=== PATIENT | female | born 1935 | race Caucasian/White ===

== ENCOUNTER 2021-05-28 12:30 | Outpatient (RCR) | payer MEDICARE, BC, SELFPAY ==
--- NOTE | 2021-05-10 11:53 | HP.PTEVAL ---
Patient's Visit Information DELORES MONTOYA is a 86 year old F referred to Physical Therapy by Dr. Alexys Bond MD with a diagnosis of Recurrent falls. Date of Evaluation: 05/10/21 Physical Therapist: Mino Das DPT, OCS, CSCS - Visit Plan Frequency: 2x /Week Duration: 2-4 Weeks Plan: Pt adamant for minimal visits, agreeable to 2x/week for 2 weeks to learn HEP for LE strength and core strength and balance and transfer off floor that she can do at home with pics. pLease give her these as soon as safety allows. HS stretch given today. EG to f/u one month later. - Subjective Dtr in law present and patient not happy about being here. She fell and cannot get up. Fell last week and has done it a couple times. Tripped on sidewalk one time and tripped on lip the other day. No injuries. Hard to get up. Needed UE assist on stand and support. Lives alone and drives adn wants I. Basic ADLs are getting done, scott helps her clean. Dresses herself. Does own grocery shopping. No stairs at home... one up to porch and three to house with bars to hold on to, they are no problem. Sleeps well most of time. No pain, no dizzyness, no neuropathy. Not employed. Hobbies include crossword puzzles and reading and gameshows. No regular exercises. - Objective Walks I but slow and short steps, hesitant at times, no LOB today. Trasnfers with UE I, steps with two rails I, obviously weak in LE and pulls slightly with UE. Bed and chair trasnfers I. Romberg eo and ec I for 30 seconds, recovering from BW perturbations harder than FW. heel and toe raises I. LE AROM WFL and without obvious asymmetries, HS mod tight at -30 90/90 test. reflexes 2/3 patella and achilles. Sensation LE WNL to gross light touch. Coordination to reciprocal tapping at slight deficit B. UE AROM WFL - Balance/Special Test Scores Functional Gait Assessment Score: 22 % Disability: 26.6700 Lower Extremity Functional Score: 43 - Goals Goal 1:: I approp HEP for HS stretch, balance and core./LE strength via HEP Goal Time Frame: 2-4 Weeks Goal 2:: FGA to diminish fall risk Goal Time Frame: 2-4 Weeks Goal 3:: Pt feel 50% safer with mobility Goal Time Frame: 2-4 Weeks - Rehabilitation Potential Physical Therapy Diagnosis: weakness and balance deficits from sedentarism effecting mobility/safety Rehabilitation Potential: Fair - Anticipated Interventions Patient/Client Instruction: Educate patient on: Condition, Plan of Care For the Purpose of:: To increase tolerance to activity/condition/position, To improve ability of physical actions for home/community/work/leisure, To improve gait and locomotor functions Therapeutic Exercise to Include: Balance training, Gait and locomotor training For the Purpose of:: To increase tolerance to activity/condition/position, To improve ability of physical actions for home/community/work/leisure, To improve gait and locomotor functions Thank you for the opportunity to evaluate your patient. For Medicare and Medicare HMO plans, please review the plan of care and approve it. It will need to be FAXED BACK to us at [phone] for Medicare purposes. For Medicare only, by signing this I certify the plan of care. Please let me know if there are questions or concerns regarding this plan of care. Physician Signature: Date:
--- NOTE | 2021-05-28 13:09 | HP.PTDCSUM ---
It has been my pleasure to treat DELORES MONTOYA referred by Dr. Alexys Bond MD, with the diagnosis of Recurrent falls for a total of 4 visit(s). Discharge Date: 05/28/21 Please see the following information for a summary of their discharge status. Subjective: No pain , doing home exercises 3x/week and feeling like it is getting stronger. Doing exercises 3x/week at home and feels better after she does them, doing them in the morning. Feeling stronger overall. No falls since starting PT. No AD used and climbing into truck easier. % Improvement: 25 Objective/Function: +2 on FGA, improving sit to stand and TUG. Wide AURELIA on gait but safe and I today. transfers I without UE. Goal 1:: I approp HEP for HS stretch, balance and core./LE strength via HEP Goal Progress: Goal Met Goal 2:: FGA to diminish fall risk Goal Progress: Goal Met Goal 3:: Pt feel 50% safer with mobility Goal Progress: Progressing Plan: d/c to HEP Discharge Comments: Pt can do exercises at home daily 5-6x/week and does not wish to continue PT any further If there are questions or concerns regarding this patient's physical therapy, please feel free to call me at [phone]. Thank you for the referral of this patient. Sincerely, Mino Das, DPT, OCS, CSCS Balance/Gait/Functional tests - Balance/Special Test Scores Functional Gait Assessment Score: 24 % Disability: 20.0000 Lower Extremity Functional Score: 51 TUG Test Time Seconds: 15 30 Second Chair Rise Test Seconds: 12
== END 2021-05-28 19:00 | disposition home or self-care (01) ==
LOC: PT 12:30
PROVIDERS: PCP Family Medicine; Referring Provider Family Medicine; Visit Provider Family Medicine
DX: R26.89 Other abnormalities of gait and mobility (principal); R29.6 Repeated falls
CPT/HCPCS: 97110; 97162; 97164

== ENCOUNTER 2021-10-29 13:12 | Inpatient (IN) | payer MEDICARE, BC, SELFPAY ==
[2021-10-29] VITALS (16 sets, daily range): BP systolic 103–125; BP diastolic 59–76; PULSE 75–115; RESP 18–26; TEMP 36.5–37.1; O2SAT 88–97; BMI 25.7; BMI 28.1
--- NOTE | 2021-10-29 13:28 | EKG12_ITS ---
Test Reason : Blood Pressure : / mmHG Vent. Rate : 098 BPM Atrial Rate : 468 BPM P-R Int : 000 ms QRS Dur : 156 ms QT Int : 406 ms P-R-T Axes : 000 018 165 degrees QTc Int : 518 ms Atrial fibrillation with premature ventricular or aberrantly conducted complexes Left bundle branch block Abnormal ECG Confirmed by JONNIE LARSEN, JINA ([id number]), research editor DAMARIS RAINES ([id number]) on 10/31/2021 8:15:48 AM Referred By: Confirmed By:JINA CRISTINA MD
--- NOTE | 2021-10-29 13:29 | EDS_ITS ---
HPI History of Present Illness Chief Complaint: General Illness Informant: patient and family Narrative Narrative: 86-year-old female presenting with a several day history of cough runny nose. Brought her to emergency. No reported fevers. She did have 1 emesis yesterday. No diarrhea. He states that they went to urgent care yesterday had a negative COVID and influenza test. Today the patient seemed to have labored breathing and some confusion. She denies sore throat or fever. Cough is nonproductive. Nursing notes pulse ox of 88% with good waveform. [facility] Medical History (Updated 10/29/21 @ 15:[address] Connor Crawford DO) Fracture, humerus closed, shaft Humerus fracture Hyperlipidemia Hypertension Hypokalemia ITP Home Medications cholecalciferol (vitamin D3) 25 mcg (1,000 unit) tablet 1,000 unit PO DAILY 06/22/14 [History Last Taken 03/06/17 22:00] docusate sodium 100 mg capsule 100 mg PO DAILY PRN PRN Constipation 06/22/14 [History Last Taken 03/06/17 22:00] quinapril 40 mg tablet 40 mg PO DAILY BP 06/22/14 [History Last Taken 03/07/17 10:00] amlodipine 5 mg tablet 10 mg PO DAILY BP 07/21/17 [History Last Taken Unknown] hydrochlorothiazide 12.5 mg capsule 12.5 mg PO QODAY 10/29/21 [History Last Taken Unknown] Allergy/AdvReac Type Severity Reaction Status Date / Time Tetanus Vaccines and Toxoid Allergy Low Verified 10/29/21 13:15 [Tetanus Vaccines & Toxoid] platelets Surgical History H/O eye surgery H/O splenectomy H/O: hysterectomy History of laparoscopic cholecystectomy Social History Smoking Status: Former smoker alcohol intake: never ROS ROS ED Constitutional Constitutional ED: Denies chills or weight loss Eyes Eyes: Denies change in vision or diplopia ENT ENT ED: Reports rhinorrhea; Denies ear pain or sore throat Cardiovascular Cardiovascular: Denies chest pain, orthopnea, palpitations or racing heartbeat Respiratory/Chest Respiratory/Chest: Reports cough, dyspnea and dyspnea on exertion; Denies orthopnea Gastrointestinal Gastrointestinal: Reports abdominal pain, nausea and vomiting; Denies diarrhea Genitourinary Genitourinary ED: Denies dysuria, hematuria or urinary frequency Musculoskeletal Musculoskeletal: Denies arthralgias or myalgias Integumentary Denies abscess or rash Neurologic Neurologic: Reports paresthesias and other; Denies headache(s) or weakness Psychiatric Psychiatric: Denies anxiety, depression, suicidal ideation or suicidal thoughts Endocrine Endocrinology: Denies polydipsia, polyphagia or polyuria Allergic/Immunologic Allergic/Immunologic ED: Denies mouth swelling, tongue swelling or urticaria EXAM Physical Exam Const Vital Signs: 10/29/21 13:13 10/29/21 13:37 10/29/21 13:12 Temperature 97.7 F L Temperature Source Temporal Pulse Rate 104 H Respiratory Rate 20 H Respiratory Effort Respiratory Pattern Blood Pressure 108/76 Blood Pressure Mean 86 Pulse Ox 94 94 88 Oxygen Delivery Method Room Air Nasal Cannula Room Air Oxygen Flow Rate (L/min) 2 10/29/21 13:14 10/29/21 13:41 10/29/21 13:50 Temperature 97.7 F L Temperature Source Temporal Pulse Rate 104 H 93 Respiratory Rate 20 H 26 H Respiratory Effort Short of Breath Labored Respiratory Pattern Tachypnea Tachypnea Blood Pressure 108/76 Blood Pressure Mean Pulse Ox 94 Oxygen Delivery Method Nasal Cannula Oxygen Flow Rate (L/min) 2 10/29/21 14:12 10/29/21 14:14 10/29/21 14:17 Temperature 98.8 F Temperature Source Temporal Pulse Rate 103 H Respiratory Rate 22 H Respiratory Effort Respiratory Pattern Blood Pressure 116/59 L Blood Pressure Mean 78 Pulse Ox 93 Oxygen Delivery Method Nasal Cannula Nasal Cannula Nasal Cannula Oxygen Flow Rate (L/min) 2 10/29/21 15:00 10/29/21 15:25 10/29/21 15:34 Temperature 98.4 F Temperature Source Temporal Pulse Rate 103 H 110 H 109 H Respiratory Rate 22 H 20 H 25 H Respiratory Effort Respiratory Pattern Tachypnea Blood Pressure 115/59 L 119/74 Blood Pressure Mean 77 89 Pulse Ox 94 95 Oxygen Delivery Method Nasal Cannula Nasal Cannula Oxygen Flow Rate (L/min) 2 Positive well nourished and well developed General Appearance ED: well developed HEENT Reports normocephalic, head/scalp atraumatic and moist mucous membranes Eyes PERRL and EOMs intact bilaterally Neck no lymphadenopathy, supple and no JVD Resp clear to auscultation bilaterally Resp Narrative: Patient with conversational dyspnea increased respiratory rate in the Cardio regular rate, regular rhythm and no murmurs GI normal to inspection, nondistended, normoactive bowel sounds and non-tender Palpation: soft Back/Spine no CVA tenderness and normal ROM Extremity General Extremety ED: Yes edema General Extremity: edema bilateral Neuro oriented x3 and CN's II-XII intact bilaterally Sensorium / Orientation: alert Motor Exam: strength 5/5 throughout Psych mental status grossly normal Mood & Affect: Negative for depressed or tearful Skin no rashes or lesions noted and no wounds MDM MDM MDM Narrative Medical decision making narrative: My interpretation of the chest x-ray is bilateral pleural effusions and CHF. White count is elevated 12.6. Sodium 121 CO2 of 18 creatinine 1.38 with a BUN of 23. Troponin is at 15. BNP is elevated at 687. Lactic acid is elevated at 2.5 which I suspect is a reflection of her hypoxia rather than a shock state. C TA of the chest was obtained. This is also consistent with CHF with bilateral pleural effusions but no pulmonary embolisms were noted. Plan will be diuresis and admission to hospital. Lab Data Attestation: I reviewed the patient's lab results. Labs: Laboratory Results - last 24 hr 10/29/21 10/29/21 10/29/21 13:30 13:30 13:30 WBC 12.6 H RBC 4.15 L Hgb 12.3 Hct 35.3 L MCV 85.1 MCH 29.6 MCHC 34.8 RDW Std Deviation 39.7 RDW Coeff of Nma 12.8 Plt Count 287 MPV 10.0 Immature Gran % (Auto) 0.500 Neut % (Auto) 84.1 H Lymph % (Auto) 9.0 L Rock % (Auto) 6.2 Eos % (Auto) 0.0 Baso % (Auto) 0.2 Absolute Neuts (auto) 10.6 H Absolute Lymphs (auto) 1.13 Nucleated RBC % 0 PT 13.7 INR 1.1 APTT 26.9 Sodium 121 L Potassium 4.2 Chloride 88 L Carbon Dioxide 18.0 L Anion Gap 15 BUN 23 H Creatinine 1.38 H Estim Creat Clear Calc 25.27 Est GFR (MDRD) Af Amer 47 L Est GFR (MDRD) Non-Af 39 L BUN/Creatinine Ratio 16.7 Glucose 144 H Lactic Acid Calcium 9.0 Total Bilirubin 0.70 AST 42 H ALT 77 H Alkaline Phosphatase 64 Troponin I High Sens 15 B-Natriuretic Peptide Total Protein 6.4 Albumin 3.4 Globulin 3.0 Albumin/Globulin Ratio 1.1 Lipase 93 Urine Color Urine Clarity Urine pH Ur Specific [place] Urine Protein Urine Glucose (UA) Urine Ketones Urine Occult Blood Urine Nitrite Urine Bilirubin Urine Urobilinogen Ur Leukocyte Esterase Urine RBC Urine WBC Ur Squamous Epith Cells Urine Bacteria Urine Mucus 10/29/21 10/29/21 10/29/21 13:30 13:30 15:10 WBC RBC Hgb Hct MCV MCH MCHC RDW Std Deviation RDW Coeff of Nam Plt Count MPV Immature Gran % (Auto) Neut % (Auto) Lymph % (Auto) Rock % (Auto) Eos % (Auto) Baso % (Auto) Absolute Neuts (auto) Absolute Lymphs (auto) Nucleated RBC % PT INR APTT Sodium Potassium Chloride Carbon Dioxide Anion Gap BUN Creatinine Estim Creat Clear Calc Est GFR (MDRD) Af Amer Est GFR (MDRD) Non-Af BUN/Creatinine Ratio Glucose Lactic Acid 2.5 H* Calcium Total Bilirubin AST ALT Alkaline Phosphatase Troponin I High Sens B-Natriuretic Peptide 687.3 H Total Protein Albumin Globulin Albumin/Globulin Ratio Lipase Urine Color Yellow Urine Clarity Clear Urine pH 5.0 Ur Specific [place] 1.010 Urine Protein 30 H Urine Glucose (UA) 50 H Urine Ketones Negative Urine Occult Blood 10 H Urine Nitrite Negative Urine Bilirubin Negative Urine Urobilinogen Normal Ur Leukocyte Esterase 25 H Urine RBC 0 SEEN Urine WBC 0-5 SEEN Ur Squamous Epith Cells 0-5 SEEN Urine Bacteria RARE Urine Mucus 0 SEEN Radiography Diagnostic Testing: Clinical Impression(s) from Imaging Studies Chest X-Ray 10/29/21 14:04 IMPRESSION: Mild congestive heart failure with small bilateral pleural effusions. Electronically Signed: Steven Adrian MD at 14:42 EDT , Chest CTA 10/29/21 14:[address]: [address] evidence of pulmonary embolism. 2. Moderate bilateral pleural effusions with bibasilar atelectasis per Electronically Signed: Steven Adrian MD at 15:38 EDT , EKG Initial EKG: Attestation: I personally reviewed and interpreted this EKG as follows: Comments: Atrial fibrillation with PVCs ventricular rate of 98 bpm Discharge Plan Dx/Rx/DC Orders Clinical Impression: Acute hyponatremia, CHF (congestive heart failure), Acute hypoxemic respiratory failure, Altered mental status Disposition Disposition: Acute Care Hospital [facility]
[2021-10-29 13:42] LABS: Absolute Lymphocyte Count 1.13 X10^3/uL (0.83-4.51); Absolute Neutrophil Count 10.6 X10^3/uL (2.0-7.7); Basophil# 0.02 X10^3/uL; Basophil% 0.2 % (0-1); Hematocrit 35.3 % (37-47); Hemoglobin 12.3 g/dL (12.0-15.0); Lymphocyte # 1.13 X10^3/ul (0.83-4.51); Mean Corp Hgb Conc 34.8 g/dL (32-36); Mean Corpuscular Hgb 29.6 pg (27.0-32.0); Mean Corpuscular Volume 85.1 fL (81-99); Monocyte# 0.78 X10^3/uL; Monocyte% 6.2 % (0-10); NRBC Flagged by Analyzer 0 % (0-5); Neutrophil % 84.1 % (47-70); Platelet Count 287 K/mm3 (150-450); RBC Distribution Width CV 12.8 % (11.6-14.6); RBC Distribution Width SD 39.7 fl (35.1-43.9); Red Blood Count 4.15 M/mm3 (4.2-5.4); White Blood Count 12.6 K/mm3 (4.4-11.0)
[2021-10-29 13:49] LABS: International Normalized Ratio 1.1; Prothrombin Time (Protime)PT. 13.7 SECONDS (11.7-14.9)
[2021-10-29] MEDS: Ipratropium/Albuterol Sulfate 3 ML AMPUL.NEB INHALATION ×2 (13:49→15:25)
[2021-10-29 13:50] LABS: Partial Thromboplast Time 26.9 Seconds (24.1-36.2)
[2021-10-29 13:59] LABS: ALB/GLOB Ratio 1.1 RATIO (0.9-2.4); AST(SGOT) 42 U/L (15-37); Alanine Aminotransfer ALT/SGPT 77 U/L (13-56); Albumin, Serum 3.4 g/dL (3.2-5.0); Alkaline Phosphatase 64 U/L (45-117); Anion Gap 15 (5-15); BNP,B-Type NATRIURETIC PEPTIDE 687.3 pg/mL (0-100); BUN 23 mg/dL (7-18); BUN/Creat Ratio 16.7 RATIO (10-20); Chloride 88 mmol/L (98-107); Creatinine, Serum 1.38 mg/dL (0.55-1.02); EST Glomerular Filtration Rate 39 mL/min (>60); Est Glom Filt Rate - Afr Amer 47 mL/min (>60); Estimated Creatinine Clearance 25.27 ml/min; Glucose 144 mg/dL (74-106); Lipase 93 U/L (73-393); Potassium 4.2 mmol/L (3.5-5.1); Protein, Total 6.4 g/dL (6.4-8.2); Sodium Level 121 mmol/L (136-145); Troponin-I HS 15 pg/mL (3.0-54.0)
--- NOTE | 2021-10-29 14:04 | RAD_ITS ---
STUDY: X-RAY CHEST REASON FOR EXAM: Female, 86 years old. dyspnea TECHNIQUE: Single AP portable view of the chest. COMPARISON: 03/08/2017 FINDINGS: The lungs are clear and expanded. Small bilateral pleural effusions with bibasilar atelectasis. There is moderate cardiac enlargement. Normal mediastinum and gely. There is prominence of the pulmonary hilar arteries and peripheral pulmonary arteries, consistent with congestive heart failure (CHF). Normal visualized aortic arch and descending thoracic aorta. Normal visualized thoracic spine. Normal visualized ribs, clavicles, and shoulders. There is no demonstrated abnormality of the visualized soft tissue structures of the upper abdomen. RAD/Chest 1 View (Portable) IMPRESSION: Mild congestive heart failure with small bilateral pleural effusions. Electronically Signed: Steven Adrian MD at 14:42 EDT ,
[2021-10-29 14:06] LABS: Lactic Acid 2.5 mmol/L (0.4-1.9)
--- NOTE | 2021-10-29 14:12 | CT_ITS ---
STUDY: CTA CHEST REASON FOR EXAM: Female, 86 years old. pulmonary embolism RADIATION DOSAGE (If Supplied By Facility): CTDIvol = ( 10.91 ) mGy, DLP = ( 364.66 ) mGycm TECHNIQUE: The examination was performed with the intravenous administration of IV 100mL [id number]-370. Post-processing of the angiographic images was performed, with multiplanar reformation and 3D reconstruction. Individualized dose optimization techniques were used for this CT. COMPARISON: Chest x-ray earlier today FINDINGS: Normal enhancement of the main pulmonary artery and right and left pulmonary arteries. Normal enhancement of the bilateral peripheral pulmonary arteries. There is no demonstrated pulmonary embolism. Normal thoracic aorta and visualized great vessels. There is no demonstrated aortic dissection. There is cardiomegaly. Normal mediastinum. Normal hilar regions. Normal visualized trachea and bronchi. The lungs are well expanded. Normal pulmonary parenchyma. Moderate bilateral pleural effusions with bibasilar atelectasis. Normal chest wall structures. Normal osseous structures. Normal visualized upper abdomen. CT/CTA Chest W/WO Contrast IMPRESSION: 1. No CT evidence of pulmonary embolism. 2. Moderate bilateral pleural effusions with bibasilar atelectasis per Electronically Signed: Steven Adrian MD at 15:38 EDT ,
--- NOTE | 2021-10-29 15:27 | CPS ---
pt has audible wheeze that seems to be upper resp. No exp wheezing in the lungs.
[2021-10-29 15:28] LABS: Mucous, Urine 0 SEEN /hpf (<or=2+); Red Blood Cells-Urine 0 SEEN /hpf (0-5)
[2021-10-29 15:32] LABS: Color, Urine Yellow (Yellow); Glucose, Dipstick 50 mg/dl (Normal); Ketone-Dipstick Negative (Negative); Leukocyte Esterase-Dipstick 25 /ul (Negative); Nitrite-Dipstick Negative (Negative); Occult Blood-Urine 10 /ul (Negative); Protein-Dipstick 30 mg/dl (Negative); Urine Bilirubin Dipstick Negative (Negative); Urine Clarity Clear (Clear); Urine Urobilinogen Normal (Normal)
[2021-10-29] MEDS: Furosemide 100 MG/10 ML Vial 60 MG IV (15:37)
[2021-10-29 15:48] LABS: Bacteria RARE /hpf (None Seen); Squamous Epithelial Cells - UA 0-5 SEEN /hpf (5-10); White Blood Cells 0-5 SEEN /hpf (0-5)
--- NOTE | 2021-10-29 15:57 | NURSING ---
WENDY DELATORRE CHF, HYPOXIA
--- NOTE | 2021-10-29 16:19 | HP.PCM.HOS_ITS ---
[facility] - General General Date of Admission: 10/29/21 Date of Service: 10/29/21 Chief Complaint: Shortness of breath HPI Narrative DELORES MONTOYA, is a 86 F who presents with a several day history of shortness of breath and cough. Came to the emergency room and had an elevated BNP and a CTA of her chest that showed bilateral pleural effusions with pulmonary vascular congestion. Patient does complain of epigastric pain. Patient was also noted to be in atrial fibrillation with RVR with heart rate 1-teens. Patient has no prior history of cardiac disease that she is aware of. [facility] Medical History (Updated 10/29/21 @ 16:[address] Mino Saldana DO) Fracture, humerus closed, shaft Humerus fracture Hyperlipidemia Hypertension Hypokalemia ITP Home Medications cholecalciferol (vitamin D3) 25 mcg (1,000 unit) tablet 1,000 unit PO DAILY 06/22/14 [History Last Taken 03/06/17 22:00] docusate sodium 100 mg capsule 100 mg PO DAILY PRN PRN Constipation 06/22/14 [History Last Taken 03/06/17 22:00] quinapril 40 mg tablet 40 mg PO DAILY BP 06/22/14 [History Last Taken 03/07/17 10:00] amlodipine 5 mg tablet 10 mg PO DAILY BP 07/21/17 [History Last Taken Unknown] hydrochlorothiazide 12.5 mg capsule 12.5 mg PO QODAY 10/29/21 [History Last Taken Unknown] Allergy/AdvReac Type Severity Reaction Status Date / Time Tetanus Vaccines and Toxoid Allergy Low Verified 10/29/21 13:15 [Tetanus Vaccines & Toxoid] platelets Family History (Updated 10/29/21 @ 16:[address] Mino Saldana DO) Brother Heart disease Surgical History H/O eye surgery H/O splenectomy H/O: hysterectomy History of laparoscopic cholecystectomy Social History Smoking Status: Former smoker alcohol intake: never ROS ROS Narrative Unknown if she has any weight change. Lower extremity edema over the past couple days. Some nausea and vomiting today. All review of systems were negative except as mentioned above in the history of present illness and the other review of systems. Vital Signs Vital Signs Vital Signs: 10/29/21 13:13 10/29/21 13:37 10/29/21 13:12 Temperature 36.5 C L Temperature Source Temporal Pulse Rate 104 H Respiratory Rate 20 H Respiratory Effort Respiratory Pattern Blood Pressure 108/76 Blood Pressure Mean 86 Pulse Ox 94 94 88 Oxygen Delivery Method Room Air Nasal Cannula Room Air Oxygen Flow Rate (L/min) 2 10/29/21 13:14 10/29/21 13:41 10/29/21 13:50 Temperature 36.5 C L Temperature Source Temporal Pulse Rate 104 H 93 Respiratory Rate 20 H 26 H Respiratory Effort Short of Breath Labored Respiratory Pattern Tachypnea Tachypnea Blood Pressure 108/76 Blood Pressure Mean Pulse Ox 94 Oxygen Delivery Method Nasal Cannula Oxygen Flow Rate (L/min) 2 10/29/21 14:12 10/29/21 14:14 10/29/21 14:17 Temperature 37.1 C Temperature Source Temporal Pulse Rate 103 H Respiratory Rate 22 H Respiratory Effort Respiratory Pattern Blood Pressure 116/59 L Blood Pressure Mean 78 Pulse Ox 93 Oxygen Delivery Method Nasal Cannula Nasal Cannula Nasal Cannula Oxygen Flow Rate (L/min) 2 10/29/21 15:00 10/29/21 15:25 10/29/21 15:34 Temperature 36.9 C Temperature Source Temporal Pulse Rate 103 H 110 H 109 H Respiratory Rate 22 H 20 H 25 H Respiratory Effort Respiratory Pattern Tachypnea Blood Pressure 115/59 L 119/74 Blood Pressure Mean 77 89 Pulse Ox 94 95 Oxygen Delivery Method Nasal Cannula Nasal Cannula Oxygen Flow Rate (L/min) 2 10/29/21 15:58 Temperature 36.6 C Temperature Source Temporal Pulse Rate 114 H Respiratory Rate 20 H Respiratory Effort Respiratory Pattern Blood Pressure 125/75 H Blood Pressure Mean 91 Pulse Ox 93 Oxygen Delivery Method Nasal Cannula Oxygen Flow Rate (L/min) 2 Weight Weight: 68.039 kg Body Mass Index (BMI) 25.7 Physical Exam Const alert, no apparent distress and average body habitus HEENT normocephalic, head/scalp atraumatic, hearing grossly normal bilaterally and moist oral mucous membranes Resp normal respiratory effort and no retractions Resp Narrative: Bibasilar crackles. Cardio regular rate, regular rhythm, S1 normal heart sound and S2 normal heart sound GI normal to inspection, nondistended, normoactive bowel sounds GI Narrative: Slight epigastric tenderness with deep palpation. No rebound. Extremity Extremity Narrative: Bilateral lower extremity edema, nonpitting. Neuro oriented x3 Sensorium / Orientation: awake and alert Psych affect normal Results Lab / Micro Data Attestation: I reviewed the patient's lab results. Result Diagrams: 10/29/21 13:30 10/29/21 13:30 Labs: Laboratory Results - last 24 hr 10/29/21 13:30: WBC 12.6 H, RBC 4.15 L, Hgb 12.3, Hct 35.3 L, MCV 85.1, MCH 29.6, MCHC 34.8, RDW Std Deviation 39.7, RDW Coeff of Nam 12.8, Plt Count 287, MPV 10.0, Immature Gran % (Auto) 0.500, Neut % (Auto) 84.1 H, Lymph % (Auto) 9.0 L, [place] % (Auto) 6.2, Eos % (Auto) 0.0, Baso % (Auto) 0.2, Absolute Neuts (auto) 10.6 H, Absolute Lymphs (auto) 1.13, Nucleated RBC % 0 10/29/21 13:30: PT 13.7, INR 1.1, APTT 26.9 10/29/21 13:30: Sodium 121 L, Potassium 4.2, Chloride 88 L, Carbon Dioxide 18.0 L, Anion Gap 15, BUN 23 H, Creatinine 1.38 H, Estim Creat Clear Calc 25.27, Est GFR (MDRD) Af Amer 47 L, Est GFR (MDRD) Non-Af 39 L, BUN/Creatinine Ratio 16.7, Glucose 144 H, Calcium 9.0, Total Bilirubin 0.70, AST 42 H, ALT 77 H, Alkaline Phosphatase 64, Troponin I High Sens 15, Total Protein 6.4, Albumin 3.4, Globulin 3.0, Albumin/Globulin Ratio 1.1, Lipase 93 10/29/21 13:30: Lactic Acid 2.5 H* 10/29/21 13:30: B-Natriuretic Peptide 687.3 H 10/29/21 15:10: Urine Color Yellow, Urine Clarity Clear, Urine pH 5.0, Ur Specific [place] 1.010, Urine Protein 30 H, Urine Glucose (UA) 50 H, Urine Ketones Negative, Urine Occult Blood 10 H, Urine Nitrite Negative, Urine Bilirubin Negative, Urine Urobilinogen Normal, Ur Leukocyte Esterase 25 H, Urine RBC 0 SEEN, Urine WBC 0-5 SEEN, Ur Squamous Epith Cells 0-5 SEEN, Urine Bacteria RARE, Urine Mucus 0 SEEN Micro: Microbiology 10/29/21 13:45 Nasal Secretion SARS-CoV-2 & FLU Antigen (Rapid) - Final EKG Initial EKG: Attestation: I personally reviewed and interpreted this EKG as follows: Prior EKG tracings: available for review EKG Rhythm Intrepretation: Atrial Fibrillation (Left bundle branch block) Radiology Impression Chest X-Ray 10/29/21 14:04 IMPRESSION: Mild congestive heart failure with small bilateral pleural effusions. Electronically Signed: Steven Adrian MD at 14:42 EDT Reading Location ID and State: [employer] / [employer] Tel , Service support , Chest CTA 10/29/21 14:12 IMPRESSION: 1. No CT evidence of pulmonary embolism. 2. Moderate bilateral pleural effusions with bibasilar atelectasis per Electronically Signed: Steven Adrian MD at 15:38 EDT Reading Location ID and State: [employer] / [employer] Tel , Service support , Assessment & Plan Assessment/Plan (1) CHF (congestive heart failure): QUALIFIERS: Heart failure type: unspecified Heart failure chronicity: acute Qualified Code(s): I50.9 - Heart failure, unspecified (2) Acute hyponatremia: (3) Acute hypoxemic respiratory failure: (4) Pleural effusion: (5) Atrial fibrillation: QUALIFIERS: Atrial fibrillation type: unspecified Qualified Code(s): I48.91 - Unspecified atrial fibrillation PLAN: Plan 1. Acute CHF exacerbation Unclear type Plan: * IV furosemide * Check echocardiogram * May need cardiology consultation depending on patient's clinical course and echocardiogram results. Did discuss possibility of cardiac catheterization if it does come to that patient's course and additional findings. I discussed this with the patient and her son who is at bedside. 2. Atrial fibrillation Unclear type Unclear how long its been going on [id number] score of 5 Plan: * Metoprolol titrate * Anticoagulate with enoxaparin for now 3. Hyponatremia Suspect due to HCTZ Plan: DC HCTZ and monitor 4. Pleural effusions Secondary to CHF Treat as above Note plan for thoracentesis at this time 5. VTE prophylaxis: Not indicated as patient is anticoagulated 6. CODE STATUS: Addressed with patient. Patient was to be full code. Charges/Coding Visit Charges Inpatient E&M: 44863 Init Hosp L3
--- NOTE | 2021-10-29 16:48 | ECHOD_ITS ---
Reason For Study: CHF Procedure This was a 2D Doppler, Color Flow transthoracic echocardiogram. The study was technically difficult. Exam performed portable in patient room. Left Ventricle Mildly dilated left ventricle. Moderate global left ventricular systolic dysfunction. The estimated ejection fraction is 30 %. Unable to assess diastolic dysfunction. Right Ventricle Normal RV size. Normal systolic function. Atria The left atrium is moderately enlarged. The right atrium is moderately enlarged. No doppler evidence for ASD. Mitral Valve There is mild mitral annular calcification. Mild focal mitral valve calcification of the anterior leaflet. The mitral valve chordae are thickened and/or calcified. Moderate (2+) mitral valve insufficiency. 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 Moderate (2+) tricuspid valve insufficiency. Right ventricular systolic pressure estimated to be 41 mmHg. Aortic Valve The aortic valve is not well visualized. Mild focal aortic valve calcification. Pulmonic Valve The pulmonic valve is not well visualized. Great Vessels The aortic root is not well visualized. Pericardium/Pleural No pericardial effusion. Echolucency c/w a pleural effusion. MMode/2D Measurements & Calculations LVIDd: 5.3 cm IVSd: 1.2 cm LA dimension: 4.1 cm LVIDs: 4.7 cm LVPWd: 1.2 cm FS: 11.1 % LAV(MOD-bp): 74.5 ml LA A4 area: 26.3 cm2 RA A4 area: 25.4 cm2 LAV(MOD-bp) Indexed: 41.4 ml/m2 LAV(MOD-sp2): 53.4 ml LAV(MOD-sp4): 98.4 ml Doppler Measurements & Calculations MV E max [place]: 140.4 cm/sec Ao V2 max: 113.2 cm/sec AI max [place]: 351.6 cm/sec Ao max P.2 mmHg AI max P.5 mmHg AI dec slope: 257.1 cm/sec2 AI P1/2t: 400.6 msec LV V1 max: 85.5 cm/sec MR max [place]: 423.1 cm/sec PA V2 max: 73.8 cm/sec LV V1 max P.0 mmHg MR max P.6 mmHg MR mean [place]: 305.4 cm/sec MR mean P.5 mmHg MR VTI: 133.7 cm TR max [place]: 288.9 cm/sec TR max P.4 mmHg ECHO/Echo Complete Interpretation Summary The study was technically difficult. Mildly dilated left ventricle. Moderate global left ventricular systolic dysfunction. The estimated ejection fraction is 30 %. The left atrium is moderately enlarged. The right atrium is moderately enlarged. There is mild mitral annular calcification. Mild focal mitral valve calcification of the anterior leaflet. The mitral valve chordae are thickened and/or calcified. Moderate (2+) mitral valve insufficiency. Ebsteins anomaly of the tricuspid valve. Moderate (2+) tricuspid valve insufficiency. Mild focal aortic valve calcification. Echolucency c/w a pleural effusion. Right ventricular systolic pressure estimated to be 41 mmHg. Unable to assess diastolic dysfunction. Ordering Physician: Mino Saldana Referring Physician: MD Alexys Bond Performed By: Bret Douglass [facility]
[2021-10-29 17:36] LABS: Reflex Lactate? Y
[2021-10-29] MEDS: Furosemide 40 MG/4 ML Vial IV (18:16)
[2021-10-29] MEDS: 0.9% Saline Lock 10 ML Syringe IV (18:16)
[2021-10-29] MEDS: Enoxaparin 80 MG/0.8 ML Syringe 70 MG SC (18:17)
[2021-10-29] MEDS: Ondansetron 4 MG/2 ML Vial IV (18:21)
[2021-10-29 18:36] LABS: Lactic Acid 1.6 mmol/L (0.4-1.9)
[2021-10-30] VITALS (11 sets, daily range): BP systolic 105–128; BP diastolic 60–77; PULSE 88–114; RESP 18–19; TEMP 36.4–36.9; O2SAT 90–96
[2021-10-30 06:56] LABS: Anion Gap 12 (5-15); BUN 22 mg/dL (7-18); BUN/Creat Ratio 19.1 RATIO (10-20); Calcium,Total 8.7 mg/dL (8.5-10.1); Chloride 90 mmol/L (98-107); Creatinine, Serum 1.15 mg/dL (0.55-1.02); EST Glomerular Filtration Rate 48 mL/min (>60); Est Glom Filt Rate - Afr Amer 58 mL/min (>60); Estimated Creatinine Clearance 30.32 ml/min; Glucose 105 mg/dL (74-106); Potassium 3.4 mmol/L (3.5-5.1); Sodium Level 124 mmol/L (136-145); Thyroid Stim Hormone (TSH) 1.62 uIU/mL (0.358-3.74)
--- NOTE | 2021-10-30 08:02 | PCM.PN.HOSP ---
Subjective Subjective breathing better Objective Data Objective Data Vital Signs: Vital Signs Temp Pulse Resp BP Pulse Ox O2 Del Method O2 Flow Rate 36.8 C 88 18 115/77 94 Nasal Cannula 3 10/30/21 03:00 10/30/21 07:00 10/30/21 03:00 10/30/21 03:00 10/30/21 03:00 10/30/21 03:00 10/30/21 03:00 Oxygen Flow Rate (L/min) 3 Oxygen Delivery Method Nasal Cannula Weight: 72.9 kg Body Mass Index (BMI) 28.1 Intake & Output: Intake and Output for Last 24 Hours 10/28/21 10/29/21 10/30/21 23:59 23:59 23:59 Intake Total 120 / 120 Output Total 600 / 600 300 / 300 Balance -480 / -480 -300 / -300 Lab / Micro Data Result Diagrams: 10/29/21 13:30 10/30/21 05:50 Labs: Laboratory Results - last 24 hr 10/29/21 13:30: WBC 12.6 H, RBC 4.15 L, Hgb 12.3, Hct 35.3 L, MCV 85.1, MCH 29.6, MCHC 34.8, RDW Std Deviation 39.7, RDW Coeff of Nam 12.8, Plt Count 287, MPV 10.0, Immature Gran % (Auto) 0.500, Neut % (Auto) 84.1 H, Lymph % (Auto) 9.0 L, [place] % (Auto) 6.2, Eos % (Auto) 0.0, Baso % (Auto) 0.2, Absolute Neuts (auto) 10.6 H, Absolute Lymphs (auto) 1.13, Nucleated RBC % 0 10/29/21 13:30: PT 13.7, INR 1.1, APTT 26.9 10/29/21 13:30: Sodium 121 L, Potassium 4.2, Chloride 88 L, Carbon Dioxide 18.0 L, Anion Gap 15, BUN 23 H, Creatinine 1.38 H, Estim Creat Clear Calc 25.27, Est GFR (MDRD) Af Amer 47 L, Est GFR (MDRD) Non-Af 39 L, BUN/Creatinine Ratio 16.7, Glucose 144 H, Calcium 9.0, Total Bilirubin 0.70, AST 42 H, ALT 77 H, Alkaline Phosphatase 64, Troponin I High Sens 15, Total Protein 6.4, Albumin 3.4, Globulin 3.0, Albumin/Globulin Ratio 1.1, Lipase 93 10/29/21 13:30: Lactic Acid 2.5 H* 10/29/21 13:30: B-Natriuretic Peptide 687.3 H 10/29/21 15:10: Urine Color Yellow, Urine Clarity Clear, Urine pH 5.0, Ur Specific [place] 1.010, Urine Protein 30 H, Urine Glucose (UA) 50 H, Urine Ketones Negative, Urine Occult Blood 10 H, Urine Nitrite Negative, Urine Bilirubin Negative, Urine Urobilinogen Normal, Ur Leukocyte Esterase 25 H, Urine RBC 0 SEEN, Urine WBC 0-5 SEEN, Ur Squamous Epith Cells 0-5 SEEN, Urine Bacteria RARE, Urine Mucus 0 SEEN 10/29/21 17:53: Lactic Acid 1.6 10/30/21 05:50: Sodium 124 L, Potassium 3.4 L, Chloride 90 L, Carbon Dioxide 22.0, Anion Gap 12, BUN 22 H, Creatinine 1.15 H, Estim Creat Clear Calc 30.32, Est GFR (MDRD) Af Amer 58 L, Est GFR (MDRD) Non-Af 48 L, BUN/Creatinine Ratio 19.1, Glucose 105, Calcium 8.7, TSH 1.62 Micro: Microbiology 10/29/21 13:45 Nasal Secretion SARS-CoV-2 & FLU Antigen (Rapid) - Final Radiography Diagnostic Testing: Radiology Impression Chest X-Ray 10/29/21 14:04 IMPRESSION: Mild congestive heart failure with small bilateral pleural effusions. Electronically Signed: Steven Adrian MD at 14:42 EDT Reading Location ID and State: [facility] / [place] Tel , Service support , Chest CTA 10/29/21 14:12 IMPRESSION: 1. No CT evidence of pulmonary embolism. 2. Moderate bilateral pleural effusions with bibasilar atelectasis per Electronically Signed: Steven Adrian MD at 15:38 EDT Reading Location ID and State: [id number] / [employer] Tel , Service support , Physical Exam Const alert and no apparent distress HEENT head/scalp atraumatic Resp normal respiratory effort and no retractions Resp Narrative: Bibasilar crackles Cardio regular rate, regular rhythm, S1 normal heart sound and S2 normal heart sound GI normal to inspection, nondistended, normoactive bowel sounds, soft to palpation and non-tender Psych affect normal Assessment & Plan Assessment/Plan (1) CHF (congestive heart failure): QUALIFIERS: Heart failure chronicity: acute Heart failure type: unspecified Qualified Code(s): I50.9 - Heart failure, unspecified (2) Acute hyponatremia: (3) Acute hypoxemic respiratory failure: (4) Pleural effusion: (5) Atrial fibrillation: QUALIFIERS: Atrial fibrillation type: unspecified Qualified Code(s): I48.91 - Unspecified atrial fibrillation PLAN: Plan 1. Acute heart failure with reduced ejection fraction Unclear type Plan: IV furosemide 2D echo shows an EF of 30%. Left atrium is moderately enlarged. Right atrium moderately enlarged. Right ventricular systolic pressure 41 mmHg. Consult cardiology given the reduced ejection fraction. Did discuss possibility of cardiac catheterization if it does come to that patient's course and additional findings. I discussed this with the patient and her son who is at bedside. 2. Atrial fibrillation Unclear how long its been going on [id number] score of 5 Plan: Metoprolol tartrate Anticoagulate with enoxaparin for now. Continue for now but can likely change to apixaban. 3. Hyponatremia Improved. Suspect due to HCTZ Plan: Continue to hold HCTZ and monitor 4. Pleural effusions Secondary to CHF Treat as above No plan for thoracentesis at this time 5. VTE prophylaxis: Not indicated as patient is anticoagulated 6. CODE STATUS: Addressed with patient. Patient was to be full code. Charges/Coding Visit Charges Inpatient E&M: 54986 Subs Hosp L2
[2021-10-30] MEDS: Cholecalciferol (VIT D3) 25 MCG TABLET (1,000 UNITS) PO (10:05)
[2021-10-30] MEDS: Metoprolol Tartrate 50 MG Tablet PO (10:05)
[2021-10-30] MEDS: Enoxaparin 80 MG/0.8 ML Syringe 70 MG SC ×2 (10:05→21:32)
[2021-10-30] MEDS: Furosemide 40 MG/4 ML Vial IV ×2 (10:05→17:11)
[2021-10-30] MEDS: 0.9% Saline Lock 10 ML Syringe IV ×2 (10:08→23:01)
--- NOTE | 2021-10-30 13:20 | CASEMGMT ---
FLAKO ACEVEDO assessment: Face to Face with patient for initial transition planning/care coordination assessment. FLAKO ACEVEDO introduced self and role at [facility], pt voices understanding and consents to assessment. Pt is A/Ox4 and answers questions appropriately. Pt is sitting up in bed in no distress on 3L nc.? Care providers, pharmacy,?and demographics verified. ? Presentation: Pt c/o cough, abd pain, N/V, runny nose, dizziness x4 days Admitting dx: CHF, hypoxia PCP: Ronda Specialists: None [facility]erred [facility]acy[facility] Insurance: MCR A/B, [place] Prescription Benefit:? Yes Living Will/HPOA: Pt does not have LW/HPOA and declines AD info. LNOK: Cynthia Giron, [id number] Living Arrangements: Pt lives alone in mobile home with 1 step in and states no concerns at home. Pt is independent with ADL's. Transportation: Pt states drives self and states no transportation concerns. DME/HHC: Pt has a walk-in shower, cane, and walker. Pt declines need for any further DME. Pt states has had HHC in the past and has been to [facility] in past. Pt states no concerns with going home at time of discharge. Pt is retired. Pt states does not smoke cigarettes or drink ETOH. Pt voices no further concerns/needs. CM to follow for therapy notes, home oxygen testing, and any further discharge planning/needs. Advised pt to ask for CM if any further questions/concerns/needs arise, voices understanding. Pt Goal: Home Plan: Home [place] FLAKO ACEVEDO
[2021-10-30] MEDS: Potassium Chloride Oral Tablet 20 MEQ 40 MEQ PO (19:31)
--- NOTE | 2021-10-30 20:26 | CON.PCM.CA_ITS ---
Assessment & Plan Assessment/Plan (1) Atrial fibrillation: QUALIFIERS: Atrial fibrillation type: unspecified Qualified Code(s): I48.91 - Unspecified atrial fibrillation PLAN: The patient appears to have atrial fibrillation. The etiology may be mul tifactorial secondary to combination of her age, hypertension, and underlying cardiovascular/pulmonary disease. The duration of atrial fibrillation is unknown at this time. She we will continue to be monitored. She will continue rate control therapy as deemed appropriate. She will continue anticoagulant therapy as deemed appropriate. (2) CHF (congestive heart failure): QUALIFIERS: Heart failure type: unspecified Heart failure chronicity: acute Qualified Code(s): I50.9 - Heart failure, unspecified PLAN: The patient appears to have findings compatible with CHF. Based upon her objective studies this appears to be CHF with reduced ejection fraction. At the moment she is being monitored. She is continuing medical management which has included IV diuretics. Over time additional agents such as beta-blockers, afterload reducing agents, etc. can be adjusted. She is already undergone evaluation with a transthoracic echocardiogram. It would not be unreasonable based upon her cardiovascular risks and objective findings to evaluate her with a diagnostic cardiac catheterization as to whether or not she has any underlying CAD that would be contributing to her clinical course that would require additional evaluation and care. The procedure and r isk were discussed with her. She was agreeable to this approach. (3) Pleural effusion: PLAN: She does have pleural effusions which appear to be related to her CHF. She will continue medical management with diuresis. (4) Cardiomyopathy: PLAN: Again its unclear as to whether her cardiomyopathy is a non-CAD related cardiomyopathy and whether there is any relationship to her atrial fibrillation versus being related to CAD that is yet to be identified. At the moment she will continue medical management. Again it would be reasonable to evaluate her for the possibility of CAD with a diagnostic cardiac catheterization. (5) Acute hyponatremia: PLAN: She was noted to have hyponatremia. This may be secondary to her CHF. Her electrolytes will need to be followed while she undergoes evaluation and care. (6) Hyperlipidemia: PLAN: She has a reported history of hyperlipidemia. She will continue evaluation and care as deemed appropriate. (7) Hypertension: PLAN: She has a history of hypertension. She will need to continue medical management as deemed appropriate. Addt'l Comments The above was discussed and reviewed with the patient. This note was generated using a voice recognition system and there may be incorrect words, spelling or punctuation that were not noted when reviewing the office note prior to saving. HPI Consult Data Date of Consult: 10/30/21 HPI Narrative HPI Narrative: DELORES MONTOYA, is a 86 year old white female who presents for cardiovascular c onsultation for concerns of congestive heart failure with subsequent objective findings of atrial fibrillation and an abnormal transthoracic echocardiogram suggesting an underlying left ventricular systolic dysfunction with an LVEF of 30%. The patient states she was told by a friend that she did not look well last Friday. She states this past Friday she began to feel tired and fatigued. Over time she has noted that she has been somewhat more short of breath and audibly wheezing. She is also noted the development of lower extremity peripheral pitting edema. She does has not described any ongoing chest discomfort or acute orthopnea or PND. There has been no report of palpitations, near-syncope, or syncope. Based upon her concerns she presented to [facility] for further evaluation. She was noted to be hypoxic. She states the original concern was that she may have had the influenza virus or the COVID-19 virus. She was tested for both and was found negative for both. A chest x-ray suggested evidence of increased pulmonary vascularity and bilateral pleural effusions. A chest CTA was negative for great vessel disease/thromboembolic disease. Her cardiac rhythm on ECG appeared to suggest atrial fibrillation. She has subsequently undergone further evaluation with a transthoracic echocardiogram with the findings as noted below. She has now been referred for further evaluation with cardiovascular consultation. In the interim she has been treated medically. This is included IV diuretic therapy. [facility] Medical History (Updated 10/30/21 @ 20:[address] Issa Oglesby MD) Fracture, humerus closed, shaft Humerus fracture Hyperlipidemia Hypertension Hypokalemia ITP Home Medications cholecalciferol (vitamin D3) 25 mcg (1,000 unit) tablet 1,000 unit PO DAILY supplement 06/22/14 [History Last Taken 10/29/21] docusate sodium 100 mg capsule 100 mg PO DAILY PRN PRN Constipation 06/22/14 [History Last Taken 10/28/21] quinapril 40 mg tablet 40 mg PO DAILY BP 06/22/14 [History Last Taken 10/29/21] amlodipine 5 mg tablet 10 mg PO DAILY BP 07/21/17 [History Last Taken 10/28/21] acetaminophen 500 mg tablet (Acetaminophen Pain Relief) 1,000 mg PO Q6H PRN Pain (Scale Score 1-10) 10/29/21 [History Last Taken Unknown] hydrochlorothiazide 12.5 mg capsule 12.5 mg PO QODAY B/P 10/29/21 [History Last Taken 10/29/21] melatonin 5 mg tablet 5 mg PO QHS PRN Sleep 10/29/21 [History Last Taken 10/28/21] Allergy/AdvReac Type Severity Reaction Status Date / Time Tetanus Vaccines and Toxoid Allergy Low Verified 10/29/21 13:15 [Tetanus Vaccines & Toxoid] platelets Family History (Updated 10/29/21 @ 16:[address] Mino Saldana DO) Brother Heart disease Surgical History H/O eye surgery H/O splenectomy H/O: hysterectomy History of laparoscopic cholecystectomy Social History Smoking Status: Former smoker alcohol intake: never ROS Constitutional Constitutional: Reports as per HPI Eyes Eyes: Reports as per HPI ENT HEENT: Reports as per HPI Cardiovascular Cardiovascular: Reports dyspnea and edema Respiratory/Chest Respiratory/Chest: Reports dyspnea and wheezing Gastrointestinal Gastrointestinal: Reports as per HPI Genitourinary Genitourinary: Reports as per HPI Musculoskeletal Musculoskeletal: Reports as per HPI Integumentary Integumentary: Reports as per HPI Neurologic Neurologic: Reports as per HPI Psychiatric Psychiatric: Reports as per HPI Physical Exam Narrative This is an 86-year-old hard of hearing white female who appears to be resting reasonably comfortably at the moment and in no acute distress. Const alert, oriented x3 and no apparent distress Orientation / Consciousness: awake HEENT normocephalic and head/scalp atraumatic Eyes PERRL, EOMs intact bilaterally, conjunctivae normal and no scleral icterus Neck full ROM, supple and no JVD Resp Auscultation: wheezes scattered wheezes and diminished lung sounds bilateral lower Cardio Rhythm: abnormal rhythm irregularly irregular Heart Sounds: S1 normal and S2 normal GI normal to inspection, nondistended, normoactive bowel sounds Extremity General Extremity: edema bilateral lower extremity Details: mild Skin no rashes or lesions noted Psych mental status grossly normal Risk Stratification Risk Stratification Applicable: No Procedure Criteria Type of Procedure Procedure Type: Elective Elective Risks - COVID COVID Risk Discussion: The surgeon/proceduralist and patient have discussed in detail the risk of exposure to and/or potential harm posed by the COVID-19 virus with having a surgery/procedure at this time versus the risk of delaying the surgery/procedure. It is not possible to know either the risk of delaying the surgery or procedure or chance of getting an infection with perfect accuracy, but a joint decision was made between the patient and the surgeon/proceduralist to proceed at this time with the scheduled surgery/procedure as indicated on the consent form. Objective Data Vital Signs: Vital Signs Temp Pulse Resp BP Pulse Ox O2 Del Method O2 Flow Rate 98.4 F 114 H 18 128/68 H 96 Nasal Cannula 3 10/30/21 15:00 10/30/21 19:00 10/30/21 15:00 10/30/21 15:00 10/30/21 15:00 10/30/21 15:00 10/30/21 13:29 Oxygen Flow Rate (L/min) 3 Oxygen Delivery Method Nasal Cannula Weight: 160 lb 11.472 oz Body Mass Index (BMI) 28.1 Intake & Output: Intake and Output for Last 24 Hours 10/28/21 10/29/21 10/30/21 23:59 23:59 23:59 Intake Total 120 / 120 360 / 360 Output Total 600 / 600 700 / 700 Balance -480 / -480 -340 / -340 Lab / Micro Data Result Diagrams: 10/29/21 13:30 10/30/21 05:50 Labs: Laboratory Results - last 24 hr 10/30/21 05:50: Sodium 124 L, Potassium 3.4 L, Chloride 90 L, Carbon Dioxide 22.0, Anion Gap 12, BUN 22 H, Creatinine 1.15 H, Estim Creat Clear Calc 30.32, Est GFR (MDRD) Af Amer 58 L, Est GFR (MDRD) Non-Af 48 L, BUN/Creatinine Ratio 19.1, Glucose 105, Calcium 8.7, TSH 1.62 Cardiology Labs/Tests 10/30/21 05:50: Sodium 124 L, Potassium 3.4 L, Chloride 90 L, Carbon Dioxide 22.0, Anion Gap 12, BUN 22 H, Creatinine 1.15 H, Est GFR (MDRD) Af Amer 58 L, Est GFR (MDRD) Non-Af 48 L, BUN/Creatinine Ratio 19.1, Glucose 105, Calcium 8.7 Rhythm: Atrial fibrillation EKG: Atrial fibrillation; left bundle branch block pattern ECHO: As noted below Stress Test: DATE OF SERVICE:? 10/07/2016 An 81-year-old lady for preoperative cardiac evaluation. Resting EKG demonstrates normal sinus rhythm with a rate of 67 beats per minute.? Normal intervals are noted.? Left bundle-branch block is noted.? Resting blood pressure was 148/80. 0.4 mg of regadenoson was infused per usual protocol followed by rapid intravenous saline flush injection.? Continuous EKG monitoring was performed.? The patient maintained sinus rhythm with a left bundle-branch block throughout the recording.? The resting blood pressure was 148/80 with a peak blood pressure of 158/68.? No clinical angina was noted. MYOCARDIAL PERFUSION PROTOCOL: 11.2 mCi of sestamibi was injected at rest.? 0.4 mg of regadenoson was infused per usual protocol.? At peak infusion, 32.7 mCi of sestamibi was injected.? Stress images were obtained.? Stress and rest images were reconstructed and compared in the short axes, vertical long and horizontal long axes.? Gated images were also obtained. PERFUSION SPECT ANALYSIS: Review of the images demonstrated reduced perfusion noted in the mid anterior wall, apex and the inferoapical wall.? The mid septum also has reduced perfusion.? This appears to be present on the stress and rest images to a similar extent.? The above changes are likely secondary to left bundle-branch block pattern and/or a previous infarct.? , however, is unlikely. GATED SPECT ANALYSIS: The gated ejection fraction is noted to be 57% with septal hypokinesis present. CONCLUSION: 1.? Pharmacologic myocardial perfusion stress test with evidence of left bundle- branch block. 2.? Anteroseptal perfusion defect noted, likely secondary to a left bundle- branch block abnormality or previous infarct. 3.? No ischemia noted. Radiography Diagnostic Testing: Radiology Impression Echocardiogram 10/29/21 16:48 Interpretation Summary The study was technically difficult. Mildly dilated left ventricle. Moderate global left ventricular systolic dysfunction. The estimated ejection fraction is 30 %. The left atrium is moderately enlarged. The right atrium is moderately enlarged. There is mild mitral annular calcification. Mild focal mitral valve calcification of the anterior leaflet. The mitral valve chordae are thickened and/or calcified. Moderate (2+) mitral valve insufficiency. Ebsteins anomaly of the tricuspid valve. Moderate (2+) tricuspid valve insufficiency. Mild focal aortic valve calcification. Echolucency c/w a pleural effusion. Right ventricular systolic pressure estimated to be 41 mmHg. Unable to assess diastolic dysfunction. Ordering Physician: Mino Saldana Referring Physician: MD Ronda Alexys Performed By: Bret Douglass RCS
[2021-10-30] MEDS: Aspirin 81 MG TAB.CHEW PO (21:33)
[2021-10-31] VITALS (21 sets, daily range): BP systolic 105–134; BP diastolic 53–81; PULSE 70–112; RESP 16–19; TEMP 36.4–36.9; O2SAT 87–97
--- NOTE | 2021-10-31 03:11 | NURSING ---
SPO2 87% on 3L. Education on deep breathing provided. Oxygen increased to 4L and oxygen saturations maintained at 93%.
--- NOTE | 2021-10-31 05:00 | EKG12_ITS ---
Test Reason : AM EKG Blood Pressure : / mmHG Vent. Rate : 102 BPM Atrial Rate : 108 BPM P-R Int : 000 ms QRS Dur : 156 ms QT Int : 406 ms P-R-T Axes : 000 040 158 degrees QTc Int : 529 ms Atrial fibrillation Left bundle branch block Abnormal ECG Confirmed by JONNIE LARSEN, JINA ([id number]), slot editor DAMARIS RAINES ([id number]) on 11/01/2021 9:13:36 AM Referred By: Confirmed By:JINA CRISTINA MD
[2021-10-31 08:08] LABS: Anion Gap 10 (5-15); BUN 24 mg/dL (7-18); BUN/Creat Ratio 22.9 RATIO (10-20); Calcium,Total 8.4 mg/dL (8.5-10.1); Chloride 91 mmol/L (98-107); Cholesterol 149 mg/dL (200); Creatinine, Serum 1.05 mg/dL (0.55-1.02); EST Glomerular Filtration Rate 53 mL/min (>60); Est Glom Filt Rate - Afr Amer 64 mL/min (>60); Estimated Creatinine Clearance 33.21 ml/min; Glucose 102 mg/dL (74-106); High Density Lipoprotein 54 mg/dL; Magnesium 2.1 mg/dL (1.6-2.6); Potassium 3.9 mmol/L (3.5-5.1); Sodium Level 122 mmol/L (136-145); Triglycerides 97 mg/dL; Very Low Density Lipoprotein 19 mg/dL (5-40)
[2021-10-31] MEDS: Aspirin 81 MG TAB.CHEW PO (08:19)
[2021-10-31] MEDS: Metoprolol Tartrate 50 MG Tablet PO (08:19)
[2021-10-31] MEDS: Potassium Chloride Oral Tablet 20 MEQ 40 MEQ PO ×2 (08:19→17:13)
--- NOTE | 2021-10-31 08:34 | PN.CARD_ITS ---
Subjective Subjective The patient is awake and alert. She has been resting supine. She believes her shortness of breath and her wheezing are better. Objective Data Vital Signs: Vital Signs Temp Pulse Resp BP Pulse Ox O2 Del Method O2 Flow Rate 98.0 F 112 H 18 134/68 H 94 Nasal Cannula 4 10/31/21 08:15 10/31/21 08:19 10/31/21 08:15 10/31/21 08:19 10/31/21 08:15 10/31/21 08:15 10/31/21 08:15 Oxygen Flow Rate (L/min) 4 Oxygen Delivery Method Nasal Cannula Weight: 163 lb 9.6 oz Body Mass Index (BMI) 28.1 Intake & Output: Intake and Output for Last 24 Hours 10/29/21 10/30/21 10/31/21 23:59 23:59 23:59 Intake Total 120 / 120 360 / 360 400 / 400 Output Total 600 / 600 700 / 700 900 / 900 Balance -480 / -480 -340 / -340 -500 / -500 Lab / Micro Data Result Diagrams: 10/29/21 13:30 10/31/21 06:48 Labs: Laboratory Results - last 24 hr 10/31/21 06:48: Sodium 122 L, Potassium 3.9, Chloride 91 L, Carbon Dioxide 21.0, Anion Gap 10, BUN 24 H, Creatinine 1.05 H, Estim Creat Clear Calc 33.21, Est GFR (MDRD) Af Amer 64, Est GFR (MDRD) Non-Af 53 L, BUN/Creatinine Ratio 22.9 H, Glucose 102, Calcium 8.4 L, Magnesium 2.1, Triglycerides 97, Cholesterol 149, LDL Cholesterol 76, VLDL Cholesterol 19, HDL Cholesterol 54 Cardiology Labs/Tests 10/31/21 06:48: Sodium 122 L, Potassium 3.9, Chloride 91 L, Carbon Dioxide 21.0, Anion Gap 10, BUN 24 H, Creatinine 1.05 H, Est GFR (MDRD) Af Amer 64, Est GFR (MDRD) Non-Af 53 L, BUN/Creatinine Ratio 22.9 H, Glucose 102, Calcium 8.4 L, Magnesium 2.1, Triglycerides 97, Cholesterol 149, LDL Cholesterol 76, VLDL Cholesterol 19, HDL Cholesterol 54 Rhythm: Atrial fibrillation/flutter EKG: Atrial fibrillation/flutter; left bundle branch block Radiography Diagnostic Testing: Radiology Impression Echocardiogram 10/29/21 16:48 Interpretation Summary The study was technically difficult. Mildly dilated left ventricle. Moderate global left ventricular systolic dysfunction. The estimated ejection fraction is 30 %. The left atrium is moderately enlarged. The right atrium is moderately enlarged. There is mild mitral annular calcification. Mild focal mitral valve calcification of the anterior leaflet. The mitral valve chordae are thickened and/or calcified. Moderate (2+) mitral valve insufficiency. Ebsteins anomaly of the tricuspid valve. Moderate (2+) tricuspid valve insufficiency. Mild focal aortic valve calcification. Echolucency c/w a pleural effusion. Right ventricular systolic pressure estimated to be 41 mmHg. Unable to assess diastolic dysfunction. Ordering Physician: Mino Saldana Referring Physician: MD Ronda Alexys Performed By: Bret Douglass RCS Physical Exam Narrative This is an 86-year-old hard of hearing white female who appears to be resting reasonably comfortably at the moment and in no acute distress. Const alert, oriented x3 and no apparent distress Orientation / Consciousness: awake HEENT normocephalic and head/scalp atraumatic Eyes PERRL, EOMs intact bilaterally, conjunctivae normal and no scleral icterus Neck full ROM, supple and no JVD Resp Auscultation: wheezes scattered wheezes and diminished lung sounds bilateral lower Cardio Rhythm: abnormal rhythm irregularly irregular Heart Sounds: S1 normal and S2 normal GI normal to inspection, nondistended, normoactive bowel sounds Extremity General Extremity: edema bilateral lower extremity Details: mild Skin no rashes or lesions noted Psych mental status grossly normal Assessment & Plan Assessment/Plan (1) Atrial fibrillation: QUALIFIERS: Atrial fibrillation type: unspecified Qualified Code(s): I48.91 - Unspecified atrial fibrillation PLAN: The patient appears to have atrial fibrillation. The etiology may be multifactorial secondary to combination of her age, hypertension, and underlying cardiovascular/pulmonary disease. The duration of atrial fibrillation is unknown at this time. She we will continue to be monitored. She will continue rate control therapy as deemed appropriate. She will continue anticoagulant therapy as deemed appropriate. (2) CHF (congestive heart failure): QUALIFIERS: Heart failure type: unspecified Heart failure chronicity: acute Qualified Code(s): I50.9 - Heart failure, unspecified PLAN: The patient appears to have findings compatible with CHF. Based upon her objective studies this appears to be CHF with reduced ejection fraction. At the moment she is being monitored. She is continuing medical management which has included IV diuretics. Over time additional agents such as beta-blockers, afterload reducing agents, etc. can be adjusted. She is already undergone evaluation with a transthoracic echocardiogram. As previously noted a discussion was held with her with respect to further evaluation of her cardiovascular status with diagnostic cardiac catheterization to determine whether or not she has any CAD that would be contributing to her clinical course requiring additional evaluation and care. The procedure and risks had been discussed with her and she was agreeable to this approach. (3) Pleural effusion: PLAN: She does have pleural effusions which appear to be related to her CHF. She will continue medical management with diuresis. (4) Cardiomyopathy: PLAN: Again its unclear as to whether her cardiomyopathy is a non-CAD related cardiomyopathy and whether there is any relationship to her atrial fibrillation versus being related to CAD that is yet to be identified. At the moment she will continue medical management. Again it would be reasonable to evaluate her for the possibility of CAD with a diagnostic cardiac catheterization. (5) Acute hyponatremia: PLAN: She was noted to have hyponatremia. This may be secondary to her CHF. Her electrolytes will need to be followed while she undergoes evaluation and care. (6) Hyperlipidemia: PLAN: She has a reported history of hyperlipidemia. She will continue evaluation and care as deemed appropriate. (7) Hypertension: PLAN: She has a history of hypertension. She will need to continue medical management as deemed appropriate. Addt'l Comments Overall, the patient does appear to be somewhat improved from a respiratory standpoint this morning. She will continue medical therapy. Recommendation has been made for further evaluation with diagnostic cardiac catheterization. As noted above the procedure and risk were discussed with her and she was agreeable to this approach. The patient's case has also been discussed and reviewed with her son who is pr esent at this time. He states he has an understanding of this as he has undergone diagnostic cardiac catheterization, PCI, and CABG himself in the past. He agrees with proceeding with such evaluation for his mother at this time. This note was generated using a voice recognition system and there may be incorrect words, spelling or punctuation that were not noted when reviewing the office note prior to saving. Procedure Criteria Type of Procedure Procedure Type: Elective Elective Risks - COVID COVID Risk Discussion: The surgeon/proceduralist and patient have discussed in detail the risk of exposure to and/or potential harm posed by the COVID-19 virus with having a surgery/procedure at this time versus the risk of delaying the surgery/procedure. It is not possible to know either the risk of delaying the surgery or procedure or chance of getting an infection with perfect accuracy, but a joint decision was made between the patient and the surgeon/proceduralist to proceed at this time with the scheduled surgery/procedure as indicated on the consent form.
--- NOTE | 2021-10-31 08:41 | PN.HOSP_ITS ---
Subjective Subjective Feels okay. Still short of breath with exertion just feels weak overall. Objective Data Objective Data Vital Signs: Vital Signs Temp Pulse Resp BP Pulse Ox O2 Del Method O2 Flow Rate 36.7 C 112 H 18 134/68 H 94 Nasal Cannula 4 10/31/21 08:15 10/31/21 08:19 10/31/21 08:15 10/31/21 08:19 10/31/21 08:15 10/31/21 08:15 10/31/21 08:15 Oxygen Flow Rate (L/min) 4 Oxygen Delivery Method Nasal Cannula Weight: 74.208 kg Body Mass Index (BMI) 28.1 Intake & Output: Intake and Output for Last 24 Hours 10/29/21 10/30/21 10/31/21 23:59 23:59 23:59 Intake Total 120 / 120 360 / 360 400 / 400 Output Total 600 / 600 700 / 700 900 / 900 Balance -480 / -480 -340 / -340 -500 / -500 Lab / Micro Data Result Diagrams: 10/29/21 13:30 10/31/21 06:48 Labs: Laboratory Results - last 24 hr 10/31/21 06:48: Sodium 122 L, Potassium 3.9, Chloride 91 L, Carbon Dioxide 21.0, Anion Gap 10, BUN 24 H, Creatinine 1.05 H, Estim Creat Clear Calc 33.21, Est GFR (MDRD) Af Amer 64, Est GFR (MDRD) Non-Af 53 L, BUN/Creatinine Ratio 22.9 H, Glucose 102, Calcium 8.4 L, Magnesium 2.1, Triglycerides 97, Cholesterol 149, LDL Cholesterol 76, VLDL Cholesterol 19, HDL Cholesterol 54 Micro: Microbiology 10/29/21 13:45 Nasal Secretion SARS-CoV-2 & FLU Antigen (Rapid) - Final Radiography Diagnostic Testing: Radiology Impression Echocardiogram 10/29/21 16:48 Interpretation Summary The study was technically difficult. Mildly dilated left ventricle. Moderate global left ventricular systolic dysfunction. The estimated ejection fraction is 30 %. The left atrium is moderately enlarged. The right atrium is moderately enlarged. There is mild mitral annular calcification. Mild focal mitral valve calcification of the anterior leaflet. The mitral valve chordae are thickened and/or calcified. Moderate (2+) mitral valve insufficiency. Ebsteins anomaly of the tricuspid valve. Moderate (2+) tricuspid valve insufficiency. Mild focal aortic valve calcification. Echolucency c/w a pleural effusion. Right ventricular systolic pressure estimated to be 41 mmHg. Unable to assess diastolic dysfunction. Ordering Physician: Mino Saldana Referring Physician: MD Ronda Alexys Performed By: Bret Douglass RCS Physical Exam Const alert and no apparent distress Resp normal respiratory effort and no retractions Resp Narrative: Bibasilar crackles Cardio regular rate, regular rhythm, S1 normal heart sound and S2 normal heart sound GI normal to inspection, nondistended, normoactive bowel sounds, soft to palpation, non-tender and non-distended Extremity normal to inspection Psych affect normal Assessment & Plan Assessment/Plan (1) CHF (congestive heart failure): QUALIFIERS: Heart failure chronicity: acute Heart failure type: unspecified Qualified Code(s): I50.9 - Heart failure, unspecified (2) Acute hyponatremia: (3) Acute hypoxemic respiratory failure: (4) Pleural effusion: (5) Atrial fibrillation: QUALIFIERS: Atrial fibrillation type: unspecified Qualified Code(s): I48.91 - Unspecified atrial fibrillation PLAN: Plan 1. Acute heart failure with reduced ejection fraction Plan: * IV furosemide * 2D echo shows an EF of 30%. Left atrium is moderately enlarged. Right atrium moderately enlarged. Right ventricular systolic pressure 41 mmHg. * Cardiology input appreciated. * Left heart catheterization performed 10/31 and showed nonobstructive coronary disease * Started on carvedilol as well as sacubitril/valsartan 2. Atrial fibrillation Unclear how long its been going on [id number] score of 5 Plan: * Metoprolol tartrate * Changed to apixaban 3. Hyponatremia ongoing Suspect due to HCTZ and CHF, but cannot rule out SIADH Plan: * Continue to hold HCTZ and monitor * Check urine studies 4. Pleural effusions Secondary to CHF Treat as above No plan for thoracentesis at this time 5. VTE prophylaxis: Not indicated as patient is anticoagulated 6. CODE STATUS: Addressed with patient. Patient was to be full code. 7. Debility: PT OT evaluate and treat. Charges/Coding Visit Charges Inpatient E&M: 81958 Subs Hosp L2
[2021-10-31 10:25] LABS: Osmolality, Serum 257 mOsm/KG (280-301)
--- NOTE | 2021-10-31 10:56 | CL.D_ITS ---
Patient Name: DELORES MONTOYA Study Date: 10/31/2021 Performing: Issa Oglesby MD Ht: 64 inches 163 cm : 1935 Wt: 163.4 lbs 74 kg Age: 86 Gender: female BSA: 1.8 PROCEDURE(S) PERFORMED [id number])LHC/COR/LV CLINICAL PROFILE AND INDICATIONS Indications: LV Dysfunction, Cardiomyopathy Heart Failure: NYHA Class: 3, Newly Diagnosed: Yes, Heart Failure Type: Systolic Stress/Imaging Stress/Image Study Performed: No Angina Classification Anginal Classification w/in 2 Weeks: Anginal Equivalent Dyspnea CAD Presentations: Other: shortness of breath CONCLUSIONS Normal Left Ventricular End Diastolic Pressure Global LV systolic dysfunction- Moderate LVEF: by LV gram 30 % [place] Multivessel CAD (non obstructive) Comment: Fluoroscopic findings and angiographic findings compatible with atherosclerosis/calcificatio n of the thoracic aorta and calcification of the iliac/femoral arterial system bilaterally. RECOMMENDATIONS Risk factor modification Medical therapy Consider future PVS evaluation for concerns of PAD invloving the iliac/femoral arterial system DESCRIPTION OF PROCEDURE The patient arrived to the procedure lab. The risks and benefits of the procedure as well as a full d escription of our services here and current unavailability of surgical backup were fully explained to the patient and/or their significant other prior to the catheterization. The Timeout was completed, verifying the correct patient and procedure. The patient's procedural site was prepped and draped in the usual fashion. Local anesthetic was given subcutaneously to right groin region with Lidocaine 2%. Local anesthetic was given subcutaneously to right radial region with Lidocaine 2%. Using a modified Seldinger technique, arterial access was obtained via the right femoral artery, a 4Fr sheath was ins erted, arterial access was obtained via the right radial artery, a 6Fr sheath was inserted. Left Cor onary Artery selective angiography was performed in multiple views using a 5 Fr. 4.0 [place] catheter. Right Coronary Artery selective angiography was then performed in multiple views using a 5 Fr. 4.0 [place] catheter. Left Ventriculography was performed in MCALLISTER projection using a 5 Fr. Pigtail c atheter. LV to AO pullback pressures were then recorded.The arterial sheath was pulled and a TR Band was applied for hemostasis. 10cc air inserted. CORONARY ANGIOGRAPHY DOMINANCE: Left Dominant LEFT HEART ASSESSMENT Left Ventricular Ejection Fraction: by LV Gram 30 % Global Hypokinesis - Moderate Normal Left Ventricular End Diastolic Pressure LVEDP: 9 mmHg LEFT MAIN: Moderate calcification LEFT ANTERIOR DESCENDING ARTERY: PROX LAD: Moderate calcification, Mild luminal irregularities CIRCUMFLEX ARTERY: OSTIAL CIRC: 25 % Stenosis PROX CIRC: Mild luminal irregularities RAMUS: Mild luminal irregularities RIGHT CORONARY ARTERY: Angiographically normal AORTIC ROOT: Atherosclerotic Calcified COMPLICATIONS No Complications PROCEDURE MEDICATIONS Versed 0.5 mg IV Versed 0.5 mg IV Oxygen: 4 L/min via nasal cannula Heparin given IA 10/31/2021 10:11:59 Verapamil 2.5mg, Ntg 100mcgs, 3000 units of Heparin given IA 10/31/2021 10:11:59 SUMMARY OF HEMODYNAMIC DATA Time AIR REST ECG 08:36:29 AO 97/46 (68) SA 10:16:05 LV 101/0, 12 10:21:56 LV 99/0, 9 10:22:02 LV 85/2, 12 10:22:57 LV 87/-1, 8 10:23:03 LVp 84/-1, 13 10:23:08 AOp 96/37 (57) 10:23:13 Signed By Issa Oglesby MD On 10/31/2021 10:55:12 AM Issa Oglesby MD
[2021-10-31] MEDS: 0.9% Normal Saline 1,000 ML 50 ML IV (11:05)
[2021-10-31] MEDS: Carvedilol 6.25 MG Tablet PO ×2 (11:32→17:13)
[2021-10-31] MEDS: Furosemide 40 MG/4 ML Vial 80 MG IV ×2 (11:32→17:13)
[2021-10-31] MEDS: Cholecalciferol (VIT D3) 25 MCG TABLET (1,000 UNITS) PO (11:33)
[2021-10-31] MEDS: 0.9% Saline Lock 10 ML Syringe IV ×2 (11:38→17:20)
[2021-10-31 12:51] LABS: Urine Sodium 28 mmol/L (Not Establ.)
[2021-10-31 13:01] LABS: Osmolality, Urine 415 mOsm/KG
[2021-10-31] MEDS: Docusate Sodium 100 MG Capsule PO (13:27)
--- NOTE | 2021-10-31 13:58 | CHAPLAIN ---
Type of Pastoral Visit _x__ Initial Visit ___ Follow-up Visit ___ On-call Visit ___ General Patient Visit ___ Spiritual Assessment ___ Family Conference ___ Bereavement ___ Rapid Response ___ Code Blue ___ Other (describe below) Pastoral Care Referral From _x__ Patient ___ Family ___ Nurse ___ Physician ___ Electronic Device Repairer ___ Forensic Specialist ___ Other (describe below) Sacrament/Intervention _x__ Active listening ___ Anointing ___ Samaritan ___ Bereavement ___ Communion ___ Zoe exploration ___ ___ Life review ___ Prayer ___ Reconciliation ___ Sacrament of Sick _x__ Supportive presence ___ Wedding ___ Other (describe below) Pastoral Comments patient was sleeping but son was in the room and invited this cellophane worker to stay and talk; son explains situation and changes for pt that are hard for her to accept; pt wakes up and speaks briefly; pt states she doesn't need anything; offer of ongoing support made as desired;
[2021-10-31] MEDS: Atorvastatin Calcium 20 MG Tablet PO (22:41)
[2021-10-31] MEDS: APIXABAN 2.5 MG TABLET PO (22:41)
[2021-10-31] MEDS: SACUBITRIL/VALSARTAN 24/26 MG TABLET 1 EACH PO (22:47)
[2021-11-01] VITALS (11 sets, daily range): BP systolic 96–110; BP diastolic 41–64; PULSE 74–94; RESP 18; TEMP 36.5–36.9; O2SAT 95–98
[2021-11-01] MEDS: 0.9% Saline Lock 10 ML Syringe IV ×2 (06:24→08:35)
[2021-11-01] MEDS: Carvedilol 6.25 MG Tablet PO ×2 (06:24→16:31)
[2021-11-01 07:00] LABS: Absolute Lymphocyte Count 1.92 X10^3/uL (0.83-4.51); Absolute Neutrophil Count 9.5 X10^3/uL (2.0-7.7); Basophil# 0.05 X10^3/uL; Basophil% 0.4 % (0-1); Eosinophil# 0.08 X10^3/uL; Eosinophils% 0.6 % (0-5); Hematocrit 32.1 % (37-47); Hemoglobin 11.3 g/dL (12.0-15.0); Lymphocyte # 1.92 X10^3/ul (0.83-4.51); Lymphocyte % 14.8 % (19-41); Mean Corp Hgb Conc 35.2 g/dL (32-36); Mean Corpuscular Hgb 29.8 pg (27.0-32.0); Mean Corpuscular Volume 84.7 fL (81-99); Monocyte# 1.36 X10^3/uL; Monocyte% 10.5 % (0-10); NRBC Flagged by Analyzer 0 % (0-5); Neutrophil # 9.46 X10^3/uL (2.7-7.7); Neutrophil % 73.2 % (47-70); Platelet Count 287 K/mm3 (150-450); RBC Distribution Width CV 12.8 % (11.6-14.6); RBC Distribution Width SD 39.1 fl (35.1-43.9); Red Blood Count 3.79 M/mm3 (4.2-5.4); White Blood Count 12.9 K/mm3 (4.4-11.0)
[2021-11-01 07:34] LABS: Anion Gap 9 (5-15); BUN 23 mg/dL (7-18); Calcium,Total 8.2 mg/dL (8.5-10.1); Chloride 93 mmol/L (98-107); EST Glomerular Filtration Rate 56 mL/min (>60); Est Glom Filt Rate - Afr Amer 68 mL/min (>60); Estimated Creatinine Clearance 34.87 ml/min; Glucose 108 mg/dL (74-106); Sodium Level 127 mmol/L (136-145)
--- NOTE | 2021-11-01 08:25 | PN.HOSP_ITS ---
Subjective Subjective Breathing better. Decreased to 4l/m Objective Data Objective Data Vital Signs: Vital Signs Temp Pulse Resp BP Pulse Ox O2 Del Method O2 Flow Rate 36.6 C 74 18 106/48 L 98 Nasal Cannula 4 11/01/21 08:11 11/01/21 08:11 11/01/21 08:11 11/01/21 08:11 11/01/21 08:11 11/01/21 08:19 11/01/21 08:19 Oxygen Flow Rate (L/min) 4 Oxygen Delivery Method Nasal Cannula Weight: 73.1 kg Body Mass Index (BMI) 28.1 Intake & Output: Intake and Output for Last 24 Hours 10/30/21 10/31/21 11/01/21 23:59 23:59 23:59 Intake Total 360 / 360 1180.83 / 1180.83 Output Total 700 / 700 1825 / 1825 500 / 500 Balance -340 / -340 -644.17 / -644.17 -500 / -500 Lab / Micro Data Result Diagrams: 11/01/21 06:32 11/01/21 06:32 Labs: Laboratory Results - last 24 hr 10/31/21 06:48: Serum Osmolality 257 L 10/31/21 12:27: Ur Random Sodium 28 10/31/21 12:27: Urine Osmolality 415 11/01/21 06:32: Sodium 127 L, Potassium 4.0, Chloride 93 L, Carbon Dioxide 25.0, Anion Gap 9, BUN 23 H, Creatinine 1.00, Estim Creat Clear Calc 34.87, Est GFR (MDRD) Af Amer 68, Est GFR (MDRD) Non-Af 56 L, BUN/Creatinine Ratio 23.0 H, Glucose 108 H, Calcium 8.2 L 11/01/21 06:32: WBC 12.9 H, RBC 3.79 L, Hgb 11.3 L, Hct 32.1 L, MCV 84.7, MCH 29.8, MCHC 35.2, RDW Std Deviation 39.1, RDW Coeff of Nam 12.8, Plt Count 287, MPV 10.0, Immature Gran % (Auto) 0.500, Neut % (Auto) 73.2 H, Lymph % (Auto) 14.8 L, [place] % (Auto) 10.5 H, Eos % (Auto) 0.6, Baso % (Auto) 0.4, Absolute Neuts (auto) 9.5 H, Absolute Lymphs (auto) 1.92, Nucleated RBC % 0 Micro: Microbiology 10/29/21 13:43 Blood Culture (Wb) - Anticubital Right Blood Culture - Preliminary No growth in 48 hours. 10/29/21 13:30 Blood Culture (Wb) - Anticubital Left Blood Culture - Preliminary No growth in 48 hours. 10/29/21 13:45 Nasal Secretion SARS-CoV-2 & FLU Antigen (Rapid) - Final Physical Exam Const alert and no apparent distress Resp normal respiratory effort, no retractions, no use of accessory muscles and clear to auscultation bilaterally Cardio regular rate, regular rhythm, S1 normal heart sound and S2 normal heart sound GI normal to inspection, nondistended, normoactive bowel sounds and soft to palpation Psych affect normal Assessment & Plan Assessment/Plan (1) CHF (congestive heart failure): QUALIFIERS: Heart failure chronicity: acute Heart failure type: unspecified Qualified Code(s): I50.9 - Heart failure, unspecified (2) Acute hyponatremia: (3) Acute hypoxemic respiratory failure: (4) Pleural effusion: (5) Atrial fibrillation: QUALIFIERS: Atrial fibrillation type: unspecified Qualified Code(s): I48.91 - Unspecified atrial fibrillation PLAN: Plan 1. Acute heart failure with reduced ejection fraction Plan: * IV furosemide * 2D echo shows an EF of 30%. Left atrium is moderately enlarged. Right atrium moderately enlarged. Right ventricular systolic pressure 41 mmHg. * Cardiology input appreciated. * Left heart catheterization performed 10/31 and showed nonobstructive coronary disease * Started on carvedilol as well as sacubitril/valsartan 2. Atrial fibrillation Unclear how long its been going on [id number] score of 5 Plan: * Metoprolol tartrate * Changed to apixaban 3. Hyponatremia improved Suspect due to HCTZ and CHF, but cannot rule out SIADH Plan: * Continue to hold HCTZ and monitor * Serum osm 257, TSH WNL, Ur Osm 28 4. Pleural effusions Secondary to CHF Treat as above No plan for thoracentesis at this time 5. VTE prophylaxis: Not indicated as patient is anticoagulated 6. CODE STATUS: Addressed with patient. Patient was to be full code. 7. Debility: PT OT evaluate and treat. Charges/Coding Visit Charges Inpatient E&M: 57571 Subs Hosp L2
[2021-11-01] MEDS: Potassium Chloride Oral Tablet 20 MEQ 40 MEQ PO ×2 (08:26→16:32)
[2021-11-01] MEDS: Furosemide 40 MG/4 ML Vial 80 MG IV ×2 (08:26→16:32)
[2021-11-01] MEDS: Aspirin 81 MG TAB.CHEW PO (08:27)
[2021-11-01] MEDS: APIXABAN 2.5 MG TABLET PO ×2 (08:27→21:18)
[2021-11-01] MEDS: Cholecalciferol (VIT D3) 25 MCG TABLET (1,000 UNITS) PO (08:28)
[2021-11-01] MEDS: SACUBITRIL/VALSARTAN 24/26 MG TABLET 1 EACH PO ×2 (08:28→21:18)
--- NOTE | 2021-11-01 09:02 | PN.CARD_ITS ---
Subjective Subjective The patient appears to be resting reasonably comfortably in bed. She believes her breathing has improved overall. Objective Data Vital Signs: Vital Signs Temp Pulse Resp BP Pulse Ox O2 Del Method O2 Flow Rate 97.9 F 74 18 106/48 L 98 Nasal Cannula 4 11/01/21 08:11 11/01/21 08:11 11/01/21 08:11 11/01/21 08:11 11/01/21 08:11 11/01/21 08:19 11/01/21 08:19 Oxygen Flow Rate (L/min) 4 Oxygen Delivery Method Nasal Cannula Weight: 161 lb 2.526 oz Body Mass Index (BMI) 28.1 Intake & Output: Intake and Output for Last 24 Hours 10/30/21 10/31/21 11/01/21 23:59 23:59 23:59 Intake Total 360 / 360 1180.83 / 1180.83 Output Total 700 / 700 1825 / 1825 500 / 500 Balance -340 / -340 -644.17 / -644.17 -500 / -500 Lab / Micro Data Result Diagrams: 11/01/21 06:32 11/01/21 06:32 Labs: Laboratory Results - last 24 hr 10/31/21 06:48: Serum Osmolality 257 L 10/31/21 12:27: Ur Random Sodium 28 10/31/21 12:27: Urine Osmolality 415 11/01/21 06:32: Sodium 127 L, Potassium 4.0, Chloride 93 L, Carbon Dioxide 25.0, Anion Gap 9, BUN 23 H, Creatinine 1.00, Estim Creat Clear Calc 34.87, Est GFR (MDRD) Af Amer 68, Est GFR (MDRD) Non-Af 56 L, BUN/Creatinine Ratio 23.0 H, Glucose 108 H, Calcium 8.2 L 11/01/21 06:32: WBC 12.9 H, RBC 3.79 L, Hgb 11.3 L, Hct 32.1 L, MCV 84.7, MCH 29.8, MCHC 35.2, RDW Std Deviation 39.1, RDW Coeff of Nam 12.8, Plt Count 287, MPV 10.0, Immature Gran % (Auto) 0.500, Neut % (Auto) 73.2 H, Lymph % (Auto) 14.8 L, [place] % (Auto) 10.5 H, Eos % (Auto) 0.6, Baso % (Auto) 0.4, Absolute Neuts (auto) 9.5 H, Absolute Lymphs (auto) 1.92, Nucleated RBC % 0 Micro: Microbiology 10/29/21 13:43 Blood Culture (Wb) - Anticubital Right Blood Culture - Preliminary No growth in 48 hours. 10/29/21 13:30 Blood Culture (Wb) - Anticubital Left Blood Culture - Preliminary No growth in 48 hours. Cardiology Labs/Tests 10/31/21 06:48: Serum Osmolality 257 L 11/01/21 06:32: Sodium 127 L, Potassium 4.0, Chloride 93 L, Carbon Dioxide 25.0, Anion Gap 9, BUN 23 H, Creatinine 1.00, Est GFR (MDRD) Af Amer 68, Est GFR (MDRD) Non-Af 56 L, BUN/Creatinine Ratio 23.0 H, Glucose 108 H, Calcium 8.2 L 11/01/21 06:32: WBC 12.9 H, RBC 3.79 L, Hgb 11.3 L, Hct 32.1 L, MCV 84.7, MCH 29.8, MCHC 35.2, Plt Count 287, MPV 10.0, Immature Gran % (Auto) 0.500, Neut % (Auto) 73.2 H, Lymph % (Auto) 14.8 L, [place] % (Auto) 10.5 H, Eos % (Auto) 0.6, Baso % (Auto) 0.4, Absolute Neuts (auto) 9.5 H, Nucleated RBC % 0 Rhythm: Atrial fibrillation Physical Exam Narrative This is an 86-year-old hard of hearing white female who appears to be resting reasonably comfortably at the moment and in no acute distress. Const alert, oriented x3 and no apparent distress Orientation / Consciousness: awake HEENT normocephalic and head/scalp atraumatic Eyes PERRL, EOMs intact bilaterally, conjunctivae normal and no scleral icterus Neck full ROM, supple and no JVD Resp Auscultation: wheezes scattered wheezes and diminished lung sounds bilateral lower Cardio Rhythm: abnormal rhythm irregularly irregular Heart Sounds: S1 normal and S2 normal GI normal to inspection, nondistended, normoactive bowel sounds Extremity General Extremity: edema bilateral lower extremity Details: mild Skin no rashes or lesions noted Psych mental status grossly normal Assessment & Plan Assessment/Plan (1) Atrial fibrillation: QUALIFIERS: Atrial fibrillation type: unspecified Qualified Code(s): I48.91 - Unspecified atrial fibrillation PLAN: The patient appears to have atrial fibrillation. The etiology may be multifactorial secondary to combination of her age, hypertension, and underlying cardiovascular/pulmonary disease. The duration of atrial fibrillation is unknown at this time. She we will continue to be monitored. She will continue rate control therapy as deemed appropriate. She will continue anticoagulant therapy as deemed appropriate. (2) CHF (congestive heart failure): QUALIFIERS: Heart failure type: unspecified Heart failure chronicity: acute Qualified Code(s): I50.9 - Heart failure, unspecified PLAN: The patient appears to have findings compatible with CHF. Based upon her objective studies this appears to be CHF with reduced ejection fraction. At the moment she is being monitored. She is continuing medical management which has included IV diuretics. Over time additional agents such as beta-blockers, afterload reducing agents, etc. can be adjusted. She is already undergone evaluation with a transthoracic echocardiogram. She has undergone evaluation with a diagnostic cardiac catheterization. It did not appear she had angiographically significant CAD to explain her left ventricular systolic dysfunction. 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 She will need to continue medical management. (3) Pleural effusion: PLAN: She does have pleural effusions which appear to be related to her CHF. She will continue medical management with diuresis. (4) Cardiomyopathy: PLAN: Based upon her previous evaluation it appears that she has a non-CAD related cardiomyopathy. At the moment she will continue medical management. Her medications will be advanced as tolerated. (5) Acute hyponatremia: PLAN: She was noted to have hyponatremia. This may be secondary to her CHF. Her electrolytes will need to be followed while she undergoes evaluation and care. (6) Hyperlipidemia: PLAN: She has a reported history of hyperlipidemia. She will continue evaluation and care as deemed appropriate. (7) Hypertension: PLAN: She has a history of hypertension. She will need to continue medical management as deemed appropriate. (8) PAD (peripheral artery disease): PLAN: Of note, it appears based upon her evaluation in the cardiac catheterization laboratory that she has peripheral arterial disease involving her iliac/femoral artery system. This can be evaluated over time as she is treated for her underlying acute cardiovascular related issues in the interim. Addt'l Comments Overall, she will need to continue medical therapy. At the moment this includes adjustment of medicine such as beta-blockers, continuation of her IV diuretics to hopefully improve her volume status, adjustment of afterload reducing agents, and based upon her atrial dysrhythmia anticoagulant therapy. Hopefully in the future, when she is improved from her underlying CHF related event and she has been adequately anticoagulated for period of time she could be considered for an attempt at regaining sinus rhythm with synchronized biphasic DC cardioversion. Also, over time, if her underlying LV systolic function/EF does not improve she will need to be considered as to whether or not at her age she is a candidate for ICD therapy which based upon her left bundle branch block would include bive ntricular ICD/CLEAN UP PERSON therapy. The patient denies symptoms considered classic for angina pectoris, CHF / pulmonary edema (with respect to orthopnea / PND), ongoing palpitations, or near syncope / syncope. Procedure Criteria Type of Procedure Procedure Type: Elective Elective Risks - COVID COVID Risk Discussion: The surgeon/proceduralist and patient have discussed in detail the risk of exposure to and/or potential harm posed by the COVID-19 virus with having a s urgery/procedure at this time versus the risk of delaying the surgery/procedure. It is not possible to know either the risk of delaying the surgery or procedure or chance of getting an infection with perfect accuracy, but a joint decision was made between the patient and the surgeon/proceduralist to proceed at this time with the scheduled surgery/procedure as indicated on the consent form.
--- NOTE | 2021-11-01 14:24 | CASEMGMT ---
Social Work Consult: senior living placement Referral source: Physical Therapy. This social studies department chair met with patient in room. Introduced self and social studies department chair role. Patient agreeable to speak with this social studies department chair. This social studies department chair broached conversation of [facility]. Patient is unsure about [facility] placement and would like to speak with family. This social studies department chair provided patient with list of In-network nursing facilities that are local to patient geographical region. Patient to look over list and talk with family tonight. PLAN: SNF vs. Home. Will continue to follow. Aileen GARIBAY, AVANI
[2021-11-01] MEDS: Docusate Sodium 100 MG Capsule PO (14:33)
[2021-11-01] MEDS: Atorvastatin Calcium 20 MG Tablet PO (21:18)
[2021-11-02] VITALS (14 sets, daily range): BP systolic 91–127; BP diastolic 44–62; PULSE 66–100; RESP 16–18; TEMP 36.3–37; O2SAT 93–97
[2021-11-02] MEDS: Carvedilol 6.25 MG Tablet PO (06:43)
[2021-11-02 07:43] LABS: Anion Gap 6 (5-15); BUN 21 mg/dL (7-18); BUN/Creat Ratio 21.3 RATIO (10-20); Calcium,Total 8.6 mg/dL (8.5-10.1); Chloride 97 mmol/L (98-107); Creatinine, Serum 0.99 mg/dL (0.55-1.02); EST Glomerular Filtration Rate 57 mL/min (>60); Est Glom Filt Rate - Afr Amer 69 mL/min (>60); Estimated Creatinine Clearance 35.22 ml/min; Glucose 101 mg/dL (74-106); Potassium 4.3 mmol/L (3.5-5.1); Sodium Level 129 mmol/L (136-145)
[2021-11-02] MEDS: Aspirin 81 MG TAB.CHEW PO (08:01)
[2021-11-02] MEDS: Potassium Chloride Oral Tablet 20 MEQ 40 MEQ PO ×2 (08:01→16:47)
--- NOTE | 2021-11-02 08:13 | PN.HOSP_ITS ---
Subjective Subjective breathing well. Tolerating room air. Objective Data Objective Data Vital Signs: Vital Signs Temp Pulse Resp BP Pulse Ox O2 Del Method O2 Flow Rate 37.0 C 97 16 127/50 H 97 Nasal Cannula 3 11/02/21 06:40 11/02/21 07:41 11/02/21 06:40 11/02/21 06:40 11/02/21 07:22 11/02/21 07:22 11/02/21 07:22 Oxygen Flow Rate (L/min) 3 Oxygen Delivery Method Nasal Cannula Weight: 72.8 kg Body Mass Index (BMI) 28.1 Intake & Output: Intake and Output for Last 24 Hours 10/31/21 11/01/21 11/02/21 23:59 23:59 23:59 Intake Total 1180.83 / 1180.83 Output Total 1825 / 1825 1850 / 1850 550 / 550 Balance -644.17 / -644.17 -1850 / -1850 -550 / -550 Lab / Micro Data Result Diagrams: 11/01/21 06:32 11/02/21 06:30 Labs: Laboratory Results - last 24 hr 11/02/21 06:30: Sodium 129 L, Potassium 4.3, Chloride 97 L, Carbon Dioxide 26.0, Anion Gap 6, BUN 21 H, Creatinine 0.99, Estim Creat Clear Calc 35.22, Est GFR (MDRD) Af Amer 69, Est GFR (MDRD) Non-Af 57 L, BUN/Creatinine Ratio 21.3 H, Glucose 101, Calcium 8.6 Micro: Microbiology 10/29/21 13:43 Blood Culture (Wb) - Anticubital Right Blood Culture - Preliminary No growth in 48 hours. 10/29/21 13:30 Blood Culture (Wb) - Anticubital Left Blood Culture - Preliminary No growth in 48 hours. 10/29/21 13:45 Nasal Secretion SARS-CoV-2 & FLU Antigen (Rapid) - Final Physical Exam Const alert and no apparent distress Resp normal respiratory effort, no retractions and no use of accessory muscles Cardio regular rate, regular rhythm, S1 normal heart sound and S2 normal heart sound GI normal to inspection, nondistended, normoactive bowel sounds, soft to palpation, non-tender and non-distended Assessment & Plan Assessment/Plan (1) CHF (congestive heart failure): QUALIFIERS: Heart failure chronicity: acute Heart failure type: unspecified Qualified Code(s): I50.9 - Heart failure, unspecified (2) Acute hyponatremia: (3) Acute hypoxemic respiratory failure: (4) Pleural effusion: (5) Atrial fibrillation: QUALIFIERS: Atrial fibrillation type: unspecified Qualified Code(s): I48.91 - Unspecified atrial fibrillation PLAN: Plan 1. Acute heart failure with reduced ejection fraction Plan: * 2D echo shows an EF of 30%. Left atrium is moderately enlarged. Right atrium moderately enlarged. Right ventricular systolic pressure 41 mmHg. * Cardiology input appreciated. * Left heart catheterization performed 10/31 and showed nonobstructive coronary disease * Started on carvedilol as well as sacubitril/valsartan * change furosemide to PO 2. Atrial fibrillation Unclear how long its been going on [id number] score of 5 Plan: * Metoprolol tartrate * Changed to apixaban 3. Hyponatremia improved Suspect due to HCTZ and CHF, but cannot rule out SIADH Plan: * Continue to hold HCTZ and monitor * Serum osm 257, TSH WNL, Ur Osm 28 4. Pleural effusions Secondary to CHF Treat as above No plan for thoracentesis at this time 5. PAD Difficulty with catheterization access FLP unremarkable Follow up vascular surgery 6. VTE prophylaxis: Not indicated as patient is anticoagulated 8. CODE STATUS: Addressed with patient. Patient was to be full code. 9. Debility: PT OT evaluate and treat. TCU on 11/03 DW pt's son. Charges/Coding Visit Charges Inpatient E&M: 81826 Subs Hosp L2
--- NOTE | 2021-11-02 08:46 | CASEMGMT ---
Addendum entered by Garima Velasco 11/02/21 10:04: Patient's son asked SW to call his , patient's daughter in law as she had some questions. SW called patient's daughter in law and answered her questions. Garima JENKINS Addendum entered by Garima Velasco 11/02/21 09:44: SW spoke with patient and her son once physician said patient is medically ready for discharge. Patient's son said he would like [facility] TCU. SW will await Kristy's return call. Garima JENKINS Original Note: SW was informed by RN that patient's son is at [facility] and would like to talk with SW about SNF placement. He was interested in [facility] and [facility] TCU. DYLAN met with patient and her son. Introduced self and role at [facility]. Patient's son said they would like [facility]. DYLAN had just spoken to Shabnam D/c strategic planning specialist and she had indicated [facility] does not have any beds until next week. SW let patient and her son know this information. They were thinking TCU, but they wanted to talk with patient's daughter in law as she is an RN and would have some input. SW told them to ask for SW when they have decided and/or SW will check back in with them. DYLAN did call Kristy in TCU and she will review patient. Garima JENKINS
--- NOTE | 2021-11-02 10:11 | PN.CARD_ITS ---
Subjective Subjective The patient has been up out of bed and ambulating with assistance with her walker. Overall she appears to be symptomatically improved based upon her general appearance as well as not noticing her overt wheezing when she has been up and moving compared to her past evaluations. Her son is with her today and believes she looks much better with respect to her respiratory status compared to when she was brought to the hospital. Objective Data Vital Signs: Vital Signs Temp Pulse Resp BP Pulse Ox O2 Del Method O2 Flow Rate 98.6 F 97 16 127/50 H 93 Room Air 3 11/02/21 06:40 11/02/21 07:41 11/02/21 08:25 11/02/21 06:40 11/02/21 08:25 11/02/21 08:25 11/02/21 07:22 Oxygen Flow Rate (L/min) 3 Oxygen Delivery Method Room Air Weight: 160 lb 7.944 oz Body Mass Index (BMI) 28.1 Intake & Output: Intake and Output for Last 24 Hours 10/31/21 11/01/21 11/02/21 23:59 23:59 23:59 Intake Total 1180.83 / 1180.83 Output Total 1825 / 1825 1850 / 1850 550 / 550 Balance -644.17 / -644.17 -1850 / -1850 -550 / -550 Lab / Micro Data Result Diagrams: 11/01/21 06:32 11/02/21 06:30 Labs: Laboratory Results - last 24 hr 11/02/21 06:30: Sodium 129 L, Potassium 4.3, Chloride 97 L, Carbon Dioxide 26.0, Anion Gap 6, BUN 21 H, Creatinine 0.99, Estim Creat Clear Calc 35.22, Est GFR (MDRD) Af Amer 69, Est GFR (MDRD) Non-Af 57 L, BUN/Creatinine Ratio 21.3 H, Glucose 101, Calcium 8.6 11/02/21 06:30: Cortisol 33.20 H Cardiology Labs/Tests 11/02/21 06:30: Sodium 129 L, Potassium 4.3, Chloride 97 L, Carbon Dioxide 26.0, Anion Gap 6, BUN 21 H, Creatinine 0.99, Est GFR (MDRD) Af Amer 69, Est GFR (MDRD) Non-Af 57 L, BUN/Creatinine Ratio 21.3 H, Glucose 101, Calcium 8.6 Rhythm: Atrial fibrillation Physical Exam Narrative This is an 86-year-old hard of hearing white female who appears to be resting reasonably comfortably at the moment and in no acute distress. Const alert, oriented x3 and no apparent distress Orientation / Consciousness: awake HEENT normocephalic and head/scalp atraumatic Eyes PERRL, EOMs intact bilaterally, conjunctivae normal and no scleral icterus Neck full ROM, supple and no JVD Resp Auscultation: wheezes scattered wheezes (Less prominent compared to previous examinations) Cardio Rhythm: abnormal rhythm irregularly irregular Heart Sounds: S1 normal and S2 normal GI normal to inspection, nondistended, normoactive bowel sounds Extremity General Extremity: edema bilateral lower extremity Details: mild Skin no rashes or lesions noted Psych mental status grossly normal Assessment & Plan Assessment/Plan (1) Atrial fibrillation: QUALIFIERS: Atrial fibrillation type: unspecified Qualified Code(s): I48.91 - Unspecified atrial fibrillation PLAN: The patient appears to have atrial fibrillation. The etiology may be multifactorial secondary to combination of her age, hypertension, and underlying cardiovascular/pulmonary disease. The duration of atrial fibrillation is unknown at this time. She we will continue to be monitored. She will continue rate control therapy as deemed appropriate. She will continue anticoagulant therapy as deemed a ppropriate. 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 Based upon her objective studies this appears to be CHF with reduced ejection fraction. At the moment she is being monitored. She has demonstrated improvement with IV diuretics. These will be changed to oral agents. Attempt will be made to increase her beta-kiera dose. She is already undergone evaluation with a transthoracic echocardiogram. She has undergone evaluation with a diagnostic cardiac catheterization. It did not appear she had angiographically significant CAD to explain her left ventricular systolic dysfunction. 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 She will need to continue medical management. (3) Pleural effusion: PLAN: She does have pleural effusions which appear to be related to her CHF. She will continue medical management with diuresis. Over time it would not be unreasonable to consider a follow-up chest x-ray to reevaluate her pulmonary status. (4) Cardiomyopathy: PLAN: Based upon her previous evaluation it appears that she has a non-CAD related cardiomyopathy. At the moment she will continue medical management. Her medications will be advanced as tolerated. (5) Acute hyponatremia: PLAN: She was noted to have hyponatremia. This may be secondary to her CHF. Her electrolytes will need to be followed while she undergoes evaluation and care. (6) Hyperlipidemia: PLAN: She has a reported history of hyperlipidemia. She will continue evaluation and care as deemed appropriate. (7) Hypertension: PLAN: She has a history of hypertension. She will need to continue medical management as deemed appropriate. (8) PAD (peripheral artery disease): PLAN: Of note, it appears based upon her evaluation in the cardiac catheterization laboratory that she has peripheral arterial disease involving he r iliac/femoral artery system. This can be evaluated over time as she is treated for her underlying acute cardiovascular related issues in the interim. Addt'l Comments The above was discussed and reviewed with the patient and the patient's son. This note was generated using a voice recognition system and there may be incorrect words, spelling or punctuation that were not noted when reviewing the office note prior to saving.
[2021-11-02] MEDS: Cholecalciferol (VIT D3) 25 MCG TABLET (1,000 UNITS) PO (10:17)
[2021-11-02] MEDS: APIXABAN 2.5 MG TABLET PO ×2 (10:17→20:59)
[2021-11-02] MEDS: SACUBITRIL/VALSARTAN 24/26 MG TABLET 1 EACH PO ×2 (10:17→20:59)
[2021-11-02] MEDS: Furosemide 80 MG Tablet PO (10:29)
[2021-11-02] MEDS: Bisacodyl 5 MG Tablet 10 MG PO (13:41)
[2021-11-02] MEDS: Carvedilol 12.5 MG Tablet PO (16:47)
[2021-11-02] MEDS: Furosemide 40 MG Tablet PO (18:10)
[2021-11-02] MEDS: Atorvastatin Calcium 20 MG Tablet PO (20:59)
[2021-11-03] VITALS (7 sets, daily range): BP systolic 99–115; BP diastolic 51–60; PULSE 74–105; RESP 16–20; TEMP 36.2–37.1; O2SAT 93–97
[2021-11-03 06:05] LABS: Anion Gap 7 (5-15); BUN 23 mg/dL (7-18); BUN/Creat Ratio 22.1 RATIO (10-20); Calcium,Total 8.6 mg/dL (8.5-10.1); Chloride 95 mmol/L (98-107); Creatinine, Serum 1.04 mg/dL (0.55-1.02); EST Glomerular Filtration Rate 53 mL/min (>60); Est Glom Filt Rate - Afr Amer 65 mL/min (>60); Estimated Creatinine Clearance 33.53 ml/min; Glucose 103 mg/dL (74-106); Potassium 4.1 mmol/L (3.5-5.1); Sodium Level 129 mmol/L (136-145)
[2021-11-03] MEDS: Carvedilol 12.5 MG Tablet PO (06:23)
[2021-11-03] MEDS: Potassium Chloride Oral Tablet 20 MEQ 40 MEQ PO (08:17)
[2021-11-03] MEDS: APIXABAN 2.5 MG TABLET PO (08:17)
[2021-11-03] MEDS: Furosemide 40 MG Tablet PO (08:17)
[2021-11-03] MEDS: Cholecalciferol (VIT D3) 25 MCG TABLET (1,000 UNITS) PO (08:18)
[2021-11-03] MEDS: Aspirin 81 MG TAB.CHEW PO (08:18)
[2021-11-03] MEDS: SACUBITRIL/VALSARTAN 24/26 MG TABLET 1 EACH PO (08:18)
--- NOTE | 2021-11-03 08:45 | PN.HOSP_ITS ---
Subjective Subjective Had diarrhea after dulcolax and colace. Objective Data Objective Data Vital Signs: Vital Signs Temp Pulse Resp BP Pulse Ox O2 Del Method O2 Flow Rate 37.1 C 82 20 H 109/52 L 93 Room Air 3 11/03/21 08:09 11/03/21 08:09 11/03/21 08:09 11/03/21 08:09 11/03/21 08:13 11/03/21 08:13 11/02/21 07:22 Oxygen Flow Rate (L/min) 3 Oxygen Delivery Method Room Air Weight: 72.8 kg Body Mass Index (BMI) 28.1 Intake & Output: Intake and Output for Last 24 Hours 11/01/21 11/02/21 11/03/21 23:59 23:59 23:59 Intake Total 360 / 360 Output Total 1850 / 1850 1200 / 1950 1250 / 1250 Balance -1850 / -1850 -840 / -1590 -1250 / -1250 Lab / Micro Data Result Diagrams: 11/01/21 06:32 11/03/21 05:25 Labs: Laboratory Results - last 24 hr 11/02/21 06:30: Cortisol 33.20 H 11/03/21 05:25: Sodium 129 L, Potassium 4.1, Chloride 95 L, Carbon Dioxide 27.0, Anion Gap 7, BUN 23 H, Creatinine 1.04 H, Estim Creat Clear Calc 33.53, Est GFR (MDRD) Af Amer 65, Est GFR (MDRD) Non-Af 53 L, BUN/Creatinine Ratio 22.1 H, Glucose 103, Calcium 8.6 Micro: Microbiology 10/29/21 13:43 Blood Culture (Wb) - Anticubital Right Blood Culture - Preliminary No growth in 48 hours. 10/29/21 13:30 Blood Culture (Wb) - Anticubital Left Blood Culture - Preliminary No growth in 48 hours. 10/29/21 13:45 Nasal Secretion SARS-CoV-2 & FLU Antigen (Rapid) - Final Physical Exam Const alert Resp normal respiratory effort and no retractions Resp Narrative: bibasilar crackles. Cardio regular rate, regular rhythm, S1 normal heart sound and S2 normal heart sound GI normal to inspection, nondistended, normoactive bowel sounds and soft to palpation Extremity normal to inspection, full ROM and no clubbing, cyanosis or edema Assessment & Plan Assessment/Plan (1) CHF (congestive heart failure): QUALIFIERS: Heart failure chronicity: acute Heart failure type: unspecified Qualified Code(s): I50.9 - Heart failure, unspecified (2) Acute hyponatremia: (3) Acute hypoxemic respiratory failure: (4) Pleural effusion: (5) Atrial fibrillation: QUALIFIERS: Atrial fibrillation type: unspecified Qualified Code(s): I48.91 - Unspecified atrial fibrillation PLAN: Plan 1. Acute heart failure with reduced ejection fraction Plan: * 2D echo shows an EF of 30%. Left atrium is moderately enlarged. Right atrium moderately enlarged. Right ventricular systolic pressure 41 mmHg. * Cardiology input appreciated. * Left heart catheterization performed 10/31 and showed nonobstructive coronary disease * Started on carvedilol as well as sacubitril/valsartan * change furosemide to PO 2. Atrial fibrillation Unclear how long its been going on [id number] score of 5 Plan: * Metoprolol tartrate * apixaban 3. Hyponatremia improved Suspect due to HCTZ and CHF, but cannot rule out SIADH Plan: * Continue to hold HCTZ and monitor * Serum osm 257, TSH WNL, Ur Osm 28 4. Pleural effusions Secondary to CHF Treat as above No plan for thoracentesis at this time 5. PAD Difficulty with catheterization access FLP unremarkable Follow up vascular surgery 6. VTE prophylaxis: Not indicated as patient is anticoagulated 8. CODE STATUS: Addressed with patient. Patient was to be full code. 9. Debility: PT OT evaluate and treat. TCU on 11/03
--- NOTE | 2021-11-03 12:05 | TREXTCAR_ITS ---
Diet Diet Order/Speech Therapy: 10/31/21 11:17 Diet: Cardiac - Heart Healthy Is pt able to select menu?: Yes Routine Orders/Code Status Routine Lab Work: [facility] (Mondays) Code Status: Full Code Wound(s) right radial: Wound Type: heart cath site right groin: Wound Type: heart cath site left groin: Wound Type: heart cath site Therapies Weight Bearing: Full weight bearing Physical Therapy: Eval and Treat Occupational Therapy: Eval and Treat Problem/Diagnosis (1) CHF (congestive heart failure): Status: Acute Code(s): I50.9 - Heart failure, unspecified (2) Acute hyponatremia: Status: Acute Code(s): E87.1 - Hypo-osmolality and hyponatremia (3) Acute hypoxemic respiratory failure: Status: Acute Code(s): J96.01 - Acute respiratory failure with hypoxia (4) Pleural effusion: Status: Acute Code(s): J90 - Pleural effusion, not elsewhere classified (5) Atrial fibrillation: Status: Acute Code(s): I48.91 - Unspecified atrial fibrillation Plan 1. Acute heart failure with reduced ejection fraction Plan: * 2D echo shows an EF of 30%. Left atrium is moderately enlarged. Right atrium moderately enlarged. Right ventricular systolic pressure 41 mmHg. * Cardiology input appreciated. * Left heart catheterization performed 10/31 and showed nonobstructive coronary disease * Started on carvedilol as well as sacubitril/valsartan * change furosemide to PO 2. Atrial fibrillation Unclear how long its been going on [id number] score of 5 Plan: * Metoprolol tartrate * apixaban 3. Hyponatremia improved Suspect due to HCTZ and CHF, but cannot rule out SIADH Plan: * Continue to hold HCTZ and monitor * Serum osm 257, TSH WNL, Ur Osm 28 4. Pleural effusions Secondary to CHF Treat as above No plan for thoracentesis at this time 5. PAD Difficulty with catheterization access FLP unremarkable Follow up vascular surgery 6. VTE prophylaxis: Not indicated as patient is anticoagulated 8. CODE STATUS: Addressed with patient. Patient was to be full code. 9. Debility: PT OT evaluate and treat. TCU on 11/03 Allergies/Procedures Done in Hospital Allergies Tetanus Vaccines and Toxoid [Tetanus Vaccines & Toxoid] Allergy (Verified 10/29/21 13:15) Low platelets Procedures: 2-D Echocardiogram and Cardiac catheterization Type of Care/Length of Stay Estimated LOS: Convalescent Care Less Than 30 days Type of Care Needed: Skilled Rehab Potential: Good Prognosis: Good Additional Orders/Day of Discharge Day of Discharge: 11/03/21 Dietary and Speech Recommendations Dietitian Recommendations/Changes: continue cardiac diet; recommend fluid restriction as indicated. Discharge Plan Admission Admit Date/Time: 10/29/21 16:13 Primary Reason for Your Visit: CHF exacerbation Attending Provider: Mino Saldana Primary Care Provider: Alexys Bond Consulting Providers: Issa Oglesby Discharge Orders/Prescriptions Prescriptions: New Eliquis 2.5 mg Tablet 2.5 mg PO BID Qty: 0 0RF furosemide 40 mg Tablet 40 mg PO BIDLX Qty: 0 0RF atorvastatin 20 mg Tablet 20 mg PO QHS Qty: 0 0RF carvedilol 12.5 mg Tablet 12.5 mg PO BIDAC Qty: 0 0RF potassium chloride [Klor-Con M20] 20 mEq Tablet,Er Particles/Crystals 40 meq PO BIDCM Qty: 0 0RF Entresto 24-26 mg Tablet 1 tab PO BID Qty: 0 0RF Continued docusate sodium 100 MG capsule 100 mg PO DAILY PRN PRN (Reason: Constipation) Label Comments: constipation cholecalciferol (vitamin D3) 1,000 UNIT tablet 1,000 unit PO DAILY Label Comments: supplement melatonin 5 mg Tablet 5 mg PO QHS PRN (Reason: Sleep) acetaminophen [Acetaminophen Pain Relief] 500 mg Tablet 1,000 mg PO Q6H PRN (Reason: Pain (Scale Score 1-10)) Discontinued quinapril 40 MG tablet 40 mg PO DAILY Label Comments: blood pressure amlodipine 5 mg tablet 10 mg PO DAILY Label Comments: blood pressure hydrochlorothiazide 12.5 mg Capsule 12.5 mg PO QODAY Referrals / Follow Up: [facility] [Provider Group] - Within 1 Month Alexys Bond MD [Primary Care Provider] - Within 2 Weeks Disposition Disposition (needs filled in before D/C Order can be placed): [facility] (1) CHF (congestive heart failure) Qualifiers: Heart failure type: unspecified Heart failure chronicity: acute Qualified Code(s): I50.9 - Heart failure, unspecified (2) Atrial fibrillation Qualifiers: Atrial fibrillation type: unspecified Qualified Code(s): I48.91 - Unspecified atrial fibrillation
--- NOTE | 2021-11-03 12:11 | DS.PCM_ITS ---
Providers Date of Admission: 10/29/21 Primary Care Physician: Dr. Alexys Bond MD Consultations 10/30/21 18:05 Consult: Cardiology Routine Consulting Provider: Issa Oglesby Reason for Consult: HFrEF EMERGENT Consult: No MD Notified: Yes Date Notified: 10/30/21 Time Notified: 18:05 Method of Notification: Text Reason For Visit: CHF HYPOXIA Diagnosis Discharge Diagnosis (1) CHF (congestive heart failure): Status: Acute Code(s): I50.9 - Heart failure, unspecified Qualifiers: Heart failure type: unspecified Heart failure chronicity: acute Qualified Code(s): I50.9 - Heart failure, unspecified (2) Acute hyponatremia: Status: Acute Code(s): E87.1 - Hypo-osmolality and hyponatremia (3) Acute hypoxemic respiratory failure: Status: Acute Code(s): J96.01 - Acute respiratory failure with hypoxia (4) Pleural effusion: Status: Acute Code(s): J90 - Pleural effusion, not elsewhere classified (5) Atrial fibrillation: Status: Acute Code(s): I48.91 - Unspecified atrial fibrillation Qualifiers: Atrial fibrillation type: unspecified Qualified Code(s): I48.91 - Unspecified atrial fibrillation Plan 1. Acute heart failure with reduced ejection fraction Plan: * 2D echo shows an EF of 30%. Left atrium is moderately enlarged. Right atrium moderately enlarged. Right ventricular systolic pressure 41 mmHg. * Cardiology input appreciated. * Left heart catheterization performed 10/31 and showed nonobstructive coronary disease * Started on carvedilol as well as sacubitril/valsartan * change furosemide to PO 2. Atrial fibrillation Unclear how long its been going on [id number] score of 5 Plan: * Metoprolol tartrate * apixaban 3. Hyponatremia improved Suspect due to HCTZ and CHF, but cannot rule out SIADH Plan: * Continue to hold HCTZ and monitor * Serum osm 257, TSH WNL, Ur Osm 28 4. Pleural effusions Secondary to CHF Treat as above No plan for thoracentesis at this time 5. PAD Difficulty with catheterization access FLP unremarkable Follow up vascular surgery 6. VTE prophylaxis: Not indicated as patient is anticoagulated 8. CODE STATUS: Addressed with patient. Patient was to be full code. 9. Debility: PT OT evaluate and treat. TCU on 11/03 Medications at Discharge Home Medications cholecalciferol (vitamin D3) 25 mcg (1,000 unit) tablet 1,000 unit PO DAILY supplement 06/22/14 docusate sodium 100 mg capsule 100 mg PO DAILY PRN PRN Constipation 06/22/14 acetaminophen 500 mg tablet (Acetaminophen Pain Relief) 1,000 mg PO Q6H PRN Pain (Scale Score 1-10) 10/29/21 melatonin 5 mg tablet 5 mg PO QHS PRN Sleep 10/29/21 apixaban 2.5 mg tablet (Eliquis) 2.5 mg PO BID #0 tabs 11/03/21 atorvastatin 20 mg tablet 20 mg PO QHS #0 tabs 11/03/21 carvedilol 12.5 mg tablet 12.5 mg PO BIDAC #0 tabs 11/03/21 furosemide 40 mg tablet 40 mg PO BIDLX #0 tabs 11/03/21 potassium chloride 20 mEq tablet,extended release(part/cryst) (Klor-Con M) 40 meq PO BIDCM #0 tabs 11/03/21 sacubitril 24 mg-valsartan 26 mg tablet (Entresto) 1 tab PO BID #0 tabs 11/03/21 Hospital Course Operations None Procedures 2-D Echocardiogram and Cardiac catheterization Summary of Care Provided Minutes Spent on Discharge: 32 Weight / BMI Weight Weight: 72.8 kg Body Mass Index (BMI) 28.1 ABG / Lab / Microbiology Data Result Diagrams: 11/01/21 06:32 11/03/21 05:25 Laboratory: Laboratory Results - last 24 hr 11/03/21 05:25: Sodium 129 L, Potassium 4.1, Chloride 95 L, Carbon Dioxide 27.0, Anion Gap 7, BUN 23 H, Creatinine 1.04 H, Estim Creat Clear Calc 33.53, Est GFR (MDRD) Af Amer 65, Est GFR (MDRD) Non-Af 53 L, BUN/Creatinine Ratio 22.1 H, Glucose 103, Calcium 8.6 Microbiology: Microbiology 10/29/21 13:43 Blood Culture (Wb) - Anticubital Right Blood Culture - Preliminary No growth in 48 hours. 10/29/21 13:30 Blood Culture (Wb) - Anticubital Left Blood Culture - P reliminary No growth in 48 hours. 10/29/21 13:45 Nasal Secretion SARS-CoV-2 & FLU Antigen (Rapid) - Final Meaningful Use Info Meaningful Use Diagnoses (Choose all that apply): CHF CHF GUTIERREZ/ARB ordered at discharge?: Yes Documented LVEF (%): 30 Discharge Plan Admission Admit Date/Time: 10/29/21 16:13 Primary Reason for Your Visit: CHF exacerbation Attending Provider: Mino Saldana Primary Care Provider: Alexys Bond Consulting Providers: Issa Oglesby Discharge Orders/Prescriptions Prescriptions: New Eliquis 2.5 mg Tablet 2.5 mg PO BID Qty: 0 0RF furosemide 40 mg Tablet 40 mg PO BIDLX Qty: 0 0RF atorvastatin 20 mg Tablet 20 mg PO QHS Qty: 0 0RF carvedilol 12.5 mg Tablet 12.5 mg PO BIDAC Qty: 0 0RF potassium chloride [Klor-Con M20] 20 mEq Tablet,Er Particles/Crystals 40 meq PO BIDCM Qty: 0 0RF Entresto 24-26 mg Tablet 1 tab PO BID Qty: 0 0RF Continued docusate sodium 100 MG capsule 100 mg PO DAILY PRN PRN (Reason: Constipation) Label Comments: constipation cholecalciferol (vitamin D3) 1,000 UNIT tablet 1,000 unit PO DAILY Label Comments: supplement melatonin 5 mg Tablet 5 mg PO QHS PRN (Reason: Sleep) acetaminophen [Acetaminophen Pain Relief] 500 mg Tablet 1,000 mg PO Q6H PRN (Reason: Pain (Scale Score 1-10)) Discontinued quinapril 40 MG tablet 40 mg PO DAILY Label Comments: blood pressure amlodipine 5 mg tablet 10 mg PO DAILY Label Comments: blood pressure hydrochlorothiazide 12.5 mg Capsule 12.5 mg PO QODAY Referrals / Follow Up: [facility] [Provider Group] - Within 1 Month Alexys Bond MD [Primary Care Provider] - Within 2 Weeks Disposition Disposition (needs filled in before D/C Order can be placed): Care Home Facility Charges/Coding Visit Charges Inpatient E&M: 07614 Disch Hosp
--- NOTE | 2021-11-03 12:41 | NURSING ---
report called to TCU
== END 2021-11-03 13:46 | DRG 286 ==
LOC: ED 15:55 → PCU 16:11
PROVIDERS: Internal Medicine Cardiovascular Disease; Emergency Provider Emergency Medicine; PCP Family Medicine
DX: I11.0 Hypertensive heart disease with heart failure (principal); J96.01 Acute respiratory failure with hypoxia; I50.21 Acute systolic (congestive) heart failure; E22.2 Syndrome of inappropriate secretion of antidiuretic hormone; D69.3 Immune thrombocytopenic purpura; E87.1 Hypo-osmolality and hyponatremia; I42.9 Cardiomyopathy, unspecified; I48.91 Unspecified atrial fibrillation; I25.118 Atherosclerotic heart disease of native coronary artery with other forms of angina pectoris; I73.9 Peripheral vascular disease, unspecified; E78.5 Hyperlipidemia, unspecified; R53.81 Other malaise; Z79.01 Long term (current) use of anticoagulants; Z79.899 Other long term (current) drug therapy; Z87.891 Personal history of nicotine dependence; Z82.49 Family history of ischemic heart disease and other diseases of the circulatory system
CPT/HCPCS: 36415; 71045; 71275; 80048; 80053; 80061; 81001; 82533; 83605; 83690; 83735; 83880; 83930; 83935; 84300; 84443; 84484; 85025; 85610; 85730; 87040; 87426; 87428; 93005; 93306; 93458; 94640; 97110; 97116; 97162; 97166; 97535; 99152; 99153; 99251; 99285; 99406; J7030; Q9957; Q9967; A4216; C1769; C1894; G0463; J1940; J2405

== ENCOUNTER 2021-11-03 13:56 | Inpatient (IN) | payer MEDICARE, BC, SELFPAY ==
[2021-11-03 14:07] VITALS: BP 87/54; PULSE 76; RESP 18; TEMP 36.4; O2SAT 99; BMI 25.9
--- NOTE | 2021-11-03 17:30 | HP.PCM_ITS ---
HPI - General General Date of Admission: 11/03/21 Date of Service: 11/05/21 Chief Complaint: Here for rehab. HPI Narrative 10/29/2021 DELORES MONTOYA, is a 86 Female who presents to [facility] Emergency Department with generalized illness. 10/29/2021 EKG atrial fibrillation with premature ventricular or aberrantly conducted complexes, left bundle branch block. Cough, runny nose x several days, 1 emesis. covid19 negative, flu negative, labored breathing, confusion, dry cough. Chest X-ray showed bilateral pleural effusions, congestive heart failure. WBC 126, Sodium 121, CO2 18, Creatinine 1.38, BUN 23, Troponin 15, BNP 687, Lactic Acid 2.5. CTA chest negative pulmonary embolism, but bilateral pleural effusion, con gestive heart failure. 10/29/2021 Admit to Hospital. IV Lasix, Echo, for congestive heart failure. Metoprolol, Lovenox for atrial fibrillation. Stop HCTZ for hyponatremi. 10/29/2021 Echo moderate global LV systolic dysfunction. EF 30%. Right ventrcular systolic pressure 41mm HG. 10/30/2021 Breathing better. IV Lasix, consult cardiology for acute systolic congestive heart failure, new onset atrial fibrillation. 10/30/2021 Dr. Oglesby recommended heart catheterization. 10/31/2021 Shortness of breath with exertion, feels weak overall. Heart cath shows nonobstructive coronary disease. Evaluate hyponatremia for SIADH. 11/01/2021 Breathing better, oxygen 4 liters per nasal cannula. Carvedilol, Entresto added for acute systolic congestive heart failure. Eliquis added for atrial fibrillation. 11/02/2021 Room Air, Lasix changed to oral. PT/OT for SNF. 11/03/2021 Admit to TCU with debility, here for rehabilitation, strengthening, prior to discharge home alone. [facility] Medical History (Updated 11/03/21 @ 17:[address] Reyes Null MD) Fracture, humerus closed, shaft Humerus fracture Hyperlipidemia Hypertension Hypokalemia ITP Home Medications cholecalciferol (vitamin D3) 25 mcg (1,000 unit) tablet 1,000 unit PO DAILY supplement 06/22/14 [History Last Taken 11/03/21] docusate sodium 100 mg capsule 100 mg PO DAILY PRN PRN Constipation 06/22/14 [History Last Taken 11/01/21] acetaminophen 500 mg tablet (Acetaminophen Pain Relief) 1,000 mg PO Q6H PRN Pain (Scale Score 1-10) 10/29/21 [History Last Taken Unknown] melatonin 5 mg tablet 5 mg PO QHS PRN Sleep 10/29/21 [History Last Taken 10/28/21] apixaban 2.5 mg tablet (Eliquis) 2.5 mg PO BID Anticoagulant 11/03/21 [History Last Taken 11/03/21] atorvastatin 20 mg tablet 20 mg PO QHS Colesterol 11/03/21 [History Last Taken 11/02/21] carvedilol 12.5 mg tablet 12.5 mg PO BIDAC B/P 11/03/21 [History Last Taken 11/03/21] furosemide 40 mg tablet 40 mg PO BIDLX Fluid overload 11/03/21 [History Last Taken 11/03/21] potassium chloride 20 mEq tablet,extended release(part/cryst) (Klor-Con M) 40 meq PO BIDCM Cardiac health 11/03/21 [History Last Taken 11/03/21] sacubitril 24 mg-valsartan 26 mg tablet (Entresto) 1 tab PO BID Heart Failure 11/03/21 [History Last Taken 11/03/21] Allergy/AdvReac Type Severity Reaction Status Date / Time Tetanus Vaccines and Toxoid Allergy Low Verified 10/29/21 13:15 [Tetanus Vaccines & Toxoid] platelets Family History Brother Heart disease Surgical History H/O eye surgery H/O splenectomy H/O: hysterectomy History of laparoscopic cholecystectomy Social History (Updated 11/03/21 @ 17:[address] Reyes Null MD) household members: none Smoking Status: Former smoker alcohol intake: never substance use type: does not use ROS Constitutional Constitutional: Denies chills, fever(s) or weight gain ENT HEENT: Denies headache(s), nasal congestion or nasal discharge Cardiovascular Cardiovascular: Denies chest pain or palpitations Respiratory/Chest Respiratory/Chest: Denies cough, excessive phlegm production or shortness of breath with exertion Gastrointestinal Gastrointestinal: Denies abdominal pain, nausea or vomiting Genitourinary Genitourinary: Denies dysuria Musculoskeletal Musculoskeletal: Denies joint pain or joint swelling Integumentary Integumentary: Denies rash or wounds Neurologic Neurologic: Denies focal weakness, numbness or tingling Psychiatric Psychiatric: Denies anxiety, auditory hallucinations, depression, homicidal ideation or suicidal ideation Vital Signs Vital Signs Vital Signs: 11/03/21 14:07 11/03/21 14:07 Temperature 97.5 F L Temperature Source Temporal Pulse Rate 76 Pulse Rhythm Irregular Pulse Strength Normal (2+) Respiratory Rate 18 Respiratory Effort Normal Non-Labored Respiratory Pattern Irregular Blood Pressure 87/54 L Blood Pressure Mean 65 Blood Pressure Source Monitor Blood Pressure Position Sitting Blood Pressure Location Right Arm Pulse Ox 99 Oxygen Delivery Method Room Air Room Air Weight Weight: 68.583 kg Body Mass Index (BMI) 25.9 Physical Exam Const alert General Appearance: cooperative HEENT normocephalic Eyes PERRL and EOMs intact bilaterally Neck supple, no JVD and no carotid bruits Resp normal respiratory effort, normal air movement and clear to auscultation b ilaterally Cardio regular rate and regular rhythm GI normal to inspection, nondistended, normoactive bowel sounds, non-tender and non-distended Extremity normal capillary refill General Extremity: Negative for edema Skin no rashes or lesions noted General Skin Exam: no breakdown Psych affect normal Appearance: appropriate Results Lab / Micro Data Result Diagrams: 11/04/21 05:10 11/04/21 05:10 Assessment & Plan Assessment/Plan (1) Debility: (2) Acute respiratory failure with hypoxia: (3) Acute systolic congestive heart failure: (4) New onset atrial fibrillation: (5) Hyponatremia: (6) Hypertension: (7) Vitamin D deficiency: PLAN: Plan 86 year old female with below past medical history hospitalized for acute respiratory failure with hypoxia secondary to acute systolic congestive heart failure, heart cath negative, complicated by atrial fibrillation, hyponatremia, admitted to TCU with debility, here for rehabilitation, strengthening, prior to discharge home alone. * Debility - PT/OT. * Pain - Tylenol 1000mg q6h prn (1-10). * Bowel - senna/colace 1 tablet bid, Dulcolax 10mg daily prn. * Adult immunization - Administer pneumonia vaccine, covid19 vaccine, flu vaccine as appropriate. * DVT prophylaxis - Not necessary, already anticoagulated. * Atrial fibrillation - Coreg 12.5mg bidcm, Eliquis 2.5mg bid. * Hyperlipidemia - Atorvastatin 20mg qhs. * Acute systolic congestive heart failure - Coreg 12.5mg bidcm, Entresto 24/26mg bidcm, Furosemide 40mg bid. * Insomnia - Melatonin 5mg qhs prn. * Skin irritation - Calmoseptine topical bid. * Hypokalemia - KCL 40meq bidcm. * Vitamin D deficiency - D3 25mcg daily. * UTI - UA c/w urinary tract infection, urine C+S, Cefuroxime 500mg bid x 7 days.
[2021-11-03] MEDS: Carvedilol 12.5 MG Tablet PO (17:54)
[2021-11-03] MEDS: Menthol/Lanolin/Calamine/Znox 113 GM Tube 1 APPLIC TOPICAL (17:54)
[2021-11-03] MEDS: APIXABAN 2.5 MG TABLET PO (17:54)
[2021-11-03] MEDS: Potassium Chloride Oral Tablet 20 MEQ 40 MEQ PO (17:54)
[2021-11-03] MEDS: SACUBITRIL/VALSARTAN 24/26 MG TABLET 1 EACH PO (17:56)
[2021-11-03] MEDS: Senna/Docusate Sodium 1 Tablet PO (18:11)
[2021-11-03] MEDS: Atorvastatin Calcium 20 MG Tablet PO (20:34)
[2021-11-04] MEDS: Cholecalciferol (VIT D3) 25 MCG TABLET (1,000 UNITS) PO (05:25)
[2021-11-04] MEDS: Furosemide 40 MG Tablet PO ×2 (05:25→13:59)
[2021-11-04] MEDS: APIXABAN 2.5 MG TABLET PO ×2 (05:25→16:58)
[2021-11-04 05:27] VITALS: BP 113/59; PULSE 97
[2021-11-04] MEDS: Menthol/Lanolin/Calamine/Znox 113 GM Tube 1 APPLIC TOPICAL ×2 (05:27→16:59)
[2021-11-04] MEDS: SACUBITRIL/VALSARTAN 24/26 MG TABLET 1 EACH PO ×2 (05:27→16:58)
[2021-11-04 05:34] LABS: Absolute Lymphocyte Count 2.39 X10^3/uL (0.83-4.51); Absolute Neutrophil Count 10.8 X10^3/uL (2.0-7.7); Basophil# 0.08 X10^3/uL; Basophil% 0.5 % (0-1); Eosinophil# 0.32 X10^3/uL; Eosinophils% 2.1 % (0-5); Hematocrit 35.7 % (37-47); Hemoglobin 11.6 g/dL (12.0-15.0); Lymphocyte # 2.39 X10^3/ul (0.83-4.51); Lymphocyte % 15.8 % (19-41); Mean Corp Hgb Conc 32.5 g/dL (32-36); Mean Corpuscular Hgb 29.1 pg (27.0-32.0); Mean Corpuscular Volume 89.5 fL (81-99); Mean Platelet Vol. 9.9 fl (6.2-12.0); Monocyte# 1.49 X10^3/uL; Monocyte% 9.9 % (0-10); NRBC Flagged by Analyzer 0 % (0-5); Neutrophil # 10.75 X10^3/uL (2.7-7.7); Neutrophil % 71.1 % (47-70); Platelet Count 342 K/mm3 (150-450); RBC Distribution Width CV 13.3 % (11.6-14.6); RBC Distribution Width SD 44.1 fl (35.1-43.9); Red Blood Count 3.99 M/mm3 (4.2-5.4); White Blood Count 15.1 K/mm3 (4.4-11.0)
[2021-11-04 05:57] LABS: Anion Gap 6 (5-15); BUN 29 mg/dL (7-18); BUN/Creat Ratio 22.3 RATIO (10-20); Calcium,Total 8.8 mg/dL (8.5-10.1); Chloride 100 mmol/L (98-107); EST Glomerular Filtration Rate 41 mL/min (>60); Est Glom Filt Rate - Afr Amer 50 mL/min (>60); Estimated Creatinine Clearance 26.82 ml/min; Glucose 103 mg/dL (74-106); Sodium Level 131 mmol/L (136-145)
--- NOTE | 2021-11-04 07:54 | NURSING ---
Dr. Null updated on pt's WBC no new orders at this time.
[2021-11-04] MEDS: Carvedilol 12.5 MG Tablet PO ×2 (08:12→16:57)
[2021-11-04] MEDS: Potassium Chloride Oral Tablet 20 MEQ 40 MEQ PO ×2 (08:13→16:58)
[2021-11-04] MEDS: Tuberculin,Purif.prot.deriv. 50 TU/ML Vial 0.1 ML ID (13:59)
[2021-11-04 15:05] VITALS: BP 104/62; PULSE 95; RESP 18; TEMP 36.9; O2SAT 95
--- NOTE | 2021-11-04 17:10 | RAD_ITS ---
INDICATION: Elevated WBC. EXAMINATION/TECHNIQUE: X-RAY - XR Chest 2 Views COMPARISON: 10/29/2021 FINDINGS: LIFE-SUPPORT AND LINES: 1. None HEART AND VESSELS: The cardiac silhouette, pulmonary vasculature have normal appearance. No evidence of congestive failure. LUNGS AND PLEURAL SPACES: RIGHT cardiac LEFT lower lobe consolidation, LEFT effusion noted. Minimal atelectasis at the RIGHT base. Remaining lung zones clear No pulmonary mass is noted. MEDIASTINUM AND HILAR REGIONS: No masses adenopathy noted. No areas of calcification. Visualized upper airway is normal in position. BONY ELEMENTS: No acute bony changes noted. Postop changes of prior ORIF of the RIGHT humerus. RAD/Chest PA and Lateral IMPRESSION: 1. Persistent although improving retrocardiac LEFT lower lobe consolidation, small LEFT effusion noted. 2. Minimal atelectasis at the RIGHT base. 3. No congestive failure. Electronically Signed: Steven Garcia MD at 23:44 EDT ,
[2021-11-04 19:45] VITALS: PULSE 74; RESP 16; O2SAT 94
[2021-11-04 21:47] LABS: Mucous, Urine 0 SEEN /hpf (<or=2+)
[2021-11-04 21:49] LABS: Color, Urine Yellow (Yellow); Glucose, Dipstick Normal (Normal); Ketone-Dipstick Negative (Negative); Leukocyte Esterase-Dipstick 500 /ul (Negative); Nitrite-Dipstick Negative (Negative); Occult Blood-Urine 50 /ul (Negative); Protein-Dipstick 30 mg/dl (Negative); Urine Bilirubin Dipstick Negative (Negative); Urine Clarity Sl. Cloudy (Clear); Urine Urobilinogen Normal (Normal)
[2021-11-04 22:03] LABS: Bacteria RARE /hpf (None Seen); Red Blood Cells-Urine 5-10 SEEN /hpf (0-5); Squamous Epithelial Cells - UA 0-5 SEEN /hpf (5-10); White Blood Cells 50-100 SEEN /hpf (0-5)
[2021-11-04 22:04] LABS: Amorphous Sediment 1+ URATE
--- NOTE | 2021-11-04 22:30 | NURSING ---
Updated Dr Null on UA results, verbal order to start cefuroxime 500mg BID x7 days, first dose now. Orders entered.
[2021-11-04] MEDS: CEFUROXIME AXETIL 250 MG TABLET 500 MG PO (22:55)
[2021-11-04] MEDS: Atorvastatin Calcium 20 MG Tablet PO (22:55)
[2021-11-05] MEDS: Menthol/Lanolin/Calamine/Znox 113 GM Tube 1 APPLIC TOPICAL ×2 (05:19→17:02)
[2021-11-05] MEDS: Cholecalciferol (VIT D3) 25 MCG TABLET (1,000 UNITS) PO (05:20)
[2021-11-05] MEDS: APIXABAN 2.5 MG TABLET PO ×2 (05:21→18:49)
[2021-11-05] MEDS: Furosemide 40 MG Tablet PO ×2 (05:21→13:44)
[2021-11-05 05:23] VITALS: BP 99/52; PULSE 86
[2021-11-05] MEDS: Potassium Chloride Oral Tablet 20 MEQ 40 MEQ PO ×2 (09:27→17:02)
--- NOTE | 2021-11-05 14:38 | PHA.CONS_ITS ---
TCU RX Drug Regimen Review Subjective: TCU Admission. 86 YOF presented to the ER with generalized weakness. Admitted to the hospital with respiratory failure secondary to CHF and new atrial fibrillation. Cardiology recommended heart cath which was negative. Admitted to TCU with debility for strengthening and rehabilitation. Objective: Allergies Tetanus Vaccines and Toxoid [Tetanus Vaccines & Toxoid] Allergy (Verified 10/29/21 13:15) Low platelets Current Medications Generic Name Dose Route Start Last Admin Trade Name Freq PRN Reason Stop Dose Admin Acetaminophen 1,000 mg 11/03/21 14:52 Acetaminophen 500 Mg Tablet PO Q6H PRN PRN Pain (Scale Score 1-10) Apixaban 2.5 mg 11/03/21 18:00 11/05/21 05:21 Apixaban 2.5 Mg Tablet PO 2.5 mg BID KANDY Administration Atorvastatin Calcium 20 mg 11/03/21 22:00 11/04/21 22:55 Atorvastatin Calcium 20 Mg Tablet PO 20 mg QHS KANDY Administration Bisacodyl 10 mg 11/03/21 17:53 Bisacodyl 5 Mg Tablet PO DAILY PRN Constipation Calamine/Phenol 1 applic 11/03/21 18:00 11/05/21 05:19 Menthol/Lanolin/Calamine/Znox 113 Gm Tube TOPICAL 1 applic BID KANDY Administration Protocol Carvedilol 12.5 mg 11/03/21 17:00 11/05/21 09:27 Carvedilol 12.5 Mg Tablet PO Not Given BIDCM [facility] Cefuroxime Axetil 500 mg 11/04/21 22:30 11/04/21 22:55 Cefuroxime Axetil 250 Mg Tablet PO 500 mg 1800 KANDY Administration Cholecalciferol 25 mcg 11/04/21 06:00 11/05/21 05:20 Cholecalciferol (Vit D3) 25 Mcg Tablet (1,000 Units) PO 25 mcg DAILY KANDY Administration Furosemide 40 mg 11/04/21 06:00 11/05/21 13:44 Furosemide 40 Mg Tablet PO 40 mg BIDLX KANDY Administration Melatonin 5 mg 11/03/21 14:58 Melatonin 10 Mg Tablet PO QHS PRN Sleep Potassium Chloride 40 meq 11/03/21 17:00 11/05/21 09:27 Potassium Chloride Oral Tablet 20 Meq PO 40 meq BIDCM KANDY Administration Sacubitril/Valsartan 1 each 11/03/21 18:00 11/05/21 07:33 Sacubitril/Valsartan 24/26 Mg Tablet PO Not Given BID KANDY Senna/Docusate Sodium 1 tablet 11/03/21 18:00 11/05/21 05:21 Senna/Docusate Sodium 1 Tablet PO Not Given BID KANDY Sodium Chloride 10 - 40 ml 11/03/21 14:08 0.9% Saline Lock 10 Ml Syringe IV UD PRN SALINE FLUSH Tuberculin PPD 0.1 ml 11/11/21 10:00 Tuberculin,Purif.Prot.Deriv. 50 Tu/Ml Vial ID 11/11/21 10:01 X1 ONE Problem List (Last Reviewed 11/03/21 @ 17:[address] Reyes Null MD) Vitamin D deficiency (Acute) Hypertension (Chronic) Hyponatremia (Acute) New onset atrial fibrillation (Acute) Acute systolic congestive heart failure (Acute) Acute respiratory failure with hypoxia (Acute) Debility (Acute) Vital Signs Temp Pulse Resp BP Pulse Ox O2 Del Method 98.4 F 86 16 99/52 L 94 Room Air 11/04/21 15:05 11/05/21 05:23 11/04/21 19:45 11/05/21 05:23 11/04/21 19:45 11/04/21 19:45 Oxygen Delivery Method Room Air Weight: 68.583 kg Body Mass Index (BMI) 25.9 Sodium 131 mmol/L (136-145) L 11/04/21 05:10 Potassium 5.0 mmol/L (3.5-5.1) 11/04/21 05:10 Chloride 100 mmol/L (98-107) 11/04/21 05:10 Carbon Dioxide 25.0 mmol/L (21.0-32.0) 11/04/21 05:10 Anion Gap 6 (5-15) 11/04/21 05:10 BUN 29 mg/dL (7-18) H 11/04/21 05:10 Creatinine 1.30 mg/dL (0.55-1.02) H 11/04/21 05:10 Est GFR (MDRD) Af Amer 50 mL/min (>60) L 11/04/21 05:10 Est GFR (MDRD) Non-Af 41 mL/min (>60) L 11/04/21 05:10 BUN/Creatinine Ratio 22.3 RATIO (10-20) H 11/04/21 05:10 Glucose 103 mg/dL (74-106) 11/04/21 05:10 Assessment/Plan: 1. Pain: acetaminophen 1000mg PO Q6H PRN pain 1-10. Please continue to monitor for increased pain and PRN usage. Resident has not had a dose yet. 2. Bowel: senna/docusate 1T PO BID and bisacodyl 10mg PO daily PRN constipation. Please consider changing senna/docusate to PRN constipation. Resident has refused 3/4 doses. Thanks. Please continue to monitor for constipation and PRN usage. Resident has not had any doses of bisacodyl and has not had a documented bowel movement. 3. Atrial fibrillation/HFrEF: carvedilol 12.5mg PO BIDCM, apixaban 2.5mg PO BID, sacubitril/valsartan 24/26 PO BIDCM and furosemide 40mg PO BID. Please continue to monitor for S/S of bleeding, hemoglobin (last 11.6g/dL), HR (last 86), BP (last 99/52), edema, potassium (last 5mmol/L) and sodium (last 131mmol/L). Please consider changing apixaban dose to 5mg PO BID if clinically appropriate. Resident does not meet 2/3 criteria for the reduced dose. Resident is >80 years old but weight is >60kg and SCr is <1.5mg/dL. Thanks. 4. UTI: cefuroxime 500mg PO daily for 7 days. Please continue to monitor urine culture (growing GNR lactose instructional technology director), renal function (dose already adjusted for renal function) and diarrhea. 5. Hyperlipidemia: atorvastatin 20mg PO QHS. Please continue to monitor lipid panel/LFTs at least annually or as clinically appropriate (last 10/29/21) and for muscle pain. 6. Hypokalemia: potassium chloride 40mEq PO BIDCM. Please continue to monitor potassium levels (last 5mmol/L). 7. Insomnia: melatonin 5mg PO QHS PRN sleep. Please continue to monitor for insomnia and PRN usage. Resident has not received any doses yet. 8. Vitamin D deficiency: cholecalciferol 25mcg PO daily. Please consider ordering a vitamin D level now and than annually as clinically appropriate. Resident does not have a level in the chart. Thanks. Assessment/Plan for indications treated with psychotropic medications: None Medical chart and medication regimen reviewed. The following medication irregularities or issues were identified: *1. Senna/docusate 1T PO BID. Please consider changing senna/docusate to PRN constipation. Resident has refused 3/4 doses. Thanks. *2. Apixaban 2.5mg PO BID. Please consider changing apixaban dose to 5mg PO BID if clinically appropriate. Resident does not meet 2/3 criteria for the reduced dose. Resident is >80 years old but weight is >60kg and SCr is <1.5mg/dL. Thanks. *3. Cholecalciferol 25mcg PO daily. Please consider ordering a vitamin D level now and than annually as clinically appropriate. Resident does not have a level in the chart. Thanks. Date of Note:: 11/05/21
[2021-11-05 15:37] VITALS: BP 89/51; PULSE 86; RESP 16; TEMP 36.6; O2SAT 92
--- NOTE | 2021-11-05 16:05 | CASEMGMT ---
Social Work Met with patient to complete initial assessment. Introduced self and role. DIL, son and gddtr present in room. Pt granted permission for SW to complete assessment with family present. Discussed code status. DIL answered for pt for full code. Redirected question to pt. CHACORTA again interjected with we have a HCPOA and LW all stating that all measures are to be done right now and that if/when the time comes, the decisions default to me, the POA. Dtr expressed frustration with pt being asked about code status multiple times. SW confirmed advanced directives are on file, but explained wishes change pertaining to code status and the question is asked multiple to times to ensure medical staff are always upholding pt's wishes. Pt still did not voice her wishes for code status. Informed pt if she would like her code status changed at any time, to notify staff. SW opted not complete MOLST with pt at this time and will revisit with pt independently at a later time. Verified/updated contacts/numbers/addresses. Contacted registration to update. Explained Medicare benefit. Encouraged to contact secondary insurance to ensure copay coverage. Pt/DIL insisted secondary will cover costs. Pt lived at home alone with 3 steps to enter and was independent prior with ADLs and IADLs. DIL, son and neighbors assisted as needed. The goal is to return home. SW to continue to follow for discharge planning. PHOENIX JacobsonW
[2021-11-05] MEDS: CEFUROXIME AXETIL 250 MG TABLET 500 MG PO (17:01)
[2021-11-05] MEDS: SACUBITRIL/VALSARTAN 24/26 MG TABLET 1 EACH PO (17:02)
[2021-11-05] MEDS: Carvedilol 12.5 MG Tablet PO (17:02)
[2021-11-05 20:00] VITALS: PULSE 81; RESP 16; O2SAT 99
[2021-11-05] MEDS: Atorvastatin Calcium 20 MG Tablet PO (20:12)
[2021-11-06] MEDS: Menthol/Lanolin/Calamine/Znox 113 GM Tube 1 APPLIC TOPICAL ×2 (05:25→17:09)
[2021-11-06] MEDS: Acetaminophen 500 MG Tablet 1000 MG PO (05:25)
[2021-11-06] MEDS: Furosemide 40 MG Tablet PO ×2 (05:28→14:14)
[2021-11-06] MEDS: Cholecalciferol (VIT D3) 25 MCG TABLET (1,000 UNITS) PO (05:28)
[2021-11-06] MEDS: APIXABAN 2.5 MG TABLET PO ×2 (05:28→17:09)
[2021-11-06] MEDS: SACUBITRIL/VALSARTAN 24/26 MG TABLET 1 EACH PO ×2 (05:28→17:09)
[2021-11-06 05:37] VITALS: BP 110/54; PULSE 84; RESP 16; O2SAT 95
[2021-11-06] MEDS: Potassium Chloride Oral Tablet 20 MEQ 40 MEQ PO ×2 (08:05→17:09)
[2021-11-06] MEDS: Carvedilol 12.5 MG Tablet PO ×2 (08:05→17:09)
--- NOTE | 2021-11-06 08:08 | NURSING ---
SON HERE, STATES PT HAS NOT RECOLLECTION OF YESTERDAY ALSO ASKING ABOUT MEDICATIONS THAT PT IS ON AND COULD THIS BE CAUSING HER ISSUES. FEELS SHE IS WORSE SINCE ADMIT. DR PLAZA ORDERED MRI OF BRAIN AND VIT B12. UPDATED SON. SON WANTS TO SPEAK WITH BOLA AND DENNIS RAMIREZ. SON VERY CONCERNED ABOUT HIS MOTHER. SON LEFT FLOOR TO PAY FOR MRI AT REGISTRATION DESK. REVIEWED PTS HOME MEDS WITH HOSPITAL MEDS WITH SON.
[2021-11-06 09:07] VITALS: O2SAT 95
[2021-11-06] MEDS: COVID-19 VACC, MRNA(PFIZER)/PF 30 MCG/0.3 ML SYRINGE IM (11:08)
--- NOTE | 2021-11-06 12:44 | NURSING ---
FYI: Son took one hearing aid out of facility to be repaired.
[2021-11-06 14:52] VITALS: BP 96/58; PULSE 74; RESP 12; TEMP 36.7; O2SAT 98
--- NOTE | 2021-11-06 16:44 | CHAPLAIN ---
Type of Pastoral Visit _x__ Initial Visit ___ Follow-up Visit ___ On-call Visit ___ General Patient Visit ___ Spiritual Assessment ___ Family Conference ___ Bereavement ___ Rapid Response ___ Code Blue ___ Other (describe below) Pastoral Care Referral From _x__ Patient ___ Family ___ Nurse ___ Physician ___ Utility Worker Production ___ Fur Comber ___ Other (describe below) Sacrament/Intervention _x__ Active listening ___ Anointing ___ Methodist ___ Bereavement ___ Communion ___ Zoe exploration ___ _x__ Life review _x__ Prayer ___ Reconciliation ___ Sacrament of Sick _x__ Supportive presence ___ Wedding ___ Other (describe below) Pastoral Comments initially saw this patient in PCU; follow up and patient looks well cared for and is alert; pt admits to feeling tired but states that she has little improvements; pt says she now understands that she was slowing down but didn't notice it until it was concerning; pt worked in pharmacy retail for 50 years and would still be doing that if I could; pt talks about the people that knew her at work and how some still visit her; pt states I have had a blessed life and God has been good to me; pt would like to improve her strength and return home; prayer is welcomed
[2021-11-06] MEDS: CEFUROXIME AXETIL 250 MG TABLET 500 MG PO (17:09)
[2021-11-06 17:11] VITALS: BP 121/67; PULSE 91
[2021-11-06] MEDS: Carbamide Peroxide 15 ML Bottle 5 DRP OTIC (18:34)
[2021-11-06] MEDS: Atorvastatin Calcium 20 MG Tablet PO (21:54)
[2021-11-06 22:00] VITALS: PULSE 76; RESP 16; O2SAT 97
[2021-11-06] MEDS: MELATONIN 10 MG TABLET 5 MG PO (22:00)
[2021-11-07] MEDS: Menthol/Lanolin/Calamine/Znox 113 GM Tube 1 APPLIC TOPICAL ×2 (05:03→16:36)
[2021-11-07] MEDS: Furosemide 40 MG Tablet PO (05:03)
[2021-11-07] MEDS: Carbamide Peroxide 15 ML Bottle 5 DRP OTIC ×2 (05:03→16:35)
[2021-11-07] MEDS: APIXABAN 2.5 MG TABLET PO ×2 (05:03→16:35)
[2021-11-07] MEDS: SACUBITRIL/VALSARTAN 24/26 MG TABLET 1 EACH PO ×2 (05:03→16:35)
[2021-11-07] MEDS: Cholecalciferol (VIT D3) 25 MCG TABLET (1,000 UNITS) PO (05:04)
[2021-11-07] MEDS: Carvedilol 12.5 MG Tablet PO (07:29)
[2021-11-07] MEDS: Potassium Chloride Oral Tablet 20 MEQ 40 MEQ PO ×2 (07:30→16:35)
--- NOTE | 2021-11-07 09:03 | CASEMGMT ---
Social Work IDT met with patient and DIL for care plan meeting. Discussed patient's progress in PT/OT/SN. Explained Medicare benefit. Encouraged to contact secondary insurance to ensure copay coverage. The goal is for pt to return home alone. DIL and son are supportive and involved. Pt has 3 steps to enter and was independent prior. DIL expressed some conerns and questions. Provided supportive listening and relayed to Director. SW to continue to follow for discharge planning. Prachi Wilkinson, CITY SUPERINTENDENT PROPERTY HANDLER
[2021-11-07 10:00] VITALS: BP 84/50; PULSE 94
[2021-11-07 11:58] VITALS: BP 106/57; PULSE 86
--- NOTE | 2021-11-07 12:05 | NURSING ---
Addendum entered by Zoe White 11/07/21 12:25: Mary Beth AND HER DAUGHTER, FRANCISCO UPDATED ON NEW ORDERS. Addendum entered by Zoe White 11/07/21 12:17: CALLED DR PLAZA REGARDING BP'S. DECREASED LASIX TO DAILY. ALSO, MADE SENOKOT PRN. Original Note: Mary Beth BP DROPPED TO 84/50, HR 94 WHILE TOILETING IN THERAPY. ASSISTED BACK TO BED AND RESTED FOR AWHILE. ENCOURAGE FLUIDS. RECHECKED AND UP TO 106/57, HR 86. WILL UPDATE DR PLAZA OF BP'S BEING LOW.
--- NOTE | 2021-11-07 12:27 | NURSING ---
Daughter Cynthia would like to be updated with any New orders or Lab results.
[2021-11-07 15:21] VITALS: BP 101/54; PULSE 80; RESP 26; TEMP 36.3; O2SAT 98
[2021-11-07] MEDS: CEFUROXIME AXETIL 250 MG TABLET 500 MG PO (16:35)
[2021-11-07 20:38] VITALS: BP 103/49; PULSE 86; O2SAT 95
[2021-11-07] MEDS: Atorvastatin Calcium 20 MG Tablet PO (20:46)
[2021-11-07] MEDS: MELATONIN 10 MG TABLET 5 MG PO (20:49)
[2021-11-07 20:51] VITALS: PULSE 85; RESP 16; O2SAT 95
[2021-11-08 06:47] VITALS: BP 110/57; PULSE 80
[2021-11-08] MEDS: APIXABAN 2.5 MG TABLET PO ×2 (06:48→18:51)
[2021-11-08] MEDS: Furosemide 40 MG Tablet PO (06:48)
[2021-11-08] MEDS: Cholecalciferol (VIT D3) 25 MCG TABLET (1,000 UNITS) PO (06:48)
[2021-11-08] MEDS: SACUBITRIL/VALSARTAN 24/26 MG TABLET 1 EACH PO ×2 (06:48→18:51)
[2021-11-08] MEDS: Carbamide Peroxide 15 ML Bottle 5 DRP OTIC ×2 (06:50→18:51)
[2021-11-08] MEDS: Menthol/Lanolin/Calamine/Znox 113 GM Tube 1 APPLIC TOPICAL ×2 (06:54→18:56)
[2021-11-08 08:45] VITALS: BP 96/52; PULSE 91
[2021-11-08] MEDS: Potassium Chloride Oral Tablet 20 MEQ 40 MEQ PO ×2 (08:48→18:51)
--- NOTE | 2021-11-08 15:26 | CASEMGMT ---
Addendum entered by Prachi Wilkinson 11/09/21 08:53: Per Dr. Null, order remains DNR-CCA, no intubation. Original Note: Social Work BIMS and PHQ-9 completed for MDS assessment. Pt scored 15/15 on BIMS. Revisited code status wishes with pt. Explained all three options. Pt expressed she does not want CPR nor intubation and referenced her living will where it confirms those are her wishes. DNR form presented to pt and she signed for DNR-CCA, no intubation. Notified nursing. However, afterward, pt asked SW to contact DIL to update on changes and make sure she is aware/agreeable as her DIL instructed me not to sign anything without her knowing first. SW agreed to call DIL. Contacted DIL and updated that SW completed cognitive assessment that pt score indicates she is intact, thus SW revisited code status with pt. Pt expressed wishes to be a DNR-CCA, no intubation, but also wanted to ensure SW updated/included DIL about this conversation. CHACORTA replied, do you have an issue with her code status? How many times are you going to ask this? SW explained that it is not this worker's prerogative to agree or disagree with a patient's code status, and that this question is revisited several times with pt to ensure pt's wishes do not change and staff are upholding them. CHACORTA stated I will have a conversation with her and if something changes, I will notify the appropriate people. Thanked DIL. Collaborated with TCU Director and CM Fingernail Sculpturer to ensure SW was continuing to uphold patient wishes. Fingernail Sculpturer advised to provide information to Dr. Null as he signs the final order. SW left communication to Dr. Prachi Wilkinson, COUNSELING SERVICES DIRECTOR SUPERVISOR HEADING
[2021-11-08 15:58] VITALS: BP 120/66; PULSE 91; RESP 15; TEMP 36.6; O2SAT 97
[2021-11-08] MEDS: CEFUROXIME AXETIL 250 MG TABLET 500 MG PO (18:51)
[2021-11-08] MEDS: Carvedilol 12.5 MG Tablet PO (18:51)
[2021-11-08] MEDS: Atorvastatin Calcium 20 MG Tablet PO (20:07)
[2021-11-08 20:14] VITALS: PULSE 91; RESP 16; O2SAT 98
[2021-11-08] MEDS: MELATONIN 10 MG TABLET 5 MG PO (23:19)
[2021-11-08] MEDS: Acetaminophen 500 MG Tablet 1000 MG PO (23:20)
[2021-11-09] MEDS: Carbamide Peroxide 15 ML Bottle 5 DRP OTIC ×2 (06:00→18:23)
[2021-11-09] MEDS: Cholecalciferol (VIT D3) 25 MCG TABLET (1,000 UNITS) PO (06:00)
[2021-11-09] MEDS: SACUBITRIL/VALSARTAN 24/26 MG TABLET 1 EACH PO ×2 (06:00→18:54)
[2021-11-09] MEDS: APIXABAN 2.5 MG TABLET PO ×2 (06:00→18:23)
[2021-11-09] MEDS: Furosemide 40 MG Tablet PO (06:00)
[2021-11-09] MEDS: Menthol/Lanolin/Calamine/Znox 113 GM Tube 1 APPLIC TOPICAL ×2 (06:01→18:23)
[2021-11-09] MEDS: Potassium Chloride Oral Tablet 20 MEQ 40 MEQ PO ×2 (08:09→18:23)
[2021-11-09] MEDS: Carvedilol 12.5 MG Tablet PO ×2 (08:09→18:23)
[2021-11-09 16:00] VITALS: BP 120/73; PULSE 80; RESP 22; TEMP 36.4; O2SAT 96
--- NOTE | 2021-11-09 17:31 | NURSING ---
pt daughter here with many questions regarding BP meds and code status. Not happy the social and human services assistant spoke with pt after pt already chose to be full code and had her sign a DNRCC-A form. daughter and pt requested that code status be changed back to full code. reviewed medications with daughter. also asked about pts dentures causing sore gums at times and is chronic and pt uses warm salt water as needed. order entered per pt and daughter request. Daughter asked for social and human services assistant Managers phone number, given. pulled DNR paper from chart and pt daughter wanted copy.
[2021-11-09] MEDS: CEFUROXIME AXETIL 250 MG TABLET 500 MG PO (18:23)
[2021-11-09] MEDS: MELATONIN 10 MG TABLET 5 MG PO (21:23)
[2021-11-09] MEDS: Acetaminophen 500 MG Tablet 1000 MG PO (21:23)
[2021-11-09] MEDS: Atorvastatin Calcium 20 MG Tablet PO (21:24)
[2021-11-10] MEDS: Menthol/Lanolin/Calamine/Znox 113 GM Tube 1 APPLIC TOPICAL ×2 (05:50→17:59)
[2021-11-10] MEDS: APIXABAN 2.5 MG TABLET PO ×2 (05:51→17:59)
[2021-11-10] MEDS: Furosemide 40 MG Tablet PO (05:51)
[2021-11-10] MEDS: SACUBITRIL/VALSARTAN 24/26 MG TABLET 1 EACH PO ×2 (05:51→17:59)
[2021-11-10] MEDS: Carbamide Peroxide 15 ML Bottle 5 DRP OTIC ×2 (05:51→17:58)
[2021-11-10] MEDS: Cholecalciferol (VIT D3) 25 MCG TABLET (1,000 UNITS) PO (05:52)
[2021-11-10] MEDS: Carvedilol 12.5 MG Tablet PO ×2 (07:59→17:59)
[2021-11-10] MEDS: Potassium Chloride Oral Tablet 20 MEQ 40 MEQ PO ×2 (07:59→17:59)
[2021-11-10 16:02] VITALS: BP 107/59; PULSE 83; RESP 14; TEMP 36.4; O2SAT 96
[2021-11-10] MEDS: CEFUROXIME AXETIL 250 MG TABLET 500 MG PO (17:58)
[2021-11-10 21:00] VITALS: PULSE 78; RESP 16; O2SAT 97
[2021-11-10] MEDS: Atorvastatin Calcium 20 MG Tablet PO (21:02)
[2021-11-10] MEDS: MELATONIN 10 MG TABLET 5 MG PO (21:05)
[2021-11-11] MEDS: Cholecalciferol (VIT D3) 25 MCG TABLET (1,000 UNITS) PO (05:37)
[2021-11-11] MEDS: Furosemide 40 MG Tablet PO (05:37)
[2021-11-11] MEDS: SACUBITRIL/VALSARTAN 24/26 MG TABLET 1 EACH PO ×2 (05:37→18:06)
[2021-11-11] MEDS: APIXABAN 2.5 MG TABLET PO ×2 (05:37→18:06)
[2021-11-11] MEDS: Carbamide Peroxide 15 ML Bottle 5 DRP OTIC ×2 (05:37→18:07)
[2021-11-11] MEDS: Menthol/Lanolin/Calamine/Znox 113 GM Tube 1 APPLIC TOPICAL ×2 (05:37→18:06)
[2021-11-11 06:04] LABS: Absolute Lymphocyte Count 2.74 X10^3/uL (0.83-4.51); Absolute Neutrophil Count 6.7 X10^3/uL (2.0-7.7); Basophil# 0.07 X10^3/uL; Basophil% 0.6 % (0-1); Eosinophil# 0.25 X10^3/uL; Eosinophils% 2.3 % (0-5); Hematocrit 38.3 % (37-47); Hemoglobin 12.4 g/dL (12.0-15.0); Lymphocyte # 2.74 X10^3/ul (0.83-4.51); Lymphocyte % 24.7 % (19-41); Mean Corp Hgb Conc 32.4 g/dL (32-36); Mean Corpuscular Hgb 28.9 pg (27.0-32.0); Mean Corpuscular Volume 89.3 fL (81-99); Mean Platelet Vol. 10.2 fl (6.2-12.0); Monocyte# 1.25 X10^3/uL; Monocyte% 11.3 % (0-10); NRBC Flagged by Analyzer 0 % (0-5); Neutrophil # 6.74 X10^3/uL (2.7-7.7); Neutrophil % 60.7 % (47-70); Platelet Count 394 K/mm3 (150-450); RBC Distribution Width CV 13.6 % (11.6-14.6); RBC Distribution Width SD 44.3 fl (35.1-43.9); Red Blood Count 4.29 M/mm3 (4.2-5.4); White Blood Count 11.1 K/mm3 (4.4-11.0)
[2021-11-11 06:27] LABS: Anion Gap 7 (5-15); BUN 34 mg/dL (7-18); BUN/Creat Ratio 32.7 RATIO (10-20); Calcium,Total 9.2 mg/dL (8.5-10.1); Chloride 108 mmol/L (98-107); Creatinine, Serum 1.04 mg/dL (0.55-1.02); EST Glomerular Filtration Rate 53 mL/min (>60); Est Glom Filt Rate - Afr Amer 65 mL/min (>60); Estimated Creatinine Clearance 33.53 ml/min; Glucose 97 mg/dL (74-106); Sodium Level 134 mmol/L (136-145)
[2021-11-11] MEDS: Potassium Chloride Oral Tablet 20 MEQ 40 MEQ PO ×2 (08:33→18:06)
--- NOTE | 2021-11-11 10:05 | NURSING ---
Offered to dress patient this AM after unsuccessful attempt with DONATION SPECIALIST. Refused for this nurse as well, stating she would like to remain in one of the hospital gown's.
[2021-11-11] MEDS: Tuberculin,Purif.prot.deriv. 50 TU/ML Vial 0.1 ML ID (10:20)
[2021-11-11 15:18] VITALS: BP 80/50; PULSE 85; RESP 16; TEMP 36.7; O2SAT 97
--- NOTE | 2021-11-11 15:38 | PCA ---
Washed up Room 21 this morning. Batsheva did not want to put any of her clothes on that I suggested to her. She said she would put a hospital gown on instead. Daughter came in & questioned our staff as to why her mother was not dressed, Nurse reported it to me. So, I went in & told her daughter that I washed her up this morning & offered her clothing options & Batsheva said she will put on a hospital gown. End of discussion. I came out & told the Nurses about it.
--- NOTE | 2021-11-11 15:48 | NURSING ---
This nurse and staff at [facility] heard daughter speaking loudly towards nurse Ramsey in hallway. This nurse went to ask if there was a problem, daughter stated she was getting an attitude, but didn't elaborate further and seemed irritated with this nurse also. This nurse apologized if there was a problem. Daughter continued to appear irritated and walked back into patient's room.
--- NOTE | 2021-11-11 15:52 | NURSING ---
While Charting at desk, overheard pt daughter getting agitated and raising voice to Nurse assigned to that room. Witnessed nurse and charge nurse apologizing for patient refusing to get dressed in personal clothes this AM. Pt daughter turned around walked off from staff into patient room.
--- NOTE | 2021-11-11 15:56 | NURSING ---
Patient's daughter wanted to speak to this nurse about her mother's care given to her this morning. Daughter was concerned that her mother was not dressed in her clothes and wanted to know why she was in a hospital gown. This nurse explained how patient was washed and put in a gown upon her request. Patient's daughter asked about her mother's blood pressure being low and since this was the second time this happened, wondered if she was being over medicated. This nurse explained the doctor would be made aware of patient's blood pressure and the need to hold medication. I informed patient's daughter, blood pressure will be re checked at evening med pass. Daughter then asked about labs and was getting upset with this nurse over results and became very loud and belligerent. Nurse Li attempted to speak with daughter without success.
[2021-11-11 16:19] VITALS: PULSE 85; RESP 16; O2SAT 97
[2021-11-11 18:00] VITALS: BP 113/54; PULSE 94
[2021-11-11] MEDS: Carvedilol 12.5 MG Tablet PO (18:06)
[2021-11-11] MEDS: Atorvastatin Calcium 20 MG Tablet PO (20:12)
[2021-11-11] MEDS: MELATONIN 10 MG TABLET 5 MG PO (20:14)
[2021-11-12 05:41] VITALS: BP 115/61; PULSE 80
[2021-11-12] MEDS: APIXABAN 2.5 MG TABLET PO ×2 (05:42→16:50)
[2021-11-12] MEDS: Cholecalciferol (VIT D3) 25 MCG TABLET (1,000 UNITS) PO (05:42)
[2021-11-12] MEDS: Carbamide Peroxide 15 ML Bottle 5 DRP OTIC ×2 (05:42→16:51)
[2021-11-12] MEDS: Furosemide 40 MG Tablet PO (05:42)
[2021-11-12] MEDS: SACUBITRIL/VALSARTAN 24/26 MG TABLET 1 EACH PO ×2 (05:42→16:51)
[2021-11-12] MEDS: Menthol/Lanolin/Calamine/Znox 113 GM Tube 1 APPLIC TOPICAL ×2 (05:43→16:49)
[2021-11-12] MEDS: Carvedilol 12.5 MG Tablet PO ×2 (07:48→16:49)
[2021-11-12] MEDS: Potassium Chloride Oral Tablet 20 MEQ 40 MEQ PO ×2 (07:49→16:49)
[2021-11-12 12:17] VITALS: BP 114/65; PULSE 92; RESP 16; TEMP 36.6; O2SAT 99
[2021-11-12] MEDS: Atorvastatin Calcium 20 MG Tablet PO (20:40)
[2021-11-12 22:00] VITALS: PULSE 80; RESP 16; O2SAT 97
[2021-11-12] MEDS: MELATONIN 10 MG TABLET 5 MG PO (23:38)
[2021-11-13] MEDS: Menthol/Lanolin/Calamine/Znox 113 GM Tube 1 APPLIC TOPICAL ×2 (06:30→16:33)
[2021-11-13] MEDS: Furosemide 40 MG Tablet PO (06:31)
[2021-11-13] MEDS: SACUBITRIL/VALSARTAN 24/26 MG TABLET 1 EACH PO ×2 (06:31→16:36)
[2021-11-13] MEDS: APIXABAN 2.5 MG TABLET PO ×2 (06:31→16:36)
[2021-11-13] MEDS: Carbamide Peroxide 15 ML Bottle 5 DRP OTIC ×2 (06:31→16:34)
[2021-11-13] MEDS: Cholecalciferol (VIT D3) 25 MCG TABLET (1,000 UNITS) PO (06:31)
--- NOTE | 2021-11-13 06:47 | NURSING ---
Patient's daughter Cynthia called and would like a call from Dr. Null. She is upset that nothing has been done about her mother's low blood pressure and coreg dosage; as well as her mouth. Note left for Dr Null. Patient stated that her mouth was feeling better.
[2021-11-13] MEDS: Potassium Chloride Oral Tablet 20 MEQ 40 MEQ PO ×2 (08:33→16:33)
--- NOTE | 2021-11-13 08:35 | CASEMGMT ---
Social Work Telephone call from patient [id number], Cynthia. Cynthia with multiple questions about how patient has been doing and communication with medical team. This social and human services assistant inquired about Cynthia's expectation for communication. Cynthia reports to want to be updated when new orders are placed. This social and human services assistant to meet with team and get back in contact with Cynthia. Aileen Vance MSW, WEIGHT REDUCING TECHNICIAN-S
[2021-11-13] MEDS: Carvedilol 6.25 MG Tablet PO ×2 (08:36→16:33)
[2021-11-13] MEDS: NYSTATIN 500,000 UNIT/5 ML UDC 500000 UNIT PO ×3 (11:43→22:05)
--- NOTE | 2021-11-13 14:24 | CASEMGMT ---
Social Work Telephone call to Cynthia, no answer. voicemail left. Per team, nursing has been updating Cynthia with new orders. Patient progressing in therapy. No discharge date set. Will continue to follow. Aileen GARIBAY, AVANI
[2021-11-13 16:00] VITALS: BP 106/57; PULSE 84; RESP 16; TEMP 36.4; O2SAT 96
[2021-11-13] MEDS: Acetaminophen 500 MG Tablet 1000 MG PO (22:02)
[2021-11-13] MEDS: MELATONIN 10 MG TABLET 5 MG PO (22:02)
[2021-11-13] MEDS: Atorvastatin Calcium 20 MG Tablet PO (22:05)
[2021-11-14] MEDS: Menthol/Lanolin/Calamine/Znox 113 GM Tube 1 APPLIC TOPICAL ×2 (05:49→17:46)
[2021-11-14] MEDS: Furosemide 40 MG Tablet PO (05:50)
[2021-11-14] MEDS: Cholecalciferol (VIT D3) 25 MCG TABLET (1,000 UNITS) PO (05:50)
[2021-11-14] MEDS: SACUBITRIL/VALSARTAN 24/26 MG TABLET 1 EACH PO ×2 (05:50→17:45)
[2021-11-14] MEDS: NYSTATIN 500,000 UNIT/5 ML UDC 500000 UNIT PO ×4 (05:50→20:30)
[2021-11-14] MEDS: APIXABAN 2.5 MG TABLET PO ×2 (05:50→17:45)
--- NOTE | 2021-11-14 06:14 | NURSING ---
Ear irrigation per pt. request as ordered per policy, patient tolerated well.
[2021-11-14 08:01] VITALS: BP 126/60; PULSE 92
[2021-11-14] MEDS: Potassium Chloride Oral Tablet 20 MEQ 40 MEQ PO ×2 (08:01→17:45)
[2021-11-14] MEDS: Carvedilol 6.25 MG Tablet PO ×2 (08:01→17:45)
--- NOTE | 2021-11-14 14:07 | NURSING ---
PT AND FAMILY NOTIFIED OF EMPLOYEE TESTING POSITIVE FOR COVID.
[2021-11-14 15:53] VITALS: BP 118/63; PULSE 101; RESP 20; TEMP 35.9; O2SAT 97
[2021-11-14 20:00] VITALS: O2SAT 98
[2021-11-14] MEDS: MELATONIN 10 MG TABLET 5 MG PO (20:30)
[2021-11-14] MEDS: Atorvastatin Calcium 20 MG Tablet PO (20:30)
[2021-11-15] MEDS: Menthol/Lanolin/Calamine/Znox 113 GM Tube 1 APPLIC TOPICAL ×2 (05:16→16:39)
[2021-11-15] MEDS: Furosemide 40 MG Tablet PO (05:17)
[2021-11-15] MEDS: NYSTATIN 500,000 UNIT/5 ML UDC 500000 UNIT PO ×4 (05:17→21:09)
[2021-11-15] MEDS: Cholecalciferol (VIT D3) 25 MCG TABLET (1,000 UNITS) PO (05:17)
[2021-11-15] MEDS: SACUBITRIL/VALSARTAN 24/26 MG TABLET 1 EACH PO ×2 (05:17→16:38)
[2021-11-15] MEDS: APIXABAN 2.5 MG TABLET PO ×2 (05:17→16:38)
[2021-11-15 05:18] VITALS: BP 109/64; PULSE 79
[2021-11-15] MEDS: Potassium Chloride Oral Tablet 20 MEQ 40 MEQ PO ×2 (07:59→16:38)
[2021-11-15] MEDS: Carvedilol 6.25 MG Tablet PO ×2 (07:59→16:39)
--- NOTE | 2021-11-15 08:46 | MDS.RN ---
Information for the mds was obtained from review of the clinical record, interview of resident, staff, and direct observation of resident's care.
[2021-11-15 13:03] VITALS: PULSE 91; RESP 16; O2SAT 95
[2021-11-15 15:44] VITALS: BP 125/60; PULSE 91; RESP 16; TEMP 36.7; O2SAT 92
[2021-11-15] MEDS: Atorvastatin Calcium 20 MG Tablet PO (21:09)
[2021-11-15] MEDS: MELATONIN 10 MG TABLET 5 MG PO (21:09)
[2021-11-16] MEDS: Acetaminophen 500 MG Tablet 1000 MG PO ×2 (00:19→13:23)
[2021-11-16] MEDS: NYSTATIN 500,000 UNIT/5 ML UDC 500000 UNIT PO ×4 (05:41→21:15)
[2021-11-16] MEDS: APIXABAN 2.5 MG TABLET PO ×2 (05:41→17:23)
[2021-11-16] MEDS: Furosemide 40 MG Tablet PO (05:41)
[2021-11-16] MEDS: Cholecalciferol (VIT D3) 25 MCG TABLET (1,000 UNITS) PO (05:41)
[2021-11-16] MEDS: Menthol/Lanolin/Calamine/Znox 113 GM Tube 1 APPLIC TOPICAL ×2 (05:41→17:24)
[2021-11-16] MEDS: SACUBITRIL/VALSARTAN 24/26 MG TABLET 1 EACH PO ×2 (05:41→17:25)
[2021-11-16 06:00] VITALS: BP 108/60; PULSE 77
[2021-11-16] MEDS: Potassium Chloride Oral Tablet 20 MEQ 40 MEQ PO ×2 (08:09→17:24)
[2021-11-16] MEDS: Carvedilol 6.25 MG Tablet PO ×2 (08:09→17:24)
[2021-11-16 15:28] VITALS: BP 109/63; PULSE 84; RESP 18; TEMP 35.8; O2SAT 98
[2021-11-16] MEDS: MELATONIN 10 MG TABLET 5 MG PO (21:14)
[2021-11-16] MEDS: Atorvastatin Calcium 20 MG Tablet PO (21:15)
[2021-11-17] MEDS: NYSTATIN 500,000 UNIT/5 ML UDC 500000 UNIT PO ×4 (04:37→20:53)
[2021-11-17] MEDS: APIXABAN 2.5 MG TABLET PO ×2 (04:37→17:23)
[2021-11-17] MEDS: SACUBITRIL/VALSARTAN 24/26 MG TABLET 1 EACH PO ×2 (04:38→17:23)
[2021-11-17] MEDS: Furosemide 40 MG Tablet PO (04:38)
[2021-11-17] MEDS: Cholecalciferol (VIT D3) 25 MCG TABLET (1,000 UNITS) PO (04:38)
[2021-11-17] MEDS: Menthol/Lanolin/Calamine/Znox 113 GM Tube 1 APPLIC TOPICAL ×2 (04:38→17:23)
[2021-11-17 04:51] VITALS: BP 111/68; PULSE 84
[2021-11-17] MEDS: Potassium Chloride Oral Tablet 20 MEQ 40 MEQ PO ×2 (07:38→17:23)
[2021-11-17] MEDS: Carvedilol 6.25 MG Tablet PO ×2 (07:38→17:23)
[2021-11-17 15:07] VITALS: BP 102/56; PULSE 81; RESP 15; TEMP 36.2; O2SAT 98
[2021-11-17] MEDS: Atorvastatin Calcium 20 MG Tablet PO (20:53)
[2021-11-17] MEDS: MELATONIN 10 MG TABLET 5 MG PO (20:59)
[2021-11-18] MEDS: Cholecalciferol (VIT D3) 25 MCG TABLET (1,000 UNITS) PO (05:36)
[2021-11-18] MEDS: APIXABAN 2.5 MG TABLET PO ×2 (05:36→17:37)
[2021-11-18] MEDS: NYSTATIN 500,000 UNIT/5 ML UDC 500000 UNIT PO ×2 (05:37→11:24)
[2021-11-18] MEDS: SACUBITRIL/VALSARTAN 24/26 MG TABLET 1 EACH PO ×2 (05:37→17:38)
[2021-11-18] MEDS: Furosemide 40 MG Tablet PO (05:37)
[2021-11-18] MEDS: Menthol/Lanolin/Calamine/Znox 113 GM Tube 1 APPLIC TOPICAL ×2 (05:38→20:44)
[2021-11-18 05:42] VITALS: BP 120/62; PULSE 94
[2021-11-18 06:51] LABS: Absolute Lymphocyte Count 2.63 X10^3/uL (0.83-4.51); Absolute Neutrophil Count 6.1 X10^3/uL (2.0-7.7); Basophil# 0.09 X10^3/uL; Basophil% 0.9 % (0-1); Eosinophil# 0.27 X10^3/uL; Eosinophils% 2.7 % (0-5); Hematocrit 38.8 % (37-47); Hemoglobin 12.7 g/dL (12.0-15.0); Lymphocyte # 2.63 X10^3/ul (0.83-4.51); Lymphocyte % 25.9 % (19-41); Mean Corp Hgb Conc 32.7 g/dL (32-36); Mean Corpuscular Hgb 29.4 pg (27.0-32.0); Mean Corpuscular Volume 89.8 fL (81-99); Mean Platelet Vol. 10.2 fl (6.2-12.0); Monocyte# 0.97 X10^3/uL; Monocyte% 9.6 % (0-10); NRBC Flagged by Analyzer 0 % (0-5); Neutrophil # 6.13 X10^3/uL (2.7-7.7); Neutrophil % 60.4 % (47-70); Platelet Count 337 K/mm3 (150-450); RBC Distribution Width CV 13.2 % (11.6-14.6); RBC Distribution Width SD 43.7 fl (35.1-43.9); Red Blood Count 4.32 M/mm3 (4.2-5.4); White Blood Count 10.1 K/mm3 (4.4-11.0)
[2021-11-18 07:05] LABS: Anion Gap 8 (5-15); BUN 33 mg/dL (7-18); BUN/Creat Ratio 29.7 RATIO (10-20); Chloride 109 mmol/L (98-107); Creatinine, Serum 1.11 mg/dL (0.55-1.02); EST Glomerular Filtration Rate 50 mL/min (>60); Est Glom Filt Rate - Afr Amer 60 mL/min (>60); Estimated Creatinine Clearance 31.42 ml/min; Glucose 109 mg/dL (74-106); Potassium 4.6 mmol/L (3.5-5.1); Sodium Level 137 mmol/L (136-145)
[2021-11-18] MEDS: Potassium Chloride Oral Tablet 20 MEQ 40 MEQ PO ×2 (08:19→17:37)
[2021-11-18] MEDS: Carvedilol 6.25 MG Tablet PO ×2 (08:19→17:37)
--- NOTE | 2021-11-18 14:02 | NURSING ---
pt c/o upset stomach and nausea, feels that its from nystatin s/s. happens after swallowing it. dr nunes updated, new order for abi GERMAIN. will review meds.
[2021-11-18] MEDS: proCHLORPERazine 5 MG Tablet PO ×2 (14:30→20:48)
[2021-11-18] MEDS: Fluconazole 100 MG Tablet PO (15:17)
[2021-11-18 16:00] VITALS: BP 107/66; PULSE 83; RESP 16; TEMP 36.2; O2SAT 98
[2021-11-18 19:52] VITALS: PULSE 85; RESP 16; O2SAT 99
[2021-11-18] MEDS: MELATONIN 10 MG TABLET 5 MG PO (20:44)
[2021-11-18] MEDS: Atorvastatin Calcium 20 MG Tablet PO (20:44)
[2021-11-19] MEDS: Fluconazole 100 MG Tablet PO (05:32)
[2021-11-19] MEDS: APIXABAN 2.5 MG TABLET PO ×2 (05:32→17:30)
[2021-11-19] MEDS: Menthol/Lanolin/Calamine/Znox 113 GM Tube 1 APPLIC TOPICAL (05:32)
[2021-11-19] MEDS: Furosemide 40 MG Tablet PO (05:32)
[2021-11-19] MEDS: Cholecalciferol (VIT D3) 25 MCG TABLET (1,000 UNITS) PO (05:32)
[2021-11-19] MEDS: SACUBITRIL/VALSARTAN 24/26 MG TABLET 1 EACH PO ×2 (05:32→17:31)
[2021-11-19 05:41] VITALS: BP 113/60; PULSE 81
[2021-11-19] MEDS: Potassium Chloride Oral Tablet 20 MEQ 40 MEQ PO ×2 (08:10→17:31)
[2021-11-19] MEDS: Carvedilol 6.25 MG Tablet PO (08:11)
[2021-11-19 09:25] VITALS: PULSE 86; RESP 14; O2SAT 98
[2021-11-19 14:07] VITALS: BP 92/56; PULSE 83; RESP 16; TEMP 36.3; O2SAT 97
[2021-11-19] MEDS: MELATONIN 10 MG TABLET 5 MG PO (20:12)
[2021-11-19] MEDS: Atorvastatin Calcium 20 MG Tablet PO (20:13)
[2021-11-20] MEDS: SACUBITRIL/VALSARTAN 24/26 MG TABLET 1 EACH PO ×2 (05:36→18:08)
[2021-11-20] MEDS: Cholecalciferol (VIT D3) 25 MCG TABLET (1,000 UNITS) PO (05:37)
[2021-11-20] MEDS: Furosemide 40 MG Tablet PO (05:37)
[2021-11-20] MEDS: APIXABAN 2.5 MG TABLET PO ×2 (05:37→18:08)
[2021-11-20] MEDS: Fluconazole 100 MG Tablet PO (05:37)
[2021-11-20] MEDS: Menthol/Lanolin/Calamine/Znox 113 GM Tube 1 APPLIC TOPICAL ×2 (05:41→18:08)
[2021-11-20 05:45] VITALS: BP 116/65; PULSE 94; RESP 18; TEMP 35.8; O2SAT 98
[2021-11-20] MEDS: Potassium Chloride Oral Tablet 20 MEQ 40 MEQ PO ×2 (08:18→18:08)
[2021-11-20] MEDS: Carvedilol 6.25 MG Tablet PO ×2 (08:18→18:10)
[2021-11-20 10:00] VITALS: RESP 16
--- NOTE | 2021-11-20 10:33 | CASEMGMT ---
Addendum entered by Prachi Wilkinson 11/21/21 10:28: CHACORTA contacted this worker expressing frustration that pt signed NOMNC for her DC. DIL stated she wanted to have been present when pt signed NOMNC and to have SW go through her for all DC plans. DYLAN explained SW did coordinate DC plans with DIL, which also requires pt to sign NOMNC in agreement with requested DC plans, as pt is her own person. Pt agreed to plan and agreed to sign NOMNC, and a copy was provided to pt for DIL records. DYLAN apologized for misunderstanding/miscommunication. Offered to shred previously signed NOMNC and schedule a time for DIL to be present for SW to have pt sign new NOMNC. CHACORTA declined and stated It should have been done in the first place. You claimed you asked me that, but I claim you did not ask me that. I can't trust you. CHACORTA inquired about services ordered for HHC. DYLAN reiterated PT/OT/SN as discussed yesterday. CHACORTA stated she wanted to have a SENIOR COMMUNICATIONS ENGINEER. DYLAN explained a long-term SENIOR COMMUNICATIONS ENGINEER is an out of pocket cost, but DYLAN can contact [facility] to add LAUREANO to referral as presently requested by CHACORTA. CHACORTA replied that she made that request to SW yesterday but questioned, unless OT does bathing. DYLAN explained OT will complete bathing for therapy purposes. CHACORTA requested contact information for [facility] to ensure SW made the referral since CHACORTA had not received a phone call from [facility] to schedule services. DYLAN attempted to explain those referrals were made as stated they would be yesterday during conversation, but the calls will not come until closer to DC for scheduling and FWW will be delivered to pt's room prior to DC. CHACROTA continued to interject into SW explanations and expressed, I can't trust you to do your job, so I will just make the phone calls like you should have done, and ended the conversation. DYLAN left message with Debra at [facility] intake requesting to add SENIOR COMMUNICATIONS ENGINEER, if possible, and to please contact CHACORTA to review services ordered, that referral was received and accepted. DYLAN received return call from [facility] intake, Debra, confirming she spoke with the CHACORTA to explain requests, and can have SENIOR COMMUNICATIONS ENGINEER ordered. DYLAN added SENIOR COMMUNICATIONS ENGINEER in HHC order. Original Note: Social Work Received call from DIL to set DC date for pt. DIL requesting DC 11/26. IDT agreeable. DIL requesting [facility] and FWW. DIL to transport at [place]. SW made referral via phone to [facility] for PT/OT/SN and via fax to [facility] for FWW. Plan: [place] home 11/26, [facility] PT/OT/SN, FWW Prachi Wilkinson, [employer]LOBAL MARKETING INTERN OPERATIONAL METEOROLOGIST
[2021-11-20 15:03] VITALS: BP 107/52; PULSE 91; RESP 18; TEMP 36.2; O2SAT 97
--- NOTE | 2021-11-20 19:12 | DS.PCM_ITS ---
Providers Date of Admission: 11/03/21 Primary Care Physician: Dr. Alexys Bond MD Reason For Visit: CHF HYPOXIA Diagnosis Discharge Diagnosis (1) Debility: Status: Acute Code(s): R53.81 - Other malaise (2) Acute respiratory failure with hypoxia: Status: Acute Code(s): J96.01 - Acute respiratory failure with hypoxia (3) Acute systolic congestive heart failure: Status: Acute Code(s): I50.21 - Acute systolic (congestive) heart failure (4) New onset atrial fibrillation: Status: Acute Code(s): I48.91 - Unspecified atrial fibrillation (5) Hyponatremia: Status: Acute Code(s): E87.1 - Hypo-osmolality and hyponatremia (6) Hypertension: Status: Chronic Code(s): I10 - Essential (primary) hypertension (7) Vitamin D deficiency: Status: Acute Code(s): E55.9 - Vitamin D deficiency, unspecified Plan 86 year old female with below past medical history hospitalized for acute respiratory failure with hypoxia secondary to acute systolic congestive heart failure, heart cath negative, complicated by atrial fibrillation, hyponatremia, admitted to TCU with debility, here for rehabilitation, strengthening, prior to discharge home alone. * Debility - PT/OT. * Pain - Tylenol 1000mg q6h prn (1-10). * Bowel - senna/colace 1 tablet bid, Dulcolax 10mg daily prn. * Adult immunization - Administer pneumonia vaccine, covid19 vaccine, flu vaccine as appropriate. * DVT prophylaxis - Not necessary, already anticoagulated. * Atrial fibrillation - Coreg 12.5mg bidcm, Eliquis 2.5mg bid. * Hyperlipidemia - Atorvastatin 20mg qhs. * Acute systolic congestive heart failure - Coreg 12.5mg bidcm, Entresto 24/26mg bidcm, Furosemide 40mg bid. * Insomnia - Melatonin 5mg qhs prn. * Skin irritation - Calmoseptine topical bid. * Hypokalemia - KCL 40meq bidcm. * Vitamin D deficiency - D3 25mcg daily. * UTI - UA c/w urinary tract infection, urine C+S, Cefuroxime 500mg bid x 7 days. Medications at Discharge Home Medications cholecalciferol (vitamin D3) 25 mcg (1,000 unit) tablet 1,000 unit PO DAILY supplement 06/22/14 docusate sodium 100 mg capsule 100 mg PO DAILY PRN PRN Constipation 06/22/14 acetaminophen 500 mg tablet (Acetaminophen Pain Relief) 1,000 mg PO Q6H PRN Pain (Scale Score 1-10) 10/29/21 melatonin 5 mg tablet 5 mg PO QHS PRN Sleep 10/29/21 apixaban 2.5 mg tablet (Eliquis) 2.5 mg PO BID Anticoagulant 30 days #60 tabs 11/20/21 atorvastatin 20 mg tablet 20 mg PO QHS Colesterol 30 days #30 tabs 11/20/21 carvedilol 6.25 mg tablet 6.25 mg PO BIDCM 30 days #60 tabs 11/20/21 furosemide 40 mg tablet 40 mg PO DAILY 30 days #30 tabs 11/20/21 potassium chloride 20 mEq tablet,extended release(part/cryst) (Klor-Con M) 40 meq PO BIDCM Cardiac health 30 days #60 tabs 11/20/21 sacubitril 24 mg-valsartan 26 mg tablet (Entresto) 1 tab PO BID Heart Failure 30 days #60 tabs 11/20/21 Hospital Course Operations None Procedures None Summary of Care Provided Minutes Spent on Discharge: 35 Hospital Course: 86 year old female with below past medical history hospitalized for acute respiratory failure with hypoxia secondary to acute systolic congestive heart failure, heart cath negative, complicated by atrial fibrillation, hyponatremia, admitted to TCU with debility, here for rehabilitation, strengthening, prior to discharge home alone. Discharge home alone 11/26/2021, [facility] PT/OT/SN, Front Wheeled Walker. Physical Exam Const alert General Appearance: cooperative HEENT normocephalic Eyes PERRL and EOMs intact bilaterally Neck supple, no JVD and no carotid bruits Resp normal respiratory effort, normal air movement and clear to auscultation bilaterally Cardio regular rate and regular rhythm GI normal to inspection, nondistended, normoactive bowel sounds, non-tender and non-distended Extremity normal capillary refill General Extremity: Negative for edema Skin no rashes or lesions noted General Skin Exam: no breakdown Psych affect normal Appearance: appropriate Weight / BMI Weight Weight: 65.317 kg Body Mass Index (BMI) 25.9 ABG / Lab / Microbiology Data Result Diagrams: 11/18/21 06:25 11/18/21 06:25 Microbiology: Microbiology 11/15/21 10:24 Nasal Secretion SARS-CoV-2 Antigen (Rapid) - Final 11/10/21 Unknown Nasal Secretion SARS-CoV-2 Antigen (Rapid) - Final 11/04/21 21:30 Urine, Catheterized Urine Culture - Final Escherichia coli D/C Instructions Discharge Diet: No restrictions Discharge Activity: Return to Normal Activity, May Shower and Use Walker Weight Bearing Status: Weight bearing as tolerated Call your doctor if you observe: Fever of 101 or Higher, Inability to urinate, Inability to have a bowel movement, Shortness of breath, Dizziness, Fainting spells, Swelling in the ankles, Chest pain and Uncontrolled pain Additional Instructions: Discharge home alone 11/26/2021, [facility] PT/OT/SN, Front Wheeled Walker. Meaningful Use Info Meaningful Use Diagnoses (Choose all that apply): None applicable Discharge Plan Admission Admit Date/Time: 11/03/21 13:56 Primary Reason for Your Visit: Debility. Attending Provider: Reyes Null Chi Primary Care Provider: Alexys Bond Instructions Additional Instructions / Restrictions: Discharge home alone 11/26/2021, [facility] Care PT/OT/SN, Front Wheeled Walker. Discharge Orders/Prescriptions Prescriptions: New furosemide 40 mg Tablet 40 mg PO DAILY 30 Days Qty: 30 0RF carvedilol 6.25 mg Tablet 6.25 mg PO BIDCM 30 Days Qty: 60 0RF Continued docusate sodium 100 MG capsule 100 mg PO DAILY PRN PRN (Reason: Constipation) Label Comments: constipation cholecalciferol (vitamin D3) 1,000 UNIT tablet 1,000 unit PO DAILY Label Comments: supplement melatonin 5 mg Tablet 5 mg PO QHS PRN (Reason: Sleep) acetaminophen [Acetaminophen Pain Relief] 500 mg Tablet 1,000 mg PO Q6H PRN (Reason: Pain (Scale Score 1-10)) atorvastatin 20 mg tablet 20 mg PO QHS 30 Days Qty: 30 0RF potassium chloride [Klor-Con M20] 20 mEq tablet,ER particles/crystals 40 meq PO BIDCM 30 Days Qty: 60 0RF Eliquis 2.5 mg tablet 2.5 mg PO BID 30 Days Qty: 60 0RF Entresto 24-26 mg tablet 1 tab PO BID 30 Days Qty: 60 0RF Discontinued furosemide 40 mg tablet 40 mg PO BIDLX carvedilol 12.5 mg tablet 12.5 mg PO BIDAC Referrals / Follow Up: Alexys Bond MD [Primary Care Provider] - Disposition Disposition (needs filled in before D/C Order can be placed): Home Health Service
[2021-11-20] MEDS: Atorvastatin Calcium 20 MG Tablet PO (21:30)
[2021-11-20] MEDS: MELATONIN 10 MG TABLET 5 MG PO (21:30)
[2021-11-21] MEDS: SACUBITRIL/VALSARTAN 24/26 MG TABLET 1 EACH PO ×2 (05:53→17:48)
[2021-11-21] MEDS: APIXABAN 2.5 MG TABLET PO ×2 (05:53→17:48)
[2021-11-21] MEDS: Cholecalciferol (VIT D3) 25 MCG TABLET (1,000 UNITS) PO (05:53)
[2021-11-21] MEDS: Fluconazole 100 MG Tablet PO (05:53)
[2021-11-21] MEDS: Furosemide 40 MG Tablet PO (05:53)
[2021-11-21] MEDS: Menthol/Lanolin/Calamine/Znox 113 GM Tube 1 APPLIC TOPICAL ×2 (05:56→16:08)
[2021-11-21] MEDS: Potassium Chloride Oral Tablet 20 MEQ 40 MEQ PO ×2 (07:50→17:48)
--- NOTE | 2021-11-21 09:23 | NURSING ---
This nurse took patient's blood pressure before administering Coreg 6.25mg. First blood pressure taken at 0800 BP 92/55. Took again at 0900 BP 105/54. Patient told this nurse she did not want to take medication due to blood pressure being too low. Will continue to monitor. Call light within reach.
[2021-11-21 10:00] VITALS: PULSE 87; RESP 16; O2SAT 95
[2021-11-21 15:32] VITALS: BP 108/54; PULSE 87; RESP 14; TEMP 36.9; O2SAT 95
[2021-11-21] MEDS: Carvedilol 6.25 MG Tablet PO (16:07)
--- NOTE | 2021-11-21 18:36 | NURSING ---
Addendum entered by Bharathi Sanchez 11/21/21 23:00: Contacted lab regarding urinalysis sent by previous nurse, lab states unable to locate sample and will need re-collected. Will collect at next toileting. Patient denies dysuria. Original Note: Dr. Null ordered UA, C&S. This nurse collected urine via clean catch and sent to lab.
[2021-11-21] MEDS: MELATONIN 10 MG TABLET 5 MG PO (20:52)
[2021-11-21] MEDS: Atorvastatin Calcium 20 MG Tablet PO (20:53)
[2021-11-22 03:30] LABS: Mucous, Urine 0 SEEN /hpf (<or=2+)
[2021-11-22 03:41] LABS: Color, Urine Yellow (Yellow); Glucose, Dipstick Normal (Normal); Ketone-Dipstick Negative (Negative); Leukocyte Esterase-Dipstick Negative /ul (Negative); Nitrite-Dipstick Negative (Negative); Occult Blood-Urine 10 /ul (Negative); Protein-Dipstick Negative (Negative); Specific Gravity, Urine 1.015 (1.002-1.030); Urine Bilirubin Dipstick Negative (Negative); Urine Clarity Clear (Clear); Urine Urobilinogen Normal (Normal)
[2021-11-22 03:49] LABS: Bacteria RARE /hpf (None Seen); Red Blood Cells-Urine 0-5 SEEN /hpf (0-5); Squamous Epithelial Cells - UA 0-5 SEEN /hpf (5-10); White Blood Cells 0-5 SEEN /hpf (0-5)
[2021-11-22] MEDS: SACUBITRIL/VALSARTAN 24/26 MG TABLET 1 EACH PO (05:55)
[2021-11-22] MEDS: APIXABAN 2.5 MG TABLET PO ×2 (05:55→18:50)
[2021-11-22] MEDS: Furosemide 40 MG Tablet PO (05:55)
[2021-11-22] MEDS: Cholecalciferol (VIT D3) 25 MCG TABLET (1,000 UNITS) PO (05:55)
[2021-11-22] MEDS: Fluconazole 100 MG Tablet PO (05:56)
[2021-11-22] MEDS: Menthol/Lanolin/Calamine/Znox 113 GM Tube 1 APPLIC TOPICAL (05:56)
[2021-11-22 06:00] VITALS: BP 98/64; PULSE 82; RESP 16
[2021-11-22 08:32] VITALS: BP 94/49; PULSE 87
[2021-11-22 08:33] VITALS: BP 80/46; PULSE 83
[2021-11-22] MEDS: Potassium Chloride Oral Tablet 20 MEQ 40 MEQ PO ×2 (08:35→18:50)
--- NOTE | 2021-11-22 08:37 | NURSING ---
held coreg this AM d/t low BP, will update MD. pt concerned about going home and having low BPs and what meds to take.
[2021-11-22 14:43] VITALS: BP 110/51; PULSE 95; RESP 16; TEMP 36.5; O2SAT 98
[2021-11-22] MEDS: Atorvastatin Calcium 20 MG Tablet PO (21:35)
[2021-11-22] MEDS: MELATONIN 10 MG TABLET 5 MG PO (21:39)
[2021-11-22 22:00] VITALS: PULSE 73; RESP 16; O2SAT 93
[2021-11-23] MEDS: Menthol/Lanolin/Calamine/Znox 113 GM Tube 1 APPLIC TOPICAL ×2 (05:54→18:11)
[2021-11-23] MEDS: APIXABAN 2.5 MG TABLET PO ×2 (05:55→18:11)
[2021-11-23] MEDS: Cholecalciferol (VIT D3) 25 MCG TABLET (1,000 UNITS) PO (05:55)
[2021-11-23] MEDS: Furosemide 40 MG Tablet PO (05:55)
[2021-11-23] MEDS: Fluconazole 100 MG Tablet PO (06:00)
[2021-11-23] MEDS: Potassium Chloride Oral Tablet 20 MEQ 40 MEQ PO ×2 (08:01→18:11)
[2021-11-23] MEDS: Carvedilol 3.125 MG TABLET PO ×2 (08:02→18:11)
--- NOTE | 2021-11-23 09:59 | CASEMGMT ---
BIMS and PHQ9 interview completed on this date for MDS assessment. DENNIS Renee
[2021-11-23 12:35] VITALS: PULSE 95; RESP 16; O2SAT 96
[2021-11-23 15:37] VITALS: BP 116/62; PULSE 95; RESP 16; TEMP 36.6; O2SAT 96
--- NOTE | 2021-11-23 15:52 | NURSING ---
Updated patient's daughter in law of medication changes and recent lab results. Also informed daughter in law of recent COVID positive staff member. Appreciative of information and update.
[2021-11-23] MEDS: MELATONIN 10 MG TABLET 5 MG PO (20:44)
[2021-11-23] MEDS: Acetaminophen 500 MG Tablet 1000 MG PO (20:45)
[2021-11-23] MEDS: Atorvastatin Calcium 20 MG Tablet PO (20:46)
[2021-11-24] MEDS: APIXABAN 2.5 MG TABLET PO ×2 (05:08→17:48)
[2021-11-24] MEDS: Menthol/Lanolin/Calamine/Znox 113 GM Tube 1 APPLIC TOPICAL ×2 (05:08→17:47)
[2021-11-24] MEDS: Cholecalciferol (VIT D3) 25 MCG TABLET (1,000 UNITS) PO (05:08)
[2021-11-24] MEDS: Fluconazole 100 MG Tablet PO (05:08)
[2021-11-24] MEDS: Furosemide 40 MG Tablet PO (05:08)
[2021-11-24] MEDS: Carvedilol 3.125 MG TABLET PO ×2 (08:30→17:47)
[2021-11-24] MEDS: Potassium Chloride Oral Tablet 20 MEQ 40 MEQ PO ×2 (08:31→17:48)
[2021-11-24 15:09] VITALS: BP 108/67; PULSE 88; RESP 16; TEMP 36.2; O2SAT 100
[2021-11-24] MEDS: MELATONIN 10 MG TABLET 5 MG PO (20:54)
[2021-11-24] MEDS: Atorvastatin Calcium 20 MG Tablet PO (21:02)
[2021-11-24] MEDS: Acetaminophen 500 MG Tablet 1000 MG PO (21:02)
[2021-11-24 21:20] VITALS: PULSE 92; RESP 16; O2SAT 97
[2021-11-25] MEDS: Furosemide 40 MG Tablet PO (05:16)
[2021-11-25] MEDS: APIXABAN 2.5 MG TABLET PO ×2 (05:16→17:58)
[2021-11-25] MEDS: Cholecalciferol (VIT D3) 25 MCG TABLET (1,000 UNITS) PO (05:16)
[2021-11-25] MEDS: Menthol/Lanolin/Calamine/Znox 113 GM Tube 1 APPLIC TOPICAL ×2 (05:19→17:58)
[2021-11-25 06:14] LABS: Absolute Lymphocyte Count 3.55 X10^3/uL (0.83-4.51); Absolute Neutrophil Count 5.2 X10^3/uL (2.0-7.7); Basophil# 0.09 X10^3/uL; Basophil% 0.9 % (0-1); Eosinophil# 0.39 X10^3/uL; Eosinophils% 3.8 % (0-5); Hematocrit 41.6 % (37-47); Hemoglobin 13.5 g/dL (12.0-15.0); Lymphocyte # 3.55 X10^3/ul (0.83-4.51); Lymphocyte % 34.6 % (19-41); Mean Corp Hgb Conc 32.5 g/dL (32-36); Mean Corpuscular Hgb 29.3 pg (27.0-32.0); Mean Corpuscular Volume 90.2 fL (81-99); Mean Platelet Vol. 11.1 fl (6.2-12.0); Monocyte% 9.7 % (0-10); NRBC Flagged by Analyzer 0 % (0-5); Neutrophil % 50.6 % (47-70); Platelet Count 321 K/mm3 (150-450); RBC Distribution Width CV 13.3 % (11.6-14.6); Red Blood Count 4.61 M/mm3 (4.2-5.4); White Blood Count 10.3 K/mm3 (4.4-11.0)
[2021-11-25 06:50] LABS: Anion Gap 6 (5-15); BUN 46 mg/dL (7-18); BUN/Creat Ratio 30.7 RATIO (10-20); Calcium,Total 9.4 mg/dL (8.5-10.1); Chloride 108 mmol/L (98-107); EST Glomerular Filtration Rate 35 mL/min (>60); Est Glom Filt Rate - Afr Amer 42 mL/min (>60); Estimated Creatinine Clearance 23.25 ml/min; Glucose 99 mg/dL (74-106); Potassium 5.5 mmol/L (3.5-5.1); Sodium Level 135 mmol/L (136-145)
[2021-11-25] MEDS: Carvedilol 3.125 MG TABLET PO ×2 (09:21→17:58)
[2021-11-25 09:25] VITALS: BP 120/68; PULSE 110
[2021-11-25] MEDS: Sodium Polystyrene Sulfonate 15 GM/60 ML UDC 30 GM PO (13:52)
--- NOTE | 2021-11-25 14:33 | NURSING ---
UPDATED DAUGHTER IN LAW ON ELEVATED POTASSIUM LEVEL AND ADMINISTRATION OF KAYEXALATE. NOTIFIED THAT K-DUR HAS BEEN STOPPED FOR NOW. DAUGHTER IN LAW VOICES CONCERNS ABOUT KAYEXALATE CAUSING DIARRHEA AND PT NOT BEING ABLE TO DISCHARGE HOME TOMORROW. EMOTIONAL SUPPORT GIVEN, EDUCATED ON NEED FOR KAYEXALATE AND REASSURED THAT IF DIARRHEA OCCURS IT SHOULD NOT LAST LONG. DAUGHTER IN LAW VOICES UNDERSTANDING.
[2021-11-25 15:12] VITALS: BP 104/66; PULSE 109; RESP 16; TEMP 35.7; O2SAT 98
[2021-11-25] MEDS: MELATONIN 10 MG TABLET 5 MG PO (20:08)
[2021-11-25] MEDS: Atorvastatin Calcium 20 MG Tablet PO (20:08)
[2021-11-25 20:17] VITALS: BP 106/65; PULSE 90; RESP 18; TEMP 36.1; O2SAT 98
[2021-11-25 20:18] VITALS: PULSE 95; O2SAT 98
[2021-11-26 05:48] VITALS: BP 112/50; PULSE 95
[2021-11-26] MEDS: Furosemide 40 MG Tablet PO (05:51)
[2021-11-26] MEDS: Menthol/Lanolin/Calamine/Znox 113 GM Tube 1 APPLIC TOPICAL (05:51)
[2021-11-26] MEDS: APIXABAN 2.5 MG TABLET PO (05:51)
[2021-11-26] MEDS: Cholecalciferol (VIT D3) 25 MCG TABLET (1,000 UNITS) PO (05:52)
[2021-11-26 06:04] LABS: Anion Gap 7 (5-15); BUN 42 mg/dL (7-18); Calcium,Total 9.4 mg/dL (8.5-10.1); Chloride 106 mmol/L (98-107); EST Glomerular Filtration Rate 35 mL/min (>60); Est Glom Filt Rate - Afr Amer 42 mL/min (>60); Estimated Creatinine Clearance 23.25 ml/min; Glucose 104 mg/dL (74-106); Sodium Level 137 mmol/L (136-145)
[2021-11-26] MEDS: Carvedilol 3.125 MG TABLET PO (08:25)
[2021-11-26 09:11] VITALS: BP 105/59; PULSE 106; RESP 16; TEMP 36.8; O2SAT 97
--- NOTE | 2021-11-26 12:18 | NURSING ---
spoke with Dr Null regarding RX for coreg 6.25mg BID. pt has been taking 3.125mg BID. changes made to discharge instructions. will update daughter.
== END 2021-11-26 12:30 | disposition home health service (06) | DRG 291 ==
PROVIDERS: Admitting Provider Family Medicine Geriatric Medicine; PCP Family Medicine; Visit Provider Family Medicine Geriatric Medicine
DX: I11.0 Hypertensive heart disease with heart failure (principal); I50.21 Acute systolic (congestive) heart failure; D69.3 Immune thrombocytopenic purpura; E87.1 Hypo-osmolality and hyponatremia; N39.0 Urinary tract infection, site not specified; Z79.01 Long term (current) use of anticoagulants; I48.91 Unspecified atrial fibrillation; E55.9 Vitamin D deficiency, unspecified; E87.6 Hypokalemia; E78.5 Hyperlipidemia, unspecified; Z87.891 Personal history of nicotine dependence; Z79.899 Other long term (current) drug therapy; Z66 Do not resuscitate; Z23 Encounter for immunization
CPT/HCPCS: 0003A; 36415; 71046; 80048; 81001; 85025; 87077; 87086; 87088; 87186; 87426; 91300; 97110; 97116; 97150; 97162; 97166; 97530; 97535; 97802; 99406

== ENCOUNTER → 2021-12-03 | Outpatient (CLI) | payer MEDICARE, BC, SELFPAY ==
[2021-12-03 12:07] LABS: Absolute Neutrophil Count 9.1 X10^3/uL (2.0-7.7); Basophil# 0.05 X10^3/uL; Basophil% 0.4 % (0-1); Eosinophil# 0.08 X10^3/uL; Eosinophils% 0.6 % (0-5); Hematocrit 40.6 % (37-47); Hemoglobin 13.5 g/dL (12.0-15.0); Lymphocyte % 19.7 % (19-41); Mean Corp Hgb Conc 33.3 g/dL (32-36); Mean Corpuscular Hgb 29.2 pg (27.0-32.0); Mean Corpuscular Volume 87.9 fL (81-99); Monocyte% 7.1 % (0-10); NRBC Flagged by Analyzer 0 % (0-5); Neutrophil # 9.14 X10^3/uL (2.7-7.7); Neutrophil % 71.8 % (47-70); Platelet Count 269 K/mm3 (150-450); RBC Distribution Width CV 13.2 % (11.6-14.6); RBC Distribution Width SD 42.6 fl (35.1-43.9); Red Blood Count 4.62 M/mm3 (4.2-5.4); White Blood Count 12.7 K/mm3 (4.4-11.0)
[2021-12-03 12:28] LABS: BNP,B-Type NATRIURETIC PEPTIDE 776.5 pg/mL (0-100)
[2021-12-03 12:33] LABS: Anion Gap 8 (5-15); BUN 29 mg/dL (7-18); BUN/Creat Ratio 18.5 RATIO (10-20); Calcium,Total 9.2 mg/dL (8.5-10.1); Chloride 100 mmol/L (98-107); Creatinine, Serum 1.57 mg/dL (0.55-1.02); EST Glomerular Filtration Rate 33 mL/min (>60); Est Glom Filt Rate - Afr Amer 40 mL/min (>60); Glucose 110 mg/dL (74-106); Potassium 3.5 mmol/L (3.5-5.1); Sodium Level 135 mmol/L (136-145)
== END | disposition home or self-care (01) ==
LOC: LAB 11:42
PROVIDERS: PCP Family Medicine; Referring Provider Nurse Practitioner Family; Visit Provider Nurse Practitioner Family
DX: I50.21 Acute systolic (congestive) heart failure (principal); I48.91 Unspecified atrial fibrillation; R06.09 Other forms of dyspnea; E55.9 Vitamin D deficiency, unspecified; R53.81 Other malaise
CPT/HCPCS: 36415; 80048; 83880; 85025

== ENCOUNTER 2021-12-11 04:21 | Inpatient (IN) | payer MEDICARE, BC, SELFPAY ==
[2021-12-11] VITALS (9 sets, daily range): BP systolic 104–132; BP diastolic 69–89; PULSE 96–131; RESP 18–20; TEMP 36.3–36.6; O2SAT 97–99; BMI 26.3; BMI 26.0
--- NOTE | 2021-12-11 04:43 | EKG12_ITS ---
Test Reason : DYSRHYTHMIA Blood Pressure : / mmHG Vent. Rate : 119 BPM Atrial Rate : 119 BPM P-R Int : 160 ms QRS Dur : 148 ms QT Int : 372 ms P-R-T Axes : 000 071 089 degrees QTc Int : 523 ms Sinus tachycardia Left bundle branch block Abnormal ECG Confirmed by ROCÍO LARSEN, NHUNG ([id number]), pictures editor DAMARIS RAINES ([id number]) on 12/13/2021 10:00:26 AM Referred By: DODIE Confirmed By:NHUNG ALFORD MD
--- NOTE | 2021-12-11 04:43 | RAD_ITS ---
STUDY: X-RAY CHEST REASON FOR EXAM: Female, 86 years old. SOB TECHNIQUE: Single AP portable view of the chest. COMPARISON: 11/04/2021 FINDINGS: Increased interstitial edema throughout suggesting vascular congestion/CHF. No acute effusions or consolidation. Linear fluid in the right transverse fissure. There is mild cardiac enlargement. Normal mediastinum and gely. Normal visualized pulmonary arteries. Normal visualized aortic arch and descending thoracic aorta. There are diffuse degenerative changes of the visualized thoracic spine. Normal visualized ribs, clavicles, and shoulders. There is no demonstrated abnormality of the visualized soft tissue structures of the upper abdomen. RAD/Chest 1 View (Portable) IMPRESSION: Interstitial prominence throughout suggesting pulmonary vascular congestion/CHF. Electronically Signed: Cornell Casillas DO at 5:23 EDT ,
--- NOTE | 2021-12-11 04:44 | EX.ED.DYSGE1 ---
HPI History of Present Illness Chief Complaint: General Illness Informant: patient and family Narrative Narrative: Story is somewhat from patient mostly from daughter. Evidently this patient has been sick since early October. She was diagnosed with CHF and A. fib which were new diagnoses at that time. She was in the hospital for about 5 days. She was then in TCU for about 3 weeks. She has been home for about 2 weeks. She has home health and visiting nurse. Patient had an episode of some rectal bleeding on Friday. It was repeated on Friday. Eliquis has been held for 3 doses because of this. But the bleeding has not recurred. This is evidently been an off-and-on phenomenon thought to be due to hemorrhoids. Patient now is not having much of an appetite. She has not been eating drinking that much. Daughter feels she is a little bit weaker and seems almost a little confused compared to normal. She is taking Lasix at 40 a day it sounds like still. I have no reported fevers. There is questions if she is a little short of breath or not. Patient is extremely hard of hearing and difficult to give a story. [facility] Medical History (Updated 12/11/21 @ 06:[address] Addison Herrera MD) Atrial fibrillation Cardiomyopathy CHF (congestive heart failure) Fracture, humerus closed, shaft Humerus fracture Hyperlipidemia Hypertension Hypokalemia ITP PAD (peripheral artery disease) Home Medications cholecalciferol (vitamin D3) 25 mcg (1,000 unit) tablet 1,000 unit PO DAILY supplement 06/22/14 [History Last Taken 11/03/21] docusate sodium 100 mg capsule 100 mg PO DAILY PRN PRN Constipation 06/22/14 [History Last Taken 11/01/21] acetaminophen 500 mg tablet (Acetaminophen Pain Relief) 1,000 mg PO Q6H PRN Pain (Scale Score 1-10) 10/29/21 [History Last Taken Unknown] melatonin 5 mg tablet 5 mg PO QHS PRN Sleep 10/29/21 [History Last Taken 10/28/21] atorvastatin 20 mg tablet 20 mg PO QHS Colesterol 30 days #30 tabs 11/20/21 [Rx Last Taken Unknown] apixaban 2.5 mg tablet (Eliquis) 2.5 mg PO BID Anticoagulant #180 tabs 12/03/21 [Rx Last Taken Unknown] carvedilol 6.25 mg tablet 3.125 mg PO BIDCM 12/03/21 [History Last Taken Unknown] ondansetron HCl 4 mg tablet 4 mg PO Q8H 12/03/21 [History Last Taken Unknown] furosemide 40 mg tablet 40 mg PO DAILY 30 days #30 tabs 12/05/21 [Rx Last Taken Unknown] potassium chloride 20 mEq tablet,extended release(part/cryst) (Klor-Con M) 20 meq PO .every other day Cardiac health 30 days #30 tabs 12/05/21 [Rx Last Taken Unknown] Allergy/AdvReac Type Severity Reaction Status Date / Time Tetanus Vaccines and Toxoid Allergy Low Verified 12/03/21 11:46 [Tetanus Vaccines & Toxoid] platelets Family History Brother Heart disease Sister Heart disease Mother CVA (cerebral vascular accident) Sister Cancer Surgical History H/O eye surgery H/O splenectomy H/O: hysterectomy History of laparoscopic cholecystectomy Social History household members: none Smoking Status: Former smoker alcohol intake: never substance use type: does not use ROS ROS ED Constitutional Constitutional ED: Denies fever(s) Eyes Eyes: Denies change in vision ENT ENT ED: Denies rhinorrhea Cardiovascular Cardiovascular: Denies chest pain Respiratory/Chest Respiratory/Chest: Reports dyspnea Gastrointestinal Gastrointestinal: Reports other Details: Daughter states that her mom complains of abdominal pain off and on for the last month. Its not an issue at this moment. ; Denies nausea or vomiting Genitourinary Genitourinary ED: Denies dysuria Musculoskeletal Musculoskeletal: Denies myalgias Integumentary Denies rash Neurologic Neurologic: Denies headache(s) Hematologic/Lymphatic Hematologic/Lymphatic: Reports anemia, easy bleeding and easy bruising Allergic/Immunologic Allergic/Immunologic ED: Denies urticaria EXAM Physical Exam Const Vital Signs: 12/11/21 04:22 12/11/21 04:31 Temperature 97.4 F L Temperature Source Temporal Pulse Rate 131 H Respiratory Rate 20 H Respiratory Effort Normal Non-Labored Respiratory Pattern Normal Blood Pressure 132/88 H Blood Pressure Mean 102 Pulse Ox 99 Oxygen Delivery Method Room Air Positive well nourished and well developed Constitutional Narrative: Patient is nontoxic but she does not look like she feels well. She looks mildly pale to me but her conjunctive and palms are not notably pale. General Appearance ED: well developed and pallor; Negative for cyanotic or diaphoretic HEENT Reports dry mucous membranes HEENT Narrative: Mucous membranes do seem quite dry. Mouth ED: Yes dry mucous membranes Mouth: dry mucous membranes Neck no lymphadenopathy and no JVD Resp normal respiratory effort Resp Narrative: Very slight rales at the bases but oxygen saturation is normal. Auscultation: rales; Negative for rhonchi or wheezes Cardio regular rhythm Rate: tachycardic and other Other Details: Rhythm seems regular on the monitor. But her heart rate varies anywhere from about 1 10-1 30s. GI normal to inspection, nondistended, normoactive bowel sounds, non-tender and non-distended Back/Spine no CVA tenderness Neuro Neuro Narrative: Awake alert. Very hard of hearing. Daughter states that she is not as quick as she normally is and seems a bit confused from her baseline. Psych Attitude: No agitated Skin General Skin Exam: pallor MDM MDM MDM Narrative Medical decision making narrative: Patient's blood work showed minimal elevation white count. Hemoglobin is actually normal. Platelets were good. Potassium was normal. Sodium was minimally low. BUN and creatinine were slightly elevated but a bit improved from some past ones. LFTs were okay. Troponins negative. BNP was very high at 1413. This is higher than her prior. Lactate was negative. Chest x-ray is consistent with some congestion with interstitial fluid and fluid in major fissure. Patient initially been given a small bolus of fluids. The report is that she was not eating or drinking for about 2 days. Her heart rate was tachycardic and her mouth was dry. I have gotten further history from her daughter. Evidently this patient's heart rate has been over 105 for at least 2 to 3 weeks. Daughter states that she remembers once in the hospital it was at 80 but generally it is always been over 100. At home it varies anywhere from about 120-170. This is evidently one of the difficulties they have been having. They tried to treat this with carvedilol but if they use a higher dose her blood pressure goes too low. She is getting the Lasix at home now. Patient is really not mobile. She states she just feels too weak to get up. Her saturations vary anywhere from 99 but will drop occasionally to 90 in the bed. She does have crackles at her bases. We will give a bit of Lasix here. I will also give her her morning dose of carvedilol that she is due for. Lab Data Attestation: I reviewed the patient's lab results. Labs: Laboratory Results - last 24 hr 12/11/21 12/11/21 12/11/21 04:30 04:30 04:30 WBC 12.0 H RBC 4.80 Hgb 14.1 Hct 41.7 MCV 86.9 MCH 29.4 MCHC 33.8 RDW Std Deviation 42.4 RDW Coeff of Nam 13.4 Plt Count 231 MPV 10.8 Immature Gran % (Auto) 0.300 Neut % (Auto) 67.3 Lymph % (Auto) 23.1 [place] % (Auto) 7.9 Eos % (Auto) 1.0 Baso % (Auto) 0.4 Absolute Neuts (auto) 8.1 H Absolute Lymphs (auto) 2.76 Nucleated RBC % 0 Sodium 131 L Potassium 4.4 Chloride 99 Carbon Dioxide 22.0 Anion Gap 10 BUN 21 H Creatinine 1.40 H Estim Creat Clear Calc 24.91 Est GFR (MDRD) Af Amer 46 L Est GFR (MDRD) Non-Af 38 L BUN/Creatinine Ratio 15.0 Glucose 127 H Lactic Acid Calcium 8.9 Total Bilirubin 0.70 AST 30 ALT 58 H Alkaline Phosphatase 64 Troponin I High Sens 19 B-Natriuretic Peptide 1413.5 H Total Protein 6.0 L Albumin 3.2 Globulin 2.8 Albumin/Globulin Ratio 1.1 12/11/21 04:52 WBC RBC Hgb Hct MCV MCH MCHC RDW Std Deviation RDW Coeff of Nam Plt Count MPV Immature Gran % (Auto) Neut % (Auto) Lymph % (Auto) [place] % (Auto) Eos % (Auto) Baso % (Auto) Absolute Neuts (auto) Absolute Lymphs (auto) Nucleated RBC % Sodium Potassium Chloride Carbon Dioxide Anion Gap BUN Creatinine Estim Creat Clear Calc Est GFR (MDRD) Af Amer Est GFR (MDRD) Non-Af BUN/Creatinine Ratio Glucose Lactic Acid 1.5 Calcium Total Bilirubin AST ALT Alkaline Phosphatase Troponin I High Sens B-Natriuretic Peptide Total Protein Albumin Globulin Albumin/Globulin Ratio Radiography Diagnostic Testing: Clinical Impression(s) from Imaging Studies Chest X-Ray 12/11/21 04:43 IMPRESSION: Interstitial prominence throughout suggesting pulmonary vascular congestion/CHF. Electronically Signed: Cornell Casillas DO at 5:23 EDT , Discharge Plan Triage Chief Complaint: General Illness ED Provider: Addison Herrera Dx/Rx/DC Orders Clinical Impression: CHF (congestive heart failure), Generalized weakness Prescriptions: No Action carvedilol 6.25 mg tablet 3.125 mg PO BIDCM ondansetron HCl 4 mg tablet 4 mg PO Q8H Eliquis 2.5 mg tablet 2.5 mg PO BID Qty: 180 4RF docusate sodium 100 MG capsule 100 mg PO DAILY PRN PRN (Reason: Constipation) Label Comments: constipation cholecalciferol (vitamin D3) 1,000 UNIT tablet 1,000 unit PO DAILY Label Comments: supplement melatonin 5 mg Tablet 5 mg PO QHS PRN (Reason: Sleep) acetaminophen [Acetaminophen Pain Relief] 500 mg Tablet 1,000 mg PO Q6H PRN (Reason: Pain (Scale Score 1-10)) atorvastatin 20 mg tablet 20 mg PO QHS 30 Days Qty: 30 0RF potassium chloride [Klor-Con M20] 20 mEq tablet,ER particles/crystals 20 meq PO .every other day 30 Days Qty: 30 2RF furosemide 40 mg tablet 40 mg PO DAILY 30 Days Qty: 30 1RF Primary Care Provider: Alexys Bond Referrals: Alexys Bond MD [Primary Care Provider] -
[2021-12-11 04:52] LABS: Absolute Lymphocyte Count 2.76 X10^3/uL (0.83-4.51); Absolute Neutrophil Count 8.1 X10^3/uL (2.0-7.7); Basophil# 0.05 X10^3/uL; Basophil% 0.4 % (0-1); Eosinophil# 0.12 X10^3/uL; Hematocrit 41.7 % (37-47); Hemoglobin 14.1 g/dL (12.0-15.0); Lymphocyte # 2.76 X10^3/ul (0.83-4.51); Lymphocyte % 23.1 % (19-41); Mean Corp Hgb Conc 33.8 g/dL (32-36); Mean Corpuscular Hgb 29.4 pg (27.0-32.0); Mean Corpuscular Volume 86.9 fL (81-99); Mean Platelet Vol. 10.8 fl (6.2-12.0); Monocyte# 0.95 X10^3/uL; Monocyte% 7.9 % (0-10); NRBC Flagged by Analyzer 0 % (0-5); Neutrophil # 8.05 X10^3/uL (2.7-7.7); Neutrophil % 67.3 % (47-70); Platelet Count 231 K/mm3 (150-450); RBC Distribution Width CV 13.4 % (11.6-14.6); RBC Distribution Width SD 42.4 fl (35.1-43.9)
[2021-12-11 05:09] LABS: BNP,B-Type NATRIURETIC PEPTIDE 1413.5 pg/mL (0-100)
[2021-12-11 05:10] LABS: ALB/GLOB Ratio 1.1 RATIO (0.9-2.4); AST(SGOT) 30 U/L (15-37); Alanine Aminotransfer ALT/SGPT 58 U/L (13-56); Albumin, Serum 3.2 g/dL (3.2-5.0); Alkaline Phosphatase 64 U/L (45-117); Anion Gap 10 (5-15); BUN 21 mg/dL (7-18); Calcium,Total 8.9 mg/dL (8.5-10.1); Chloride 99 mmol/L (98-107); EST Glomerular Filtration Rate 38 mL/min (>60); Est Glom Filt Rate - Afr Amer 46 mL/min (>60); Estimated Creatinine Clearance 24.91 ml/min; Globulin 2.8 g/dL (2.2-4.2); Glucose 127 mg/dL (74-106); Potassium 4.4 mmol/L (3.5-5.1); Sodium Level 131 mmol/L (136-145); Troponin-I HS 19 pg/mL (3.0-54.0)
[2021-12-11 05:38] LABS: Lactic Acid 1.5 mmol/L (0.4-1.9)
--- NOTE | 2021-12-11 06:18 | CT_ITS ---
STUDY: CT ABDOMEN AND PELVIS WITHOUT CONTRAST REASON FOR EXAM: Female, 86 years old. pain. Weakness, nausea, blood in stool. RADIATION DOSAGE (If Supplied By Facility): CTDIvol = ( 6.15 ) mGy, DLP = ( 302.84 ) mGycm TECHNIQUE: Transaxial images were obtained from the dome of the diaphragm to the symphysis pubis without oral contrast, and without intravenous contrast. Sagittal and coronal images were reconstructed. Individualized dose optimization techniques were used for this CT. COMPARISON: Abdominal ultrasound March 08, 2017. CTA chest October 29, 2021. Chest x-ray December 11, 2021. FINDINGS: Bilateral pleural effusions right greater than left not significantly changed, at the lung bases, since the prior study. Mild cardiomegaly. Normal liver. The gallbladder is not visualized compatible with history of cholecystectomy. 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 Normal pancreas. Normal bilateral adrenal glands. No hydronephrosis. Renal vascular calcifications. Normal visualized stomach. Normal small intestine. Normal colon. Sigmoid colon grossly normal but not well distended limiting evaluation of wall thickening. Appendix not visualized compatible with history of appendectomy. There is atherosclerotic calcification of the abdominal aorta, and major branch vessels without a demonstrated aneurysm. Normal inferior vena cava. Normal retroperitoneum. Normal urinary bladder. Uterus is not visualized compatible with history of hysterectomy. No adnexal masses seen. Normal abdominal wall. Degenerative changes of the lower thoracic and lumbar spine. CT/Abdomen/Pelvis without Cont IMPRESSION: No acute findings in the abdomen or pelvis. No intra-abdominal free air or free fluid collections. Bilateral pleural effusions unchanged. Atherosclerosis of the abdominal aorta and major branch vessels. Mild cardiomegaly. Electronically Signed: Jp Childress MD at 7:37 EDT Reading Location ID and State: [phone] / , Service support ,
[2021-12-11] MEDS: Carvedilol 3.125 MG TABLET PO ×2 (06:41→17:20)
[2021-12-11] MEDS: Furosemide 20 MG/2 ML VIAL IV (06:41)
[2021-12-11 07:04] LABS: Mucous, Urine 0 SEEN /hpf (<or=2+)
[2021-12-11 07:10] LABS: Color, Urine Yellow (Yellow); Glucose, Dipstick Normal (Normal); Ketone-Dipstick 5 mg/dl (Negative); Leukocyte Esterase-Dipstick 100 /ul (Negative); Nitrite-Dipstick Negative (Negative); Occult Blood-Urine 50 /ul (Negative); Protein-Dipstick 30 mg/dl (Negative); Specific Gravity, Urine 1.015 (1.002-1.030); Urine Bilirubin Dipstick Negative (Negative); Urine Clarity Clear (Clear); Urine Urobilinogen Normal (Normal)
[2021-12-11 07:17] LABS: Bacteria 1+ /hpf (None Seen); Hyaline Cast 0-5 SEEN /lpf (0-5); Red Blood Cells-Urine 0-5 SEEN /hpf (0-5); Squamous Epithelial Cells - UA 10-25 SEEN /hpf (5-10); White Blood Cells 10-25 SEEN /hpf (0-5)
--- NOTE | 2021-12-11 07:28 | NURSING ---
MED SURG OBS JUAN RAMON CHF, GENERALIZED WEAKNESS, INABILITY TO AMBULATE
--- NOTE | 2021-12-11 08:39 | PCM.HP.STD ---
[facility] - General General Date of Admission: 12/11/21 Date of Service: 12/11/21 Chief Complaint: weakness [facility] Narrative DELORES MONTOYA, is a 86 F who presents with 1 day history of weakness. Patient was recently in the transitional care unit and discharged home roughly 2 weeks ago. Much of the history is obtained through the patient's aibemosp-oc-utj who is present at bedside. Patient was to get historian because she has difficulty hearing and she does not have her hearing aids available. Patient had been having some rectal bleeding starting last week and was advised to hold her apixaban. Thought to be due to hemorrhoids. Patient was doing well over the weekend but then had recently put on 3 pounds and was advised to take additional furosemide. Then today was just feeling weak. Patient brought to the emergency room and evaluated. Patient had a CAT scan of her abdomen pelvis that showed no acute intra-abdominal process but did show pleural effusions are unchanged from previous. Patient's BNP was elevated at 1413. Patient was noted to be tachycardic as well. Patient did receive her dose of carvedilol 3.125 mg as well as 20 mg of IV furosemide. Patient has been on Entresto for her heart failure but was stopped due to low blood pressure. Patient is on potassium tablets for furosemide that she does take but cannot tolerate those. Additionally, in the emergency room patient's potassium was 4.4 and her hemoglobin was 14.1. [facility] Medical History (Updated 12/11/21 @ 08:[address] Mino Saldana, ) Atrial fibrillation Cardiomyopathy CHF (congestive heart failure) Fracture, humerus closed, shaft HFrEF (heart failure with reduced ejection fraction) Humerus fracture Hyperlipidemia Hypertension Hypokalemia ITP PAD (peripheral artery disease) Home Medications cholecalciferol (vitamin D3) 25 mcg (1,000 unit) tablet 1,000 unit PO DAILY supplement 06/22/14 [History Last Taken 11/03/21] docusate sodium 100 mg capsule 100 mg PO DAILY PRN PRN Constipation 06/22/14 [History Last Taken 11/01/21] acetaminophen 500 mg tablet (Acetaminophen Pain Relief) 1,000 mg PO Q6H PRN Pain (Scale Score 1-10) 10/29/21 [History Last Taken Unknown] melatonin 5 mg tablet 5 mg PO QHS PRN Sleep 10/29/21 [History Last Taken 10/28/21] atorvastatin 20 mg tablet 20 mg PO QHS Colesterol 30 days #30 tabs 11/20/21 [Rx Last Taken Unknown] apixaban 2.5 mg tablet (Eliquis) 2.5 mg PO BID Anticoagulant #180 tabs 12/03/21 [Rx Last Taken Unknown] carvedilol 6.25 mg tablet 3.125 mg PO BIDCM 12/03/21 [History Last Taken Unknown] ondansetron HCl 4 mg tablet 4 mg PO Q8H 12/03/21 [History Last Taken Unknown] furosemide 40 mg tablet 40 mg PO DAILY 30 days #30 tabs 12/05/21 [Rx Last Taken Unknown] potassium chloride 20 mEq tablet,extended release(part/cryst) (Klor-Con M) 20 meq PO .every other day Cardiac health 30 days #30 tabs 12/05/21 [Rx Last Taken Unknown] Allergy/AdvReac Type Severity Reaction Status Date / Time Tetanus Vaccines and Toxoid Allergy Low Verified 12/03/21 11:46 [Tetanus Vaccines & Toxoid] platelets Family History Brother Heart disease Sister Heart disease Mother CVA (cerebral vascular accident) Sister Cancer Surgical History H/O eye surgery H/O splenectomy H/O: hysterectomy History of laparoscopic cholecystectomy Social History household members: none Smoking Status: Former smoker alcohol intake: never substance use type: does not use ROS ROS Narrative Hard of hearing. Nausea, no vomiting. All review of systems were negative except as mentioned above in the history of present illness and the other review of systems. Vital Signs Vital Signs Vital Signs: 12/11/21 04:22 12/11/21 04:31 12/11/21 06:25 Temperature 36.3 C L Temperature Source Temporal Pulse Rate 131 H 119 H Respiratory Rate 20 H 20 H Respiratory Effort Normal Non-Labored Respiratory Pattern Normal Blood Pressure 132/88 H 123/89 H Blood Pressure Mean 102 100 Pulse Ox 99 99 Oxygen Delivery Method Room Air Room Air 12/11/21 08:00 Temperature 36.3 C L Temperature Source Temporal Pulse Rate 119 H Respiratory Rate 20 H Respiratory Effort Respiratory Pattern Blood Pressure 123/89 H Blood Pressure Mean 100 Pulse Ox 99 Oxygen Delivery Method Room Air Weight Weight: 69.6 kg Body Mass Index (BMI) 26.3 Physical Exam Const alert and no apparent distress Constitutional Narrative: Hard of hearing HEENT normocephalic Neck no lymphadenopathy Resp normal respiratory effort, no retractions and no use of accessory muscles Cardio Cardio Narrative: Tachycardic GI normal to inspection, nondistended, normoactive bowel sounds, soft to palpation, non-tender and non-distended Extremity normal to inspection and no clubbing, cyanosis or edema Neuro Sensorium / Orientation: awake and alert Speech: speech normal Psych affect normal Results Lab / Micro Data Attestation: I reviewed the patient's lab results. Result Diagrams: 12/11/21 04:30 12/11/21 04:30 Labs: Laboratory Results - last 24 hr 12/11/21 04:30: WBC 12.0 H, RBC 4.80, Hgb 14.1, Hct 41.7, MCV 86.9, MCH 29.4, MCHC 33.8, RDW Std Deviation 42.4, RDW Coeff of Nam 13.4, Plt Count 231, MPV 10.8, Immature Gran % (Auto) 0.300, Neut % (Auto) 67.3, Lymph % (Auto) 23.1, [place] % (Auto) 7.9, Eos % (Auto) 1.0, Baso % (Auto) 0.4, Absolute Neuts (auto) 8.1 H, Absolute Lymphs (auto) 2.76, Nucleated RBC % 0 12/11/21 04:30: Sodium 131 L, Potassium 4.4, Chloride 99, Carbon Dioxide 22.0, Anion Gap 10, BUN 21 H, Creatinine 1.40 H, Estim Creat Clear Calc 24.91, Est GFR (MDRD) Af Amer 46 L, Est GFR (MDRD) Non-Af 38 L, BUN/Creatinine Ratio 15.0, Glucose 127 H, Calcium 8.9, Total Bilirubin 0.70, AST 30, ALT 58 H, Alkaline Phosphatase 64, Troponin I High Sens 19, Total Protein 6.0 L, Albumin 3.2, Globulin 2.8, Albumin/Globulin Ratio 1.1 12/11/21 04:30: B-Natriuretic Peptide 1413.5 H 12/11/21 04:52: Lactic Acid 1.5 12/11/21 06:55: Urine Color Yellow, Urine Clarity Clear, Urine pH 6.0, Ur Specific [place] 1.015, Urine Protein 30 H, Urine Glucose (UA) Normal, Urine Ketones 5 H, Urine Occult Blood 50 H, Urine Nitrite Negative, Urine Bilirubin Negative, Urine Urobilinogen Normal, Ur Leukocyte Esterase 100 H, Urine RBC 0-5 SEEN, Urine WBC 10-25 SEEN, Ur Squamous Epith Cells 10-25 SEEN, Urine Bacteria 1+, Hyaline Casts 0-5 SEEN, Urine Mucus 0 SEEN Micro: Microbiology 12/11/21 04:55 Nasal Secretion SARS-CoV-2 & FLU Antigen (Rapid) - Final 12/11/21 04:56 Stool Stool Occult Blood (GELY) - Final Occult Blood Positive EKG Initial EKG: Attestation: I personally reviewed and interpreted this EKG as follows: Interpretation: Tachycardic. Left bundle branch block. Radiology Impression Chest X-Ray 12/11/21 04:43 IMPRESSION: Interstitial prominence throughout suggesting pulmonary vascular congestion/CHF. Electronically Signed: Cornell Casillas DO at 5:23 EDT , Abdomen/Pelvis CT 12/11/21 06:18 IMPRESSION: No acute findings in the abdomen or pelvis. No intra-abdominal free air or free fluid collections. Bilateral pleural effusions unchanged. Atherosclerosis of the abdominal aorta and major branch vessels. Mild cardiomegaly. Electronically Signed: Jp Childress MD at 7:37 EDT Reading Location ID and State: [id number] / , Service support , Assessment & Plan Assessment/Plan (1) Generalized weakness: PLAN: PT OT evaluate and treat Did discuss with patient's, though not sure how much she was able to hear as well as her zpgtgwuo-ic-rrc. They do not want to return to the transitional care unit and are not really interested in a nursing home facility. I did talk to them about other options such as staying with the jbifzsqf-mo-tvi or other family members but encouraged them to discuss among some cells further as well as with case management. The patient's riulqmic-xx-hfb is a nurse and geriatrics and is not familiar with people declining rapidly and they are doing well. But did state that this does happen particularly for elderly with multiple medical comorbidities. We will evaluate to see if there is any underlying issues that may be contributing to this. Thus far patient's urinalysis is negative and no pneumonia. (2) HFrEF (heart failure with reduced ejection fraction): PLAN: Not sure there is really an acute component and this may be more chronic as her imaging appears to be relatively stable. EF of 30% Nonischemic cardiomyopathy Currently on room air and in no respiratory distress Patient did receive IV furosemide in the emergency room Patient's hdrehefu-hb-bej is just upset and feeling the patient is pointed cracks in regards to her overall management., Did advise that there are failures not primary reason for her admission as she is currently hemodynamically stable, but stated that we would be addressing this while she was here and will have cardiology see patient in the hospital. I did discuss the case with Dr. Oglesby who will be seeing the patient later today. (3) GI bleed: PLAN: According to the patient's vpafauvj-cj-wgu patient has hemorrhoids. Heme positive here Abdominal CT was unremarkable for any acute intra-abdominal process. Hold apixaban for now Currently, the patient hemoglobin is stable. If ongoing, may consider GI evaluation the patient and family are amenable. (4) Atrial fibrillation: QUALIFIERS: Atrial fibrillation type: unspecified Qualified Code(s): I48.91 - Unspecified atrial fibrillation PLAN: Was tachycardic. We will monitor on telemetry. Continue with carvedilol. (5) Pleural effusion: PLAN: Reviewed CTA of the chest that she had performed on October [address] abdomen pelvis. Pleural effusions look more or less the same. These are most likely transudative due to heart failure. Given that patient is currently hemodynamically stable and not in any respiratory distress I do not feel a thoracentesis would be necessary at this time. PLAN: Plan VTE prophylaxis: SCDs Advance care planning: Spent an additional 60 minutes discussing with the patient's zeofsrao-zi-gwg about CODE STATUS, hospice and palliative care. The patient's kwtdrbbo-ls-fwn who initially stated the patient to be DNR comfort care. I explained to her that typically reserved for more end-of-life and comfort measures. Verified that she does wish for the patient to receive medical treatment and therefore I recommended DNR Comfort Care arrest DO NOT INTUBATE. She did agree to that. I did state that she can certainly change her mind at any time and she quickly responded I know. She did inquire about hospice. Told her that I do not feel that the patient is hospice appropriate as I do not feel that her life expectancy is 6 months or less but palliative care may be an option. Charges/Coding Visit Charges Inpatient E&M: 89549 Init Hosp L3 Procedures Hospitalists Procedures: 24009 Advncd Care Plan 30 Min
[2021-12-11] MEDS: Furosemide 40 MG Tablet PO (09:56)
[2021-12-11] MEDS: Cholecalciferol (VIT D3) 25 MCG TABLET (1,000 UNITS) PO (09:56)
--- NOTE | 2021-12-11 10:06 | CASEMGMT ---
Patient has a Healthcare Power of Data Entry Clerk and a Healthcare Living Will on file at [facility]. Patient's daughter in law Cynthia is her Healthcare Power of Data Entry Clerk. Garima JENKINS
[2021-12-11 10:51] LABS: Troponin-I HS 32 pg/mL (3.0-54.0)
[2021-12-11] MEDS: Acetaminophen 500 MG Tablet 1000 MG PO ×2 (11:33→20:29)
--- NOTE | 2021-12-11 13:40 | CASEMGMT ---
FLAKO ACEVEDO assessment: Face to Face with patient for initial transition planning/care coordination assessment. RN KRISTINA introduced self and role at [facility], pt voices understanding and consents to assessment. Pt is A/Ox4 and answers questions appropriately. Pt is sitting up in bed in no distress on 2L nc.? Pt is hard of hearing. Care providers, pharmacy,?and demographics verified. ? Presentation: Pt c/o weakness, nausea, blood in stool Admitting dx: CHF, weakness PCP: Ronda Specialists: Reny, cardio [facility]erred [facility]acy[facility] Insurance: MCR A/B, [place] Prescription Benefit:? Yes-MCR D Living Will/HPOA: Pt does have LW/HPOA and is aware that they are on file at [facility]. Pt's uwjgfrwy-ha-onb, Cynthia Giron, is HPOA. LNOK: Cynthia Giron, qqqpjmys-ls-zyj/HPOA; Johnathan Giron, son Living Arrangements: Pt lives alone in mobile home with 1 step in and states no concerns at home. Pt was recently d/c'd from TCU and pt states DIL stayed with her for first week or so but pt has been on own since and DIL calls and checks on her daily. Pt states has been independent with ADL's but family does bring meals at times. Pt states son/DIL live about 20-25 miles away. Transportation: Pt states family has been driving since d/c from TCU and states no transportation concerns. DME/HHC: Pt has a walk-in shower, cane, and walker. Pt declines need for any further DME. Pt states is active with [facility] for SN/PT and has been to [facility]/TCU in past. Pt is unsure of going home at time of discharge. Pt is retired. Pt states does not smoke cigarettes or drink ETOH. Pt voices no further concerns/needs. CM to follow for therapy notes, home oxygen testing, and any further discharge planning/needs. Advised pt to ask for CM if any further questions/concerns/needs arise, voices understanding. Pt Goal: Home Plan: TBD, pending therapy notes, O2 testing [place]
[2021-12-11 17:13] LABS: Troponin-I HS 33 pg/mL (3.0-54.0)
--- NOTE | 2021-12-11 18:08 | PCM.CONS.C ---
Assessment & Plan Assessment/Plan (1) HFrEF (heart failure with reduced ejection fraction): PLAN: The patient has a history of heart failure with reduced ejection fraction. At the present time it appears she has acute on chronic systolic mediated CHF. She will continue to be monitored. She has already undergone noninvasive and invasive valuation. She Christian any medical management. This will include diuretic therapy. (2) Non-ischemic cardiomyopathy: PLAN: The patient has a history of non-CAD related cardiomyopathy. She has recently undergone noninvasive and invasive evaluation. She will need to continue medical management. She has been on beta-kiera therapy with carvedilol/Coreg. An attempt was made to optimize her medications. This may include nitrates as needed, her beta-blockers with adjustment as tolerated, diuretics, afterload reducing agents, etc. (3) CAD (coronary artery disease): PLAN: The patient has a history of nonobstructive CAD. She will continue risk factor evaluation and care. (4) Atrial fibrillation: QUALIFIERS: Atrial fibrillation type: unspecified Qualified Code(s): I48.91 - Unspecified atrial fibrillation PLAN: The patient appears to have findings compatible with atrial fibrillation/flutter. This is not a new diagnosis for her. She should continue medical therapy for rate control and anticoagulation unless otherwise contraindicated. (5) HLD (hyperlipidemia): PLAN: The patient should continue lipid-lowering therapy based upon her cardiovascular condition as best as possible. (6) Hypertension: PLAN: His blood pressure can be followed with adjustment of her medications as deemed appropriate. (7) Generalized weakness: PLAN: It is unclear whether the patient's sensation of weakness is related to her underlying atrial dysrhythmias or her acute on chronic systolic mediated CHF superimposed upon her history of an underlying non-CAD related cardiomyopathy with diminished LV systolic function versus noncardiovascular issues. From a cardiac standpoint she will continue optimization of her medications as best as possible. She may need to be evaluated for noncardiovascular issues as well. (8) Abdominal discomfort: PLAN: She does have abdominal discomfort. The etiology is unclear at this time. It may not be unreasonable to assess her amylase levels and lipase levels for any obvious evidence of pancreatic involvement. If those studies are unremarkable then she may need further noncardiac evaluation of her abdominal discomfort with additional diagnostic studies as deemed appropriate Addt'l Comments The patient's case has been discussed and reviewed with Dr. Saldana. This note was generated using a voice recognition system and there may be incorrect words, spelling or punctuation that were not noted when reviewing the office note prior to saving. 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 The patient states that yesterday she began to not feel well . She stated she felt weak. Last night she felt more short of breath and dyspneic and had symptoms compatible with orthopnea. She was brought to the emergency department by the EMS system. She was evaluated and felt to have concerns of acute on chronic systolic mediated CHF. She was subsequent brought into the hospital for further evaluation and care. In the emergency department she was evaluated. Her high-sensitivity troponin I level was negative. Her BNP level was elevated. Her creatinine level remains chronically elevated. Her ECG suggested findings compatible with an underlying atrial fibrillation/flutter with a left bundle branch block pattern. Her chest x-ray suggested increased pulmonary vascularity compatible with CHF. She denies chest discomfort. She states she has been having chronic lower abdominal discomfort for at least 2 months. She denies ongoing nausea or emesis. She states she has had intermittent loose bowel movements. There has been no report of ongoing palpitations or rapid rates that she is aware of. She has not had any near-syncope or syncope. She is also not developed any lower extremity peripheral pitting edema. She states she is taking her medications appropriately. [facility] Medical History (Updated 12/11/21 @ 18:[address] Issa Oglesby MD) Atrial fibrillation Cardiomyopathy CHF (congestive heart failure) Fracture, humerus closed, shaft HFrEF (heart failure with reduced ejection fraction) HLD (hyperlipidemia) Humerus fracture Hyperlipidemia Hypertension Hypokalemia ITP PAD (peripheral artery disease) Home Medications cholecalciferol (vitamin D3) 25 mcg (1,000 unit) tablet 1,000 unit PO DAILY supplement 06/22/14 [History Last Taken 12/10/21] docusate sodium 100 mg capsule 100 mg PO DAILY PRN PRN Constipation 06/22/14 [History Last Taken 12/09/21] acetaminophen 500 mg tablet (Acetaminophen Pain Relief) 1,000 mg PO Q6H PRN Pain (Scale Score 1-10) 10/29/21 [History Last Taken Unknown] melatonin 5 mg tablet 5 mg PO QHS PRN Sleep 10/29/21 [History Last Taken 10/28/21] atorvastatin 20 mg tablet 20 mg PO QHS Colesterol 30 days #30 tabs 11/20/21 [Rx Last Taken 12/10/21] apixaban 2.5 mg tablet (Eliquis) 2.5 mg PO BID Anticoagulant #180 tabs 12/03/21 [Rx Last Taken 12/09/21] carvedilol 6.25 mg tablet 3.125 mg PO BIDCM 12/03/21 [History Last Taken 12/10/21] ondansetron HCl 4 mg tablet 4 mg PO Q8H 12/03/21 [History Last Taken Unknown] furosemide 40 mg tablet 40 mg PO DAILY 30 days #30 tabs 12/05/21 [Rx Last Taken 12/10/21] potassium chloride 20 mEq tablet,extended release(part/cryst) (Klor-Con M) 20 meq PO .every other day Cardiac health 30 days #30 tabs 12/05/21 [Rx Last Taken 12/09/21] Allergy/AdvReac Type Severity Reaction Status Date / Time Tetanus Vaccines and Toxoid Allergy Low Verified 12/03/21 11:46 [Tetanus Vaccines & Toxoid] platelets Family History Brother Heart disease Sister Heart disease Mother CVA (cerebral vascular accident) Sister Cancer Surgical History H/O eye surgery H/O splenectomy H/O: hysterectomy History of laparoscopic cholecystectomy Social History household members: none Smoking Status: Former smoker alcohol intake: never substance use type: does not use ROS Constitutional Constitutional: Reports weakness Eyes Eyes: Reports as per HPI ENT HEENT: Reports as per HPI Cardiovascular Cardiovascular: Reports dyspnea and orthopnea Respiratory/Chest Respiratory/Chest: Reports dyspnea Gastrointestinal Gastrointestinal: Reports abdominal pain Genitourinary Genitourinary: Reports as per HPI Musculoskeletal Musculoskeletal: Reports as per HPI Integumentary Integumentary: Reports as per HPI Neurologic Neurologic: Reports as per HPI Psychiatric Psychiatric: Reports as per HPI Physical Exam Const alert, oriented x3 and no apparent distress Orientation / Consciousness: awake HEENT normocephalic and head/scalp atraumatic HEENT Narrative: Hearing grossly impaired Eyes PERRL, EOMs intact bilaterally, conjunctivae normal and no scleral icterus Neck full ROM and supple Resp Auscultation: diminished lung sounds bilateral lower Cardio Rate: tachycardic Rhythm: abnormal rhythm irregularly irregular Heart Sounds: S1 normal and S2 normal GI normal to inspection, nondistended, normoactive bowel sounds, soft to palpation and non-tender Extremity no pedal edema Skin no rashes or lesions noted Psych mental status grossly normal Risk Stratification Risk Stratification Applicable: No Procedure Criteria Type of Procedure Procedure Type: Elective Elective Risks - COVID COVID Risk Discussion: The surgeon/proceduralist and patient have discussed in detail the risk of exposure to and/or potential harm posed by the COVID-19 virus with having a surgery/procedure at this time versus the risk of delaying the surgery/procedure. It is not possible to know either the risk of delaying the surgery or procedure or chance of getting an infection with perfect accuracy, but a joint decision was made between the patient and the surgeon/proceduralist to proceed at this time with the scheduled surgery/procedure as indicated on the consent form. Objective Data Vital Signs: Vital Signs Temp Pulse Resp BP Pulse Ox O2 Del Method O2 Flow Rate 97.9 F 98 20 H 104/75 97 Nasal Cannula 2 12/11/21 15:12/11/21 15:00 12/11/21 15:00 12/11/21 15:12/11/21 15:00 12/11/21 15:00 12/11/21 15:06 Oxygen Flow Rate (L/min) 2 Oxygen Delivery Method Nasal Cannula Weight: 147 lb 0.773 oz Body Mass Index (BMI) 26.0 Intake & Output: Intake and Output for Last 24 Hours 12/09/21 12/10/21 12/11/21 23:59 23:59 23:59 Intake Total 750 / 750 Output Total 200 / 200 Balance 550 / 550 Lab / Micro Data Result Diagrams: 12/11/21 04:30 12/11/21 04:30 Labs: Laboratory Results - last 24 hr 12/11/21 04:30: WBC 12.0 H, RBC 4.80, Hgb 14.1, Hct 41.7, MCV 86.9, MCH 29.4, MCHC 33.8, RDW Std Deviation 42.4, RDW Coeff of Nam 13.4, Plt Count 231, MPV 10.8, Immature Gran % (Auto) 0.300, Neut % (Auto) 67.3, Lymph % (Auto) 23.1, [place] % (Auto) 7.9, Eos % (Auto) 1.0, Baso % (Auto) 0.4, Absolute Neuts (auto) 8.1 H, Absolute Lymphs (auto) 2.76, Nucleated RBC % 0 12/11/21 04:30: Sodium 131 L, Potassium 4.4, Chloride 99, Carbon Dioxide 22.0, Anion Gap 10, BUN 21 H, Creatinine 1.40 H, Estim Creat Clear Calc 24.91, Est GFR (MDRD) Af Amer 46 L, Est GFR (MDRD) Non-Af 38 L, BUN/Creatinine Ratio 15.0, Glucose 127 H, Calcium 8.9, Total Bilirubin 0.70, AST 30, ALT 58 H, Alkaline Phosphatase 64, Troponin I High Sens 19, Total Protein 6.0 L, Albumin 3.2, Globulin 2.8, Albumin/Globulin Ratio 1.1 12/11/21 04:30: B-Natriuretic Peptide 1413.5 H 12/11/21 04:52: Lactic Acid 1.5 12/11/21 06:55: Urine Color Yellow, Urine Clarity Clear, Urine pH 6.0, Ur Specific [place] 1.015, Urine Protein 30 H, Urine Glucose (UA) Normal, Urine Ketones 5 H, Urine Occult Blood 50 H, Urine Nitrite Negative, Urine Bilirubin Negative, Urine Urobilinogen Normal, Ur Leukocyte Esterase 100 H, Urine RBC 0-5 SEEN, Urine WBC 10-25 SEEN, Ur Squamous Epith Cells 10-25 SEEN, Urine Bacteria 1+, Hyaline Casts 0-5 SEEN, Urine Mucus 0 SEEN 12/11/21 10:23: Troponin I High Sens 32 12/11/21 16:16: Troponin I High Sens 33 Micro: Microbiology 12/11/21 04:55 Nasal Secretion SARS-CoV-2 & FLU Antigen (Rapid) - Final 12/11/21 04:56 Stool Stool Occult Blood (GELY) - Final Occult Blood Positive Cardiology Labs/Tests 12/11/21 04:30: WBC 12.0 H, RBC 4.80, Hgb 14.1, Hct 41.7, MCV 86.9, MCH 29.4, MCHC 33.8, Plt Count 231, MPV 10.8, Immature Gran % (Auto) 0.300, Neut % (Auto) 67.3, Lymph % (Auto) 23.1, [place] % (Auto) 7.9, Eos % (Auto) 1.0, Baso % (Auto) 0.4, Absolute Neuts (auto) 8.1 H, Nucleated RBC % 0 12/11/21 04:30: Sodium 131 L, Potassium 4.4, Chloride 99, Carbon Dioxide 22.0, Anion Gap 10, BUN 21 H, Creatinine 1.40 H, Est GFR (MDRD) Af Amer 46 L, Est GFR (MDRD) Non-Af 38 L, BUN/Creatinine Ratio 15.0, Glucose 127 H, Calcium 8.9, Total Bilirubin 0.70 12/11/21 04:30: B-Natriuretic Peptide 1413.5 H 12/11/21 04:52: Lactic Acid 1.5 12/11/21 06:55: Urine Color Yellow, Urine Clarity Clear, Urine pH 6.0, Ur Specific [place] 1.015, Urine Protein 30 H, Urine Glucose (UA) Normal, Urine Ketones 5 H, Urine Occult Blood 50 H, Urine Nitrite Negative, Urine Bilirubin Negative, Urine Urobilinogen Normal, Ur Leukocyte Esterase 100 H, Urine RBC 0-5 SEEN, Urine WBC 10-25 SEEN Rhythm: Atrial fibrillation/flutter EKG: Atrial fibrillation/flutter; left bundle branch block pattern Echocardiogram from 10/29/2021: Interpretation Summary The study was technically difficult. ? Mildly dilated left ventricle. Moderate global left ventricular systolic dysfunction. The estimated ejection fraction is 30 %. The left atrium is moderately enlarged. The right atrium is moderately enlarged. There is mild mitral annular calcification. Mild focal mitral valve calcification of the anterior leaflet. The mitral valve chordae are thickened and/or calcified. Moderate (2+) mitral valve insufficiency. Ebsteins anomaly of the tricuspid valve. Moderate (2+) tricuspid valve insufficiency. Mild focal aortic valve calcification. Echolucency c/w a pleural effusion. Right ventricular systolic pressure estimated to be 41 mmHg. Unable to assess diastolic dysfunction. Stress test: DATE OF SERVICE:? 10/07/2016 An 81-year-old lady for preoperative cardiac evaluation. Resting EKG demonstrates normal sinus rhythm with a rate of 67 beats per minute.? Normal intervals are noted.? Left bundle-branch block is noted.? Resting blood pressure was 148/80. 0.4 mg of regadenoson was infused per usual protocol followed by rapid intravenous saline flush injection.? Continuous EKG monitoring was performed.? The patient maintained sinus rhythm with a left bundle-branch block throughout the recording.? The resting blood pressure was 148/80 with a peak blood pressure of 158/68.? No clinical angina was noted. MYOCARDIAL PERFUSION PROTOCOL: 11.2 mCi of sestamibi was injected at rest.? 0.4 mg of regadenoson was infused per usual protocol.? At peak infusion, 32.7 mCi of sestamibi was injected.? Stress images were obtained.? Stress and rest images were reconstructed and compared in the short axes, vertical long and horizontal long axes.? Gated images were also obtained. PERFUSION SPECT ANALYSIS: Review of the images demonstrated reduced perfusion noted in the mid anterior wall, apex and the inferoapical wall.? The mid septum also has reduced perfusion.? This appears to be present on the stress and rest images to a similar extent.? The above changes are likely secondary to left bundle-branch block pattern and/or a previous infarct.? , however, is unlikely. GATED SPECT ANALYSIS: The gated ejection fraction is noted to be 57% with septal hypokinesis present. CONCLUSION: 1.? Pharmacologic myocardial perfusion stress test with evidence of left bundle-branch block. 2.? Anteroseptal perfusion defect noted, likely secondary to a left bundle-branch block abnormality or previous infarct. 3.? No ischemia noted. Heart catheterization from 10/31/2021: CONCLUSIONS Normal Left Ventricular End Diastolic Pressure Global LV systolic dysfunction- Moderate LVEF: by LV gram 30 % [place] Multivessel CAD (non obstructive) Comment: Fluoroscopic findings and angiographic findings compatible with atherosclerosis/calcification of the thoracic aorta and calcification of the iliac/femoral arterial system bilaterally. RECOMMENDATIONS Risk factor modification Medical therapy Consider future PVS evaluation for concerns of PAD invloving the iliac/femoral arterial system CORONARY ANGIOGRAPHY DOMINANCE:? Left Dominant LEFT HEART ASSESSMENT Left Ventricular Ejection Fraction: by LV Gram 30 % Global Hypokinesis - Moderate Normal Left Ventricular End Diastolic Pressure LVEDP: 9 mmHg LEFT MAIN: Moderate calcification LEFT ANTERIOR DESCENDING ARTERY: PROX LAD: Moderate calcification, Mild luminal irregularities CIRCUMFLEX ARTERY: OSTIAL CIRC: 25 % Stenosis PROX CIRC: Mild luminal irregularities RAMUS: Mild luminal irregularities RIGHT CORONARY ARTERY: Angiographically normal AORTIC ROOT: Atherosclerotic Calcified Radiography Diagnostic Testing: Radiology Impression Chest X-Ray 12/11/21 04:43 IMPRESSION: Interstitial prominence throughout suggesting pulmonary vascular congestion/CHF. Electronically Signed: Cornell Casillas DO at 5:23 EDT , Abdomen/Pelvis CT 12/11/21 06:18 IMPRESSION: No acute findings in the abdomen or pelvis. No intra-abdominal free air or free fluid collections. Bilateral pleural effusions unchanged. Atherosclerosis of the abdominal aorta and major branch vessels. Mild cardiomegaly. Electronically Signed: Jp Childress MD at 7:37 EDT Reading Location ID and State: [id number] / , Service support ,
[2021-12-11 19:08] LABS: Amylase 39 U/L (25-115); Lipase 83 U/L (73-393)
[2021-12-11] MEDS: Digoxin 250 MCG/ML Ampul 500 MCG IV (20:21)
[2021-12-11] MEDS: Furosemide 40 MG/4 ML Vial IV (20:27)
[2021-12-11] MEDS: MELATONIN 10 MG TABLET 5 MG PO (20:30)
[2021-12-11] MEDS: SACUBITRIL/VALSARTAN 24/26 MG TABLET 1 EACH PO (20:32)
[2021-12-11] MEDS: Atorvastatin Calcium 20 MG Tablet PO (20:32)
[2021-12-12] VITALS (12 sets, daily range): BP systolic 103–128; BP diastolic 47–58; PULSE 55–83; RESP 18–20; TEMP 36.2–36.7; O2SAT 94–97
[2021-12-12 06:24] LABS: Absolute Lymphocyte Count 2.46 X10^3/uL (0.83-4.51); Basophil# 0.08 X10^3/uL; Basophil% 0.6 % (0-1); Eosinophils% 1.6 % (0-5); Hematocrit 41.1 % (37-47); Hemoglobin 13.9 g/dL (12.0-15.0); Lymphocyte # 2.46 X10^3/ul (0.83-4.51); Lymphocyte % 19.2 % (19-41); Mean Corp Hgb Conc 33.8 g/dL (32-36); Mean Corpuscular Hgb 29.4 pg (27.0-32.0); Mean Corpuscular Volume 87.1 fL (81-99); Mean Platelet Vol. 10.9 fl (6.2-12.0); Monocyte# 1.03 X10^3/uL; NRBC Flagged by Analyzer 0 % (0-5); Neutrophil % 70.3 % (47-70); Platelet Count 229 K/mm3 (150-450); RBC Distribution Width CV 13.5 % (11.6-14.6); RBC Distribution Width SD 42.7 fl (35.1-43.9); Red Blood Count 4.72 M/mm3 (4.2-5.4); White Blood Count 12.8 K/mm3 (4.4-11.0)
[2021-12-12 07:10] LABS: Anion Gap 9 (5-15); BUN 20 mg/dL (7-18); BUN/Creat Ratio 16.9 RATIO (10-20); Calcium,Total 8.7 mg/dL (8.5-10.1); Chloride 102 mmol/L (98-107); Creatinine, Serum 1.18 mg/dL (0.55-1.02); EST Glomerular Filtration Rate 46 mL/min (>60); Est Glom Filt Rate - Afr Amer 56 mL/min (>60); Estimated Creatinine Clearance 28.31 ml/min; Glucose 102 mg/dL (74-106); Potassium 3.3 mmol/L (3.5-5.1); Sodium Level 137 mmol/L (136-145)
--- NOTE | 2021-12-12 08:05 | PCM.PN.HOSP ---
Subjective Subjective Only walked 8 feet w therapy today as she felt that she was going to faint. Objective Data Objective Data Vital Signs: Vital Signs Temp Pulse Resp BP Pulse Ox O2 Del Method O2 Flow Rate 36.2 C L 80 18 117/51 L 96 Room Air 2 12/12/21 05:28 12/12/21 07:00 12/12/21 05:28 12/12/21 05:28 12/12/21 05:28 12/12/21 05:28 12/12/21 02:21 Oxygen Flow Rate (L/min) 2 Oxygen Delivery Method Room Air Weight: 64.8 kg Body Mass Index (BMI) 26.0 Intake & Output: Intake and Output for Last 24 Hours 12/10/21 12/11/21 12/12/21 23:59 23:59 23:59 Intake Total 1130 / 1130 Output Total 1125 / 1125 1600 / 1600 Balance -1600 / -1600 Lab / Micro Data Result Diagrams: 12/12/21 05:38 12/12/21 05:38 Labs: Laboratory Results - last 24 hr 12/11/21 10:23: Troponin I High Sens 32 12/11/21 16:16: Troponin I High Sens 33 12/11/21 16:16: Amylase 39, Lipase 83 12/12/21 05:38: WBC 12.8 H, RBC 4.72, Hgb 13.9, Hct 41.1, MCV 87.1, MCH 29.4, MCHC 33.8, RDW Std Deviation 42.7, RDW Coeff of Nam 13.5, Plt Count 229, MPV 10.9, Immature Gran % (Auto) 0.300, Neut % (Auto) 70.3 H, Lymph % (Auto) 19.2, [place] % (Auto) 8.0, Eos % (Auto) 1.6, Baso % (Auto) 0.6, Absolute Neuts (auto) 9.0 H, Absolute Lymphs (auto) 2.46, Nucleated RBC % 0 12/12/21 05:38: Sodium 137, Potassium 3.3 L, Chloride 102, Carbon Dioxide 26.0, Anion Gap 9, BUN 20 H, Creatinine 1.18 H, Estim Creat Clear Calc 28.31, Est GFR (MDRD) Af Amer 56 L, Est GFR (MDRD) Non-Af 46 L, BUN/Creatinine Ratio 16.9, Glucose 102, Calcium 8.7 Micro: Microbiology 12/11/21 04:55 Nasal Secretion SARS-CoV-2 & FLU Antigen (Rapid) - Final 12/11/21 04:56 Stool Stool Occult Blood (GELY) - Final Occult Blood Positive Physical Exam Const alert and no apparent distress Resp normal respiratory effort, no retractions and no use of accessory muscles Cardio regular rate, regular rhythm, S1 normal heart sound and S2 normal heart sound GI GI Narrative: abdominal pain. no rebound. Extremity normal to inspection Neuro Sensorium / Orientation: awake and alert Assessment & Plan Assessment/Plan (1) Generalized weakness: PLAN: PT OT evaluate and treat Did discuss with patient's, though not sure how much she was able to hear as well as her [id number]. They do not want to return to the transitional care unit and are not really interested in a care home facility. I did talk to them about other options such as staying with the [id number] or other family members but encouraged them to discuss among some cells further as well as with case management. 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 But did state that this does happen particularly for elderly with multiple medical comorbidities. We will evaluate to see if there is any underlying issues that may be contributing to this. Thus far patient's urinalysis is negative and no pneumonia. (2) HFrEF (heart failure with reduced ejection fraction): PLAN: Not sure there is really an acute component and this may be more chronic as her imaging appears to be relatively stable. EF of 30% Nonischemic cardiomyopathy Currently on room air and in no respiratory distress Patient did receive IV furosemide in the emergency room Patient's [id number] is just upset and feeling the patient is falling through the cracks in regards to her overall management., Did advise that there are failures not primary reason for her admission as she is currently hemodynamically stable, but stated that we would be addressing this while she was here and will have cardiology see patient in the hospital. Placed back on sacubitril/valsartan Started on spironolactone check orthostatic vitals. (3) GI bleed: QUALIFIERS: GI bleed type/associated pathology: unspecified gastrointestinal hemorrhage type Qualified Code(s): K92.2 - Gastrointestinal hemorrhage, unspecified PLAN: According to the patient's ydwyrnju-[id number]-bon patient has hemorrhoids. Heme positive here Abdominal CT was unremarkable for any acute intra-abdominal process. Hold apixaban for now Currently, the patient hemoglobin is stable. Hg stable (4) Atrial fibrillation: QUALIFIERS: Atrial fibrillation type: unspecified Qualified Code(s): I48.91 - Unspecified atrial fibrillation PLAN: Was tachycardic. We will monitor on telemetry. Cardiology following Carvedilol increased to 6.25 BID. (5) Pleural effusion: PLAN: Reviewed CTA of the chest that she had performed on October [address] abdomen pelvis. Pleural effusions look more or less the same. These are most likely transudative due to heart failure. Given that patient is currently hemodynamically stable and not in any respiratory distress I do not feel a thoracentesis would be necessary at this time. (6) Abdominal pain: QUALIFIERS: Abdominal location: unspecified location Qualified Code(s): R10.9 - Unspecified abdominal pain PLAN: CT negative. Pancreatitis ruled out: Lipase and amylase negative. Ischemic colitis ruled out: lactic acid negative. PLAN: Plan VTE prophylaxis: SCDs Charges/Coding Visit Charges Inpatient E&M: 71761 Subs Hosp L2
[2021-12-12] MEDS: Cholecalciferol (VIT D3) 25 MCG TABLET (1,000 UNITS) PO (08:19)
[2021-12-12] MEDS: SACUBITRIL/VALSARTAN 24/26 MG TABLET 1 EACH PO ×2 (08:19→20:46)
[2021-12-12] MEDS: Carvedilol 6.25 MG Tablet PO (08:19)
[2021-12-12] MEDS: Furosemide 40 MG Tablet PO ×2 (08:19→17:14)
[2021-12-12] MEDS: Spironolactone 25 MG Tablet PO (08:19)
--- NOTE | 2021-12-12 09:55 | PN.CARD_ITS ---
Subjective Subjective The patient looks more comfortable today with respect to her respiratory status and she states her breathing is much better. Objective Data Vital Signs: Vital Signs Temp Pulse Resp BP Pulse Ox O2 Del Method O2 Flow Rate 97.2 F L 80 18 117/51 L 96 Room Air 2 12/12/21 05:28 12/12/21 07:00 12/12/21 05:28 12/12/21 05:28 12/12/21 05:28 12/12/21 05:28 12/12/21 02:21 Oxygen Flow Rate (L/min) 2 Oxygen Delivery Method Room Air Weight: 142 lb 13.753 oz Body Mass Index (BMI) 26.0 Intake & Output: Intake and Output for Last 24 Hours 12/10/21 12/11/21 12/12/21 23:59 23:59 23:59 Intake Total 1130 / 1130 Output Total 1125 / 1125 1600 / 1600 Balance -1600 / -1600 Lab / Micro Data Result Diagrams: 12/12/21 05:38 12/12/21 05:38 Labs: Laboratory Results - last 24 hr 12/11/21 10:23: Troponin I High Sens 32 12/11/21 16:16: Troponin I High Sens 33 12/11/21 16:16: Amylase 39, Lipase 83 12/12/21 05:38: WBC 12.8 H, RBC 4.72, Hgb 13.9, Hct 41.1, MCV 87.1, MCH 29.4, MCHC 33.8, RDW Std Deviation 42.7, RDW Coeff of Nam 13.5, Plt Count 229, MPV 10.9, Immature Gran % (Auto) 0.300, Neut % (Auto) 70.3 H, Lymph % (Auto) 19.2, [place] % (Auto) 8.0, Eos % (Auto) 1.6, Baso % (Auto) 0.6, Absolute Neuts (auto) 9.0 H, Absolute Lymphs (auto) 2.46, Nucleated RBC % 0 12/12/21 05:38: Sodium 137, Potassium 3.3 L, Chloride 102, Carbon Dioxide 26.0, Anion Gap 9, BUN 20 H, Creatinine 1.18 H, Estim Creat Clear Calc 28.31, Est GFR (MDRD) Af Amer 56 L, Est GFR (MDRD) Non-Af 46 L, BUN/Creatinine Ratio 16.9, Glucose 102, Calcium 8.7 Cardiology Labs/Tests 12/12/21 05:38: WBC 12.8 H, RBC 4.72, Hgb 13.9, Hct 41.1, MCV 87.1, MCH 29.4, MCHC 33.8, Plt Count 229, MPV 10.9, Immature Gran % (Auto) 0.300, Neut % (Auto) 70.3 H, Lymph % (Auto) 19.2, [place] % (Auto) 8.0, Eos % (Auto) 1.6, Baso % (Auto) 0.6, Absolute Neuts (auto) 9.0 H, Nucleated RBC % 0 12/12/21 05:38: Sodium 137, Potassium 3.3 L, Chloride 102, Carbon Dioxide 26.0, Anion Gap 9, BUN 20 H, Creatinine 1.18 H, Est GFR (MDRD) Af Amer 56 L, Est GFR (MDRD) Non-Af 46 L, BUN/Creatinine Ratio 16.9, Glucose 102, Calcium 8.7 Rhythm: Atrial fibrillation/flutter Physical Exam Const alert, oriented x3 and no apparent distress Orientation / Consciousness: awake HEENT normocephalic and head/scalp atraumatic HEENT Narrative: Hearing grossly impaired Eyes PERRL, EOMs intact bilaterally, conjunctivae normal and no scleral icterus Neck full ROM and supple Resp Auscultation: diminished lung sounds bilateral (Improved compared to yesterday) lower Cardio Rate: tachycardic Rhythm: abnormal rhythm irregularly irregular Heart Sounds: S1 normal and S2 normal GI normal to inspection, nondistended, normoactive bowel sounds, soft to palpation and non-tender Extremity no pedal edema Skin no rashes or lesions noted Psych mental status grossly normal Assessment & Plan Assessment/Plan (1) HFrEF (heart failure with reduced ejection fraction): PLAN: The patient has a history of heart failure with reduced ejection fraction. At the present time it appears she has acute on chronic systolic mediated CHF. She will continue to be monitored. She has already undergone noninvasive and invasive valuation. Her medications are being adjusted to increase her beta-kiera dose, adjust her diuretics, and add afterload reducing agents-all as tolerated. (2) Non-ischemic cardiomyopathy: PLAN: The patient has a history of non-CAD related cardiomyopathy. She has recently undergone noninvasive and invasive evaluation. She will need to continue medical management. If over time despite medical management her left ventricular systolic function does not improve then she may need to be considered as to whether or not she is a candidate for primary prevention ICD therapy at her age. (3) CAD (coronary artery disease): PLAN: The patient has a history of nonobstructive CAD. She will continue risk factor evaluation and care. (4) Atrial fibrillation: QUALIFIERS: Atrial fibrillation type: unspecified Qualified Code(s): I48.91 - Unspecified atrial fibrillation PLAN: The patient appears to have findings compatible with atrial fibrillation/flutter. This is not a new diagnosis for her. She should continue medical therapy for rate control. Ideally she would be on anticoagulant therapy, however, if there is concern about other hemorrhagic issues then this may have to be temporarily held. (5) HLD (hyperlipidemia): PLAN: The patient should continue lipid-lowering therapy based upon her cardiovascular condition as best as possible. (6) Hypertension: PLAN: His blood pressure can be followed with adjustment of her medications as deemed appropriate. (7) Generalized weakness: PLAN: It is unclear whether the patient's sensation of weakness is related to her underlying atrial dysrhythmias or her acute on chronic systolic mediated CHF superimposed upon her history of an underlying non-CAD related cardiomyopathy with diminished LV systolic function versus noncardiovascular issues. From a cardiac standpoint she will continue optimization of her medications as best as possible. She may need to be evaluated for noncardiovascular issues as well. (8) Abdominal discomfort: PLAN: She does have abdominal discomfort. The etiology is unclear at this time. Her amylase and lipase levels appear to be within normal ranges. Depending upon her abdominal status she may need further evaluation from a noncardiovascular standpoint. Addt'l Comments Overall, at the present time, the patient will continue medical management with an attempt to optimize her medications as best as possible and tolerated. This note was generated using a voice recognition system and there may be incorrect words, spelling or punctuation that were not noted when reviewing the office note prior to saving. Procedure Criteria Type of Procedure Procedure Type: Elective Elective Risks - COVID COVID Risk Discussion: The surgeon/proceduralist and patient have discussed in detail the risk of exposure to and/or potential harm posed by the COVID-19 virus with having a surgery/procedure at this time versus the risk of delaying the surgery/procedure. It is not possible to know either the risk of delaying the surgery or procedure or chance of getting an infection with perfect accuracy, b ut a joint decision was made between the patient and the surgeon/proceduralist to proceed at this time with the scheduled surgery/procedure as indicated on the consent form.
[2021-12-12] MEDS: Digoxin 250 MCG/ML Ampul IV (10:46)
[2021-12-12] MEDS: 0.9% Saline Lock 10 ML Syringe IV (10:47)
--- NOTE | 2021-12-12 14:56 | CASEMGMT ---
RN KRISTINA in to discuss discharge planning with patient and daughter in law Cynthia. Cynthia states that if patient would need to go to SNF that [facility] is their first choice. RN KRISTINA updated DYLAN Vance regarding request for referral to [facility]. CM will continue to follow this patient and plan for a safe discharge.
--- NOTE | 2021-12-12 15:23 | CASEMGMT ---
Social Work Referral for [facility] home placement. This secondary social studies teacher met with patient and patient [id number], Cynthia in room. Cynthia is patient health care power of family law attorney and patient provided verbal permission for this secondary social studies teacher to speak openly with Cynthia present. This secondary social studies teacher broached conversation of half-way placement per conversation with RN KRISTINA. Cynthia confirms that choices are [facility] and second choice is [facility]. Cynthia states only if we need it. Cynthia states that current level of functioning that patient is not able to return to home. This secondary social studies teacher provided Cynthia with list of [facility] facilities that are local to patient geographical region. Cynthia thanked this secondary social studies teacher and returned list to this secondary social studies teacher stating we got one last time. Telephone call to [facility] Cassie Martin. Cassie confirms to have an open bed and to be able to review clinicals. Clinical information faxed. Social Work to continue to follow. Aileen GARIBAY, AVANI
[2021-12-12] MEDS: Carvedilol 12.5 MG Tablet PO (17:14)
--- NOTE | 2021-12-12 19:48 | EKG12_ITS ---
Test Reason : Blood Pressure : / mmHG Vent. Rate : 116 BPM Atrial Rate : 116 BPM P-R Int : 112 ms QRS Dur : 144 ms QT Int : 376 ms P-R-T Axes : 000 064 153 degrees QTc Int : 522 ms Sinus tachycardia Left bundle branch block Abnormal ECG When compared with ECG of 11-DEC-2021 04:53, MANUAL COMPARISON REQUIRED, DATA IS UNCONFIRMED Confirmed by ROCÍO LARSEN, NHUNG ([id number]), website/blog editor DAMARIS RAINES ([id number]) on 12/13/2021 10:10:39 AM Referred By: Confirmed By:NHUNG ALFORD MD
--- NOTE | 2021-12-12 20:07 | EKG12_ITS ---
Test Reason : RHYTHM CHANGE Blood Pressure : / mmHG Vent. Rate : 061 BPM Atrial Rate : 000 BPM P-R Int : 000 ms QRS Dur : 148 ms QT Int : 428 ms P-R-T Axes : 000 -23 180 degrees QTc Int : 430 ms Atrial fibrillation Left bundle branch block Abnormal ECG When compared with ECG of 11-DEC-2021 11:53, MANUAL COMPARISON REQUIRED, DATA IS UNCONFIRMED Confirmed by ROCÍO LARSEN, NHUNG ([id number]), food editor DAMARIS RAINES ([id number]) on 12/14/2021 9:35:09 AM Referred By: Confirmed By:NHUNG ALFORD MD
[2021-12-12] MEDS: Atorvastatin Calcium 20 MG Tablet PO (20:46)
[2021-12-12] MEDS: MELATONIN 10 MG TABLET 5 MG PO (20:46)
[2021-12-12] MEDS: APIXABAN 2.5 MG TABLET PO (20:46)
[2021-12-12] MEDS: Acetaminophen 500 MG Tablet 1000 MG PO (20:47)
[2021-12-13] VITALS (7 sets, daily range): BP systolic 102–131; BP diastolic 49–57; PULSE 69–79; RESP 16–18; TEMP 36.1–36.7; O2SAT 95–97
[2021-12-13 06:10] LABS: Anion Gap 7 (5-15); BUN 23 mg/dL (7-18); Calcium,Total 8.7 mg/dL (8.5-10.1); Chloride 104 mmol/L (98-107); Creatinine, Serum 1.15 mg/dL (0.55-1.02); EST Glomerular Filtration Rate 48 mL/min (>60); Est Glom Filt Rate - Afr Amer 57 mL/min (>60); Estimated Creatinine Clearance 29.05 ml/min; Glucose 104 mg/dL (74-106); Potassium 3.2 mmol/L (3.5-5.1); Sodium Level 139 mmol/L (136-145)
--- NOTE | 2021-12-13 08:02 | PCM.PN.HOSP ---
Subjective Subjective Feels well. Abdominal pain improved, but still ongoing. Intermittent. Worse after taking pills, eating, and at night. Diarrhea after taking potassium. Objective Data Objective Data Vital Signs: Vital Signs Temp Pulse Resp BP Pulse Ox O2 Del Method O2 Flow Rate 36.7 C 69 18 120/49 L 95 Room Air 2 12/13/21 03:07 12/13/21 03:07 12/13/21 03:07 12/13/21 03:07 12/13/21 07:14 12/13/21 07:14 12/12/21 02:21 Oxygen Flow Rate (L/min) 2 Oxygen Delivery Method Room Air Weight: 65.3 kg Body Mass Index (BMI) 26.0 Intake & Output: Intake and Output for Last 24 Hours 12/11/21 12/12/21 12/13/21 23:59 23:59 23:59 Intake Total 1130 / 1130 980 / 980 Output Total 1125 / 1125 2200 / 2200 300 / 300 Balance 5 / 5 -1220 / -1220 -300 / -300 Lab / Micro Data Result Diagrams: 12/12/21 05:38 12/13/21 05:12 Labs: Laboratory Results - last 24 hr 12/13/21 05:12: Sodium 139, Potassium 3.2 L, Chloride 104, Carbon Dioxide 28.0, Anion Gap 7, BUN 23 H, Creatinine 1.15 H, Estim Creat Clear Calc 29.05, Est GFR (MDRD) Af Amer 57 L, Est GFR (MDRD) Non-Af 48 L, BUN/Creatinine Ratio 20.0, Glucose 104, Calcium 8.7 Micro: Microbiology 12/11/21 04:55 Nasal Secretion SARS-CoV-2 & FLU Antigen (Rapid) - Final 12/11/21 04:56 Stool Stool Occult Blood (GELY) - Final Occult Blood Positive Physical Exam Const alert and no apparent distress Resp normal respiratory effort and no retractions Resp Narrative: bibasilar crackles. Cardio regular rate, regular rhythm, S1 normal heart sound and S2 normal heart sound GI normal to inspection, nondistended, normoactive bowel sounds Assessment & Plan Assessment/Plan (1) Generalized weakness: PLAN: PT OT evaluate and treat Did discuss with patient's, though not sure how much she was able to hear as well as her wkqvyjgz-fc-hhl. They do not want to return to the transitional care unit and are not really interested in a long term facility. I did talk to them about other options such as staying with the ylnclisy-qp-ddm or other family members but encouraged them to discuss among some cells further as well as with case management. The patient's neefskhr-ls-bjw is a nurse and geriatrics and is not familiar with people declining rapidly and they are doing well. But did state that this does happen particularly for elderly with multiple medical comorbidities. We will evaluate to see if there is any underlying issues that may be contributing to this. Thus far patient's urinalysis is negative and no pneumonia. CM DW DIL, plan is for [facility]. Awaiting on insurance authorization (2) HFrEF (heart failure with reduced ejection fraction): PLAN: Not sure there is really an acute component and this may be more chronic as her imaging appears to be relatively stable. EF of 30% Nonischemic cardiomyopathy Currently on room air and in no respiratory distress Patient did receive IV furosemide in the emergency room Patient's rwkcjjqd-yb-zfa is just upset and feeling the patient is falling through the cracks in regards to her overall management., Did advise that there are failures not primary reason for her admission as she is currently hemodynamically stable, but stated that we would be addressing this while she was here and will have cardiology see patient in the hospital. Placed back on sacubitril/valsartan Started on spironolactone orthostatic vitals negative Meds: Sacubitril/valsartan BID, carvedilol 12.5 BID, spironolactone 25 (3) GI bleed: QUALIFIERS: GI bleed type/associated pathology: unspecified gastrointestinal hemorrhage type Qualified Code(s): K92.2 - Gastrointestinal hemorrhage, unspecified PLAN: According to the patient's dmwpucjo-ap-wtu patient has hemorrhoids. Heme positive here Abdominal CT was unremarkable for any acute intra-abdominal process. Currently, the patient hemoglobin is stable. Hg stable (4) Atrial fibrillation: QUALIFIERS: Atrial fibrillation type: unspecified Qualified Code(s): I48.91 - Unspecified atrial fibrillation PLAN: Was tachycardic. We will monitor on telemetry. Cardiology following Meds: Carvedilol 12.5 BID, digoxin 125 mcg, apixaban 2.5 BID (5) Pleural effusion: PLAN: Reviewed CTA of the chest that she had performed on October [address] abdomen pelvis. Pleural effusions look more or less the same. These are most likely transudative due to heart failure. Given that patient is currently hemodynamically stable and not in any respiratory distress I do not feel a thoracentesis would be necessary at this time. (6) Abdominal pain: QUALIFIERS: Abdominal location: unspecified location Qualified Code(s): R10.9 - Unspecified abdominal pain PLAN: CT negative. Pancreatitis ruled out: Lipase and amylase negative. Ischemic colitis ruled out: lactic acid negative. Has tried omeprazole in past. Pt agreeable to pantoprazole trial (7) Hypokalemia: PLAN: Replace Replace mag PLAN: Plan VTE prophylaxis: SCDs Charges/Coding Visit Charges Inpatient E&M: 50849 Subs Hosp L2
[2021-12-13] MEDS: Potassium Chloride Oral Tablet 20 MEQ 40 MEQ PO (08:29)
[2021-12-13] MEDS: Carvedilol 12.5 MG Tablet PO (08:29)
[2021-12-13] MEDS: Spironolactone 25 MG Tablet PO (08:30)
[2021-12-13] MEDS: SACUBITRIL/VALSARTAN 24/26 MG TABLET 1 EACH PO (08:31)
[2021-12-13] MEDS: APIXABAN 2.5 MG TABLET PO (08:31)
[2021-12-13] MEDS: Cholecalciferol (VIT D3) 25 MCG TABLET (1,000 UNITS) PO (08:32)
[2021-12-13] MEDS: Furosemide 40 MG Tablet PO (08:32)
[2021-12-13] MEDS: Digoxin 125 MCG Tablet PO (08:33)
[2021-12-13 08:36] LABS: Magnesium 1.7 mg/dL (1.6-2.6)
--- NOTE | 2021-12-13 08:55 | PCM.PN.CARD ---
Subjective Subjective The patient is awake and alert. She has been up in the chair. She has been up and ambulating with a walker in her room. She believes her breathing has improved overall. Objective Data Vital Signs: Vital Signs Temp Pulse Resp BP Pulse Ox O2 Del Method O2 Flow Rate 96.7 F L 83 18 92/66 100 Room Air 2 12/13/21 08:49 12/13/21 08:49 12/13/21 08:49 12/13/21 08:49 12/13/21 08:49 12/13/21 08:49 12/12/21 02:21 Oxygen Flow Rate (L/min) 2 Oxygen Delivery Method Room Air Weight: 143 lb 15.39 oz Body Mass Index (BMI) 26.0 Intake & Output: Intake and Output for Last 24 Hours 12/11/21 12/12/21 12/13/21 23:59 23:59 23:59 Intake Total 1130 / 1130 980 / 980 Output Total 1125 / 1125 2200 / 2200 300 / 300 Balance 5 / 5 -1220 / -1220 -300 / -300 Lab / Micro Data Result Diagrams: 12/12/21 05:38 12/13/21 05:12 Labs: Laboratory Results - last 24 hr 12/13/21 05:12: Sodium 139, Potassium 3.2 L, Chloride 104, Carbon Dioxide 28.0, Anion Gap 7, BUN 23 H, Creatinine 1.15 H, Estim Creat Clear Calc 29.05, Est GFR (MDRD) Af Amer 57 L, Est GFR (MDRD) Non-Af 48 L, BUN/Creatinine Ratio 20.0, Glucose 104, Calcium 8.7 12/13/21 05:12: Magnesium 1.7 Cardiology Labs/Tests 12/13/21 05:12: Sodium 139, Potassium 3.2 L, Chloride 104, Carbon Dioxide 28.0, Anion Gap 7, BUN 23 H, Creatinine 1.15 H, Est GFR (MDRD) Af Amer 57 L, Est GFR (MDRD) Non-Af 48 L, BUN/Creatinine Ratio 20.0, Glucose 104, Calcium 8.7 12/13/21 05:12: Magnesium 1.7 Rhythm: Atrial fibrillation Physical Exam Const alert, oriented x3 and no apparent distress Orientation / Consciousness: awake HEENT normocephalic and head/scalp atraumatic HEENT Narrative: Hearing grossly impaired Eyes PERRL, EOMs intact bilaterally, conjunctivae normal and no scleral icterus Neck full ROM and supple Resp clear to auscultation bilaterally Cardio Rate: regular rate Rhythm: abnormal rhythm irregularly irregular Heart Sounds: S1 normal and S2 normal GI normal to inspection, nondistended, normoactive bowel sounds, soft to palpation and non-tender Extremity no pedal edema Skin no rashes or lesions noted Psych mental status grossly normal Assessment & Plan Assessment/Plan (1) HFrEF (heart failure with reduced ejection fraction): PLAN: The patient has a history of heart failure with reduced ejection fraction. At the present time it appears she has acute on chronic systolic mediated CHF. She will continue to be monitored. She has already undergone noninvasive and invasive valuation. Her medications are being adjusted to increase her beta-kiera dose, adjust her diuretics, add agent such as digitalis as tolerated, and add afterload reducing agents-all as tolerated. (2) Non-ischemic cardiomyopathy: PLAN: The patient has a history of non-CAD related cardiomyopathy. She has recently undergone noninvasive and invasive evaluation. She will need to continue medical management. If over time despite medical management her left ventricular systolic function does not improve then she may need to be considered as to whether or not she is a candidate for primary prevention ICD therapy at her age. (3) CAD (coronary artery disease): PLAN: The patient has a history of nonobstructive CAD. She will continue risk factor evaluation and care. (4) Atrial fibrillation: QUALIFIERS: Atrial fibrillation type: unspecified Qualified Code(s): I48.91 - Unspecified atrial fibrillation PLAN: The patient appears to have findings compatible with atrial fibrillation/flutter. This is not a new diagnosis for her. She should continue medical therapy for rate control. Status post a lengthy discussion with the patient and her fkpqsdvz-rr-iqv yesterday evening (please see addendum to yesterday's cardiology progress note) the consensus was to reattempt low-dose anticoagulant therapy and monitor for any obvious hemorrhagic issues. (5) HLD (hyperlipidemia): PLAN: The patient should continue lipid-lowering therapy based upon her cardiovascular condition as best as possible. (6) Hypertension: PLAN: His blood pressure can be followed with adjustment of her medications as deemed appropriate. (7) Generalized weakness: PLAN: It is unclear whether the patient's sensation of weakness is related to her underlying atrial dysrhythmias or her acute on chronic systolic mediated CHF superimposed upon her history of an underlying non-CAD related cardiomyopathy with diminished LV systolic function versus noncardiovascular issues. From a cardiac standpoint she will continue optimization of her medications as best as possible. She may need to be evaluated for noncardiovascular issues as well. (8) Abdominal discomfort: PLAN: She does have abdominal discomfort. The etiology is unclear at this time. Her amylase and lipase levels appear to be within normal ranges. Depending upon her abdominal status she may need further evaluation from a noncardiovascular standpoint. Addt'l Comments The above was discussed and reviewed with the patient this morning. She states after discussing her case with her onxjkxni-mo-rai last night she may consider post hospital care and a ECF/correction unit with the hopes of eventually being able to return home. This note was generated using a voice recognition system and there may be incorrect words, spelling or punctuation that were not noted when reviewing the office note prior to saving. Procedure Criteria Type of Procedure Procedure Type: Elective Elective Risks - COVID COVID Risk Discussion: The surgeon/proceduralist and patient have discussed in detail the risk of exposure to and/or potential harm posed by the COVID-19 virus with having a surgery/procedure at this time versus the risk of delaying the surgery/procedure. It is not possible to know either the risk of delaying the surgery or procedure or chance of getting an infection with perfect accuracy, but a joint decision was made between the patient and the surgeon/proceduralist to proceed at this time with the scheduled surgery/procedure as indicated on the consent form.
--- NOTE | 2021-12-13 09:22 | CASEMGMT ---
Discharge Teradata Solution Architect Shabnam called [facility] and left voicemail in regards to referral. Plan: [place], Waiting Acceptance Shabnam Benson Discharge [employer]adata Solution Architect
--- NOTE | 2021-12-13 11:24 | CASEMGMT ---
Discharge Mountain Or Glacier Guide Cassie called from [facility]. Patient referral has been declined. DYLAN Painting notified. Shabnam will be sending referral to second choice which is [facility]. Plan: [facility], Waiting Acceptance Shabnam Benson Discharge [facility]
--- NOTE | 2021-12-13 12:01 | CASEMGMT ---
Discharge Printing Plate Maker Roxy called from [facility]. Patient has been accepted and can go when medically ready. DYLAN Painting notified. Plan: [facility] Discharge Printing Plate Maker
--- NOTE | 2021-12-13 12:04 | CASEMGMT ---
[facility] notified that pt to d/c to [facility] today. SStbyron ARRIOLA CM
--- NOTE | 2021-12-13 12:30 | CASEMGMT ---
DYLAN let patient and her daughter in law Cynthia know that [facility] has declined patient, but [facility] has accepted. Both asked why [facility] declined and DYLAN stated SW is not sure. They asked SW to find out. They also asked SW to send a referral to [facility]. Cynthia wanted to know who the biomedical equipment technician is at [facility] and if patient would have a private room. Cynthia asked when patient will be discharged. SW let them know patient will be discharged today. Cynthia would like to transport patient. SW will find out the answers to their questions and let them know. DYLAN spoke with Yamilet at [facility] and patient would have a private room. Their biomedical equipment technician is Dr Luther. SW faxed a referral to [facility]. SW spoke with [facility] and they declined patient as they noted patient was argumentative with therapy. SW went back to patient's room and let Cynthia and patient know the information about [facility]. They then told SW they would like [facility]. Cynthia said she will transport patient. She has to leave to take care of something, but she needs as much advance notice as possible. DYLAN told her SW will let her know. Garima Velasco AUTO PAINTER [employer]
[2021-12-13] MEDS: Pantoprazole Sodium 40 MG Tablet PO (12:40)
[2021-12-13] MEDS: 0.9% Saline Lock 10 ML Syringe IV (12:41)
--- NOTE | 2021-12-13 13:29 | PCM.TXEXTCAR ---
Diet Diet Order/Speech Therapy: 12/11/21 08:42 Diet: Cardiac - Heart Healthy Food consistency:: Regular Liquid Consistency:: Regular/Thin Routine Orders/Code Status Routine Lab Work: CBC (weekly) and BMP (Mondays and ) Code Status: DNRCC-A (no intubation) Therapies Weight Bearing: Full weight bearing Physical Therapy: Eval and Treat Occupational Therapy: Eval and Treat Problem/Diagnosis (1) Generalized weakness: Status: Acute Code(s): R53.1 - Weakness Plan: PT OT evaluate and treat Did discuss with patient's, though not sure how much she was able to hear as well as her pmpraocn-pl-ynt. They do not want to return to the transitional care unit and are not really interested in a penitentiary facility. I did talk to them about other options such as staying with the ywqurgut-yu-jdy or other family members but encouraged them to discuss among some cells further as well as with case management. 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 But did state that this does happen particularly for elderly with multiple medical comorbidities. We will evaluate to see if there is any underlying issues that may be contributing to this. Thus far patient's urinalysis is negative and no pneumonia. KRISTINA DW DIL, plan is for [facility]. Awaiting on insurance authorization (2) HFrEF (heart failure with reduced ejection fraction): Status: Acute Code(s): I50.20 - Unspecified systolic (congestive) heart failure Plan: Not sure there is really an acute component and this may be more chronic as her imaging appears to be relatively stable. EF of 30% Nonischemic cardiomyopathy Currently on room air and in no respiratory distress Patient did receive IV furosemide in the emergency room Patient's zbdupmng-ik-hjj is just upset and feeling the patient is falling through the cracks in regards to her overall management., Did advise that there are failures not primary reason for her admission as she is currently hemodynamically stable, but stated that we would be addressing this while she was here and will have cardiology see patient in the hospital. Placed back on sacubitril/valsartan Started on spironolactone orthostatic vitals negative Meds: Sacubitril/valsartan BID, carvedilol 12.5 BID, spironolactone 25 (3) GI bleed: Status: Acute Code(s): K92.2 - Gastrointestinal hemorrhage, unspecified Plan: According to the patient's zcscksst-eo-zqs patient has hemorrhoids. Heme positive here Abdominal CT was unremarkable for any acute intra-abdominal process. Currently, the patient hemoglobin is stable. Hg stable (4) Atrial fibrillation: Status: Acute Code(s): I48.91 - Unspecified atrial fibrillation Plan: Was tachycardic. We will monitor on telemetry. Cardiology following Meds: Carvedilol 12.5 BID, digoxin 125 mcg, apixaban 2.5 BID (5) Pleural effusion: Status: Acute Code(s): J90 - Pleural effusion, not elsewhere classified Plan: Reviewed CTA of the chest that she had performed on October [address] abdomen pelvis. Pleural effusions look more or less the same. These are most likely transudative due to heart failure. Given that patient is currently hemodynamically stable and not in any respiratory distress I do not feel a thoracentesis would be necessary at this time. (6) Abdominal pain: Status: Acute Code(s): R10.9 - Unspecified abdominal pain Plan: CT negative. Pancreatitis ruled out: Lipase and amylase negative. Ischemic colitis ruled out: lactic acid negative. Has tried omeprazole in past. Pt agreeable to pantoprazole trial (7) Hypokalemia: Status: Acute Code(s): E87.6 - Hypokalemia Plan: Replace Replace mag Plan VTE prophylaxis: SCDs Allergies/Procedures Done in Hospital Allergies Tetanus Vaccines and Toxoid [Tetanus Vaccines & Toxoid] Allergy (Verified 12/03/21 11:46) Low platelets Type of Care/Length of Stay Estimated LOS: Convalescent Care Less Than 30 days Type of Care Needed: Skilled Rehab Potential: Fair Prognosis: Good Additional Orders/Day of Discharge Day of Discharge: 12/13/21 Dietary and Speech Recommendations Dietitian Recommendations/Changes: cardiac diet w/ fluid restriction as indicated; 4oz ensure enlive TID w/ meals given reported poor PO intake. Will monitor need for ONS and adjust at time of follow up as indicated. Discharge Plan Admission Admit Date/Time: 12/11/21 08:29 Primary Reason for Your Visit: debility, HFrEF Attending Provider: Mino Saldana Primary Care Provider: Alexys Bond Consulting Providers: Issa Oglesby Discharge Orders/Prescriptions Prescriptions: New furosemide 40 mg Tablet 40 mg PO BIDLX Qty: 0 0RF carvedilol 12.5 mg Tablet 12.5 mg PO BIDCM Qty: 0 0RF potassium chloride [Klor-Con M20] 20 mEq Tablet,Er Particles/Crystals 40 meq PO DAILYCM Qty: 0 0RF digoxin 125 mcg (0.125 mg) Tablet 125 mcg PO DAILY Qty: 0 0RF Entresto 24-26 mg Tablet 1 tab PO BID Qty: 0 0RF spironolactone 25 mg Tablet 25 mg PO DAILY Qty: 0 0RF Continued ondansetron HCl 4 mg tablet 4 mg PO Q8H Eliquis 2.5 mg tablet 2.5 mg PO BID Qty: 180 4RF docusate sodium 100 MG capsule 100 mg PO DAILY PRN PRN (Reason: Constipation) Label Comments: constipation cholecalciferol (vitamin D3) 1,000 UNIT tablet 1,000 unit PO DAILY Label Comments: supplement melatonin 5 mg Tablet 5 mg PO QHS PRN (Reason: Sleep) acetaminophen [Acetaminophen Pain Relief] 500 mg Tablet 1,000 mg PO Q6H PRN (Reason: Pain (Scale Score 1-10)) atorvastatin 20 mg tablet 20 mg PO QHS 30 Days Qty: 30 0RF Discontinued carvedilol 6.25 mg tablet 3.125 mg PO BIDCM potassium chloride [Klor-Con M20] 20 mEq tablet,ER particles/crystals 20 meq PO .every other day 30 Days Qty: 30 2RF furosemide 40 mg tablet 40 mg PO DAILY 30 Days Qty: 30 1RF Referrals / Follow Up: Alexys Bond MD [Primary Care Provider] - Disposition Disposition (needs filled in before D/C Order can be placed): Detention Facility (1) GI bleed Qualifiers: GI bleed type/associated pathology: unspecified gastrointestinal hemorrhage type Qualified Code(s): K92.2 - Gastrointestinal hemorrhage, unspecified (2) Atrial fibrillation Qualifiers: Atrial fibrillation type: unspecified Qualified Code(s): I48.91 - Unspecified atrial fibrillation (3) Abdominal pain Qualifiers: Abdominal location: unspecified location Qualified Code(s): R10.9 - Unspecified abdominal pain
--- NOTE | 2021-12-13 13:35 | DS.PCM_ITS ---
Providers Date of Admission: 12/11/21 Primary Care Physician: Dr. Alexys Bond MD Consultations 12/11/21 17:08 Consult: Cardiology Routine Consulting Provider: Issa Oglesby Reason for Consult: CHF EMERGENT Consult: No MD Notified: Yes Date Notified: 12/11/21 Time Notified: 09:00 Method of Notification: Verbal Reason For Visit: CHF,GENERALIZED WEAKNESS,INABILITY TO AMBULATE Diagnosis Discharge Diagnosis (1) Generalized weakness: Status: Acute Code(s): R53.1 - Weakness Plan: PT OT evaluate and treat Did discuss with patient's, though not sure how much she was able to hear as well as her fybyqxmb-by-fze. They do not want to return to the transitional care unit and are not really interested in a senior living facility. I did talk to them about other options such as staying with the kdcmggci-zm-bkt or other family members but encouraged them to discuss among some cells further as well as with case management. 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 But did state that this does happen particularly for elderly with multiple medical comorbidities. We will evaluate to see if there is any underlying issues that may be contributing to this. Thus far patient's urinalysis is negative and no pneumonia. CM DW DIL, plan is for [facility]. Awaiting on insurance authorization (2) HFrEF (heart failure with reduced ejection fraction): Status: Acute Code(s): I50.20 - Unspecified systolic (congestive) heart failure Plan: Not sure there is really an acute component and this may be more chronic as her imaging appears to be relatively stable. EF of 30% Nonischemic cardiomyopathy Currently on room air and in no respiratory distress Patient did receive IV furosemide in the emergency room Patient's nflrdluf-km-ouf is just upset and feeling the patient is falling through the cracks in regards to her overall management., Did advise that there are failures not primary reason for her admission as she is currently hemodynamically stable, but stated that we would be addressing this while she was here and will have cardiology see patient in the hospital. Placed back on sacubitril/valsartan Started on spironolactone orthostatic vitals negative Meds: Sacubitril/valsartan BID, carvedilol 12.5 BID, spironolactone 25 (3) GI bleed: Status: Acute Code(s): K92.2 - Gastrointestinal hemorrhage, unspecified Qualifiers: GI bleed type/associated pathology: unspecified gastrointestinal hemorrhage type Qualified Code(s): K92.2 - Gastrointestinal hemorrhage, unspecified Plan: According to the patient's xvufzady-xa-khs patient has hemorrhoids. Heme positive here Abdominal CT was unremarkable for any acute intra-abdominal process. Currently, the patient hemoglobin is stable. Hg stable (4) Atrial fibrillation: Status: Acute Code(s): I48.91 - Unspecified atrial fibrillation Qualifiers: Atrial fibrillation type: unspecified Qualified Code(s): I48.91 - Unspecified atrial fibrillation Plan: Was tachycardic. We will monitor on telemetry. Cardiology following Meds: Carvedilol 12.5 BID, digoxin 125 mcg, apixaban 2.5 BID (5) Pleural effusion: Status: Acute Code(s): J90 - Pleural effusion, not elsewhere classified Plan: Reviewed CTA of the chest that she had performed on October [address] abdomen pelvis. Pleural effusions look more or less the same. These are most likely transudative due to heart failure. Given that patient is currently hemodynamically stable and not in any respiratory distress I do not feel a th oracentesis would be necessary at this time. (6) Abdominal pain: Status: Acute Code(s): R10.9 - Unspecified abdominal pain Qualifiers: Abdominal location: unspecified location Qualified Code(s): R10.9 - Unspecified abdominal pain Plan: CT negative. Pancreatitis ruled out: Lipase and amylase negative. Ischemic colitis ruled out: lactic acid negative. Has tried omeprazole in past. Pt agreeable to pantoprazole trial (7) Hypokalemia: Status: Acute Code(s): E87.6 - Hypokalemia Plan: Replace Replace mag Plan VTE prophylaxis: SCDs Medications at Discharge Home Medications cholecalciferol (vitamin D3) 25 mcg (1,000 unit) tablet 1,000 unit PO DAILY supplement 06/22/14 docusate sodium 100 mg capsule 100 mg PO DAILY PRN PRN Constipation 06/22/14 acetaminophen 500 mg tablet (Acetaminophen Pain Relief) 1,000 mg PO Q6H PRN Pain (Scale Score 1-10) 10/29/21 melatonin 5 mg tablet 5 mg PO QHS PRN Sleep 10/29/21 atorvastatin 20 mg tablet 20 mg PO QHS Colesterol 30 days #30 tabs 11/20/21 apixaban 2.5 mg tablet (Eliquis) 2.5 mg PO BID Anticoagulant #180 tabs 12/03/21 ondansetron HCl 4 mg tablet 4 mg PO Q8H 12/03/21 carvedilol 12.5 mg tablet 12.5 mg PO BIDCM #0 tabs 12/13/21 digoxin 125 mcg (0.125 mg) tablet 125 mcg PO DAILY #0 tabs 12/13/21 furosemide 40 mg tablet 40 mg PO BIDLX #0 tabs 12/13/21 potassium chloride 20 mEq tablet,extended release(part/cryst) (Klor-Con M) 40 meq PO DAILYCM #0 tabs 12/13/21 sacubitril 24 mg-valsartan 26 mg tablet (Entresto) 1 tab PO BID #0 tabs 12/13/21 spironolactone 25 mg tablet 25 mg PO DAILY #0 tabs 12/13/21 Hospital Course Operations None Procedures None Summary of Care Provided Minutes Spent on Discharge: 35 Hospital Course: 86-year-old female presents with weakness. Patient was negative for any signs or symptoms of infection. Patient did have some tachycardia and does have a known history atrial fibrillation. Patient's carvedilol was increased from 3.125 mg to 12.5 mg twice daily and patient was also started on digoxin. Heart rate has remained stable. Patient does have chronic heart failure and chronic pleural effusions. Patient's diuretics were further optimized from Lasix 40 daily to twice daily and also adding spironolactone as well as Entresto. Patient does have this abdominal pain has been ongoing for some period of time. CAT scan was negative for any acute process and her lipase and amylase were negative for pancreatitis. Etiology of her abdominal pain is not clear but she states that it is worse when she eats takes medications and at night. Though it is intermittent overall. Did recommend a trial of pantoprazole. Patient had been on omeprazole in the past without any relief. Recommend least couple weeks of pantoprazole. If that does not work then may need to consider gastroenterology evaluation. Weight / BMI Weight Weight: 65.3 kg Body Mass Index (BMI) 26.0 ABG / Lab / Microbiology Data Result Diagrams: 12/12/21 05:38 12/13/21 05:12 Laboratory: Laboratory Results - last 24 hr 12/13/21 05:12: Sodium 139, Potassium 3.2 L, Chloride 104, Carbon Dioxide 28.0, Anion Gap 7, BUN 23 H, Creatinine 1.15 H, Estim Creat Clear Calc 29.05, Est GFR (MDRD) Af Amer 57 L, Est GFR (MDRD) Non-Af 48 L, BUN/Creatinine Ratio 20.0, Glucose 104, Calcium 8.7 12/13/21 05:12: Magnesium 1.7 Microbiology: Microbiology 12/11/21 04:55 Nasal Secretion SARS-CoV-2 & FLU Antigen (Rapid) - Final 12/11/21 04:56 Stool Stool Occult Blood (GELY) - Final Occult Blood Positive D/C Instructions Discharge Diet: Low fat / Low cholesterol Meaningful Use Info Meaningful Use Diagnoses (Choose all that apply): CHF CHF GUTIERREZ/ARB ordered at discharge?: Yes Documented LVEF (%): 30 Discharge Plan Admission Admit Date/Time: 12/11/21 08:29 Primary Reason for Your Visit: debility, HFrEF Attending Provider: Mnio Saldana Primary Care Provider: Alexys Bond Consulting Providers: Issa Oglesby Discharge Orders/Prescriptions Prescriptions: New furosemide 40 mg Tablet 40 mg PO BIDLX Qty: 0 0RF carvedilol 12.5 mg Tablet 12.5 mg PO BIDCM Qty: 0 0RF potassium chloride [Klor-Con M20] 20 mEq Tablet,Er Particles/Crystals 40 meq PO DAILYCM Qty: 0 0RF digoxin 125 mcg (0.125 mg) Tablet 125 mcg PO DAILY Qty: 0 0RF Entresto 24-26 mg Tablet 1 tab PO BID Qty: 0 0RF spironolactone 25 mg Tablet 25 mg PO DAILY Qty: 0 0RF Continued ondansetron HCl 4 mg tablet 4 mg PO Q8H Eliquis 2.5 mg tablet 2.5 mg PO BID Qty: 180 4RF docusate sodium 100 MG capsule 100 mg PO DAILY PRN PRN (Reason: Constipation) Label Comments: constipation cholecalciferol (vitamin D3) 1,000 UNIT tablet 1,000 unit PO DAILY Label Comments: supplement melatonin 5 mg Tablet 5 mg PO QHS PRN (Reason: Sleep) acetaminophen [Acetaminophen Pain Relief] 500 mg Tablet 1,000 mg PO Q6H PRN (Reason: Pain (Scale Score 1-10)) atorvastatin 20 mg tablet 20 mg PO QHS 30 Days Qty: 30 0RF Discontinued carvedilol 6.25 mg tablet 3.125 mg PO BIDCM potassium chloride [Klor-Con M20] 20 mEq tablet,ER particles/crystals 20 meq PO .every other day 30 Days Qty: 30 2RF furosemide 40 mg tablet 40 mg PO DAILY 30 Days Qty: 30 1RF Referrals / Follow Up: Alexys Bond MD [Primary Care Provider] - Disposition Disposition (needs filled in before D/C Order can be placed): Long Term Facility Charges/Coding Visit Charges Inpatient E&M: 09486 Disch Hosp
--- NOTE | 2021-12-13 14:19 | CASEMGMT ---
DYLAN received orders and faxed them to [facility]. RN is getting COVID test. Patient's medication will be done running at 245p. RN said anytime after 330 would be fine. DYLAN called Cynthia and let her know anytime after 330 is fine. Cynthia said she has to wait on her son to get home then she has to stop by patient's house so it will be closer to 5p. DYLAN will let RN and Yamilet at [facility] know this information. DYLAN completed a 7000 on HENS. Garima Velasco [employer] CONDITION[employer] SUPERVISOR AL[employer]
--- NOTE | 2021-12-13 15:30 | CASEMGMT ---
Discharge Test Engineering Manager Shabnam called Yamilet at [facility] and let her know patient family will be picking her up around 5:00pm and negative covid was faxed. Plan: [facility] Discharge Test Engineering Manager
--- NOTE | 2021-12-13 16:34 | NURSING ---
Report called to FLAKO Rdz at [facility]. Pt's daughter in law to transport patient. Should be leaving here around 1700.
--- NOTE | 2021-12-13 17:55 | NURSING ---
All documentation and medication administration completed by Rachelle Moctezuma under the supervision of this RN.
== END 2021-12-13 17:10 | disposition skilled nursing facility (03) | DRG 293 ==
LOC: ED 04:33 → PCU 08:42
PROVIDERS: Internal Medicine Cardiovascular Disease; Emergency Provider Emergency Medicine; PCP Family Medicine
DX: I11.0 Hypertensive heart disease with heart failure (principal); I42.8 Other cardiomyopathies; Z79.01 Long term (current) use of anticoagulants; I48.91 Unspecified atrial fibrillation; I50.22 Chronic systolic (congestive) heart failure; E87.6 Hypokalemia; I44.7 Left bundle-branch block, unspecified; E78.5 Hyperlipidemia, unspecified; I25.10 Atherosclerotic heart disease of native coronary artery without angina pectoris; R53.1 Weakness; Z66 Do not resuscitate; Z51.5 Encounter for palliative care; Z87.891 Personal history of nicotine dependence; R10.9 Unspecified abdominal pain
CPT/HCPCS: 36415; 71045; 74176; 80048; 80053; 81001; 82150; 82274; 83605; 83690; 83735; 83880; 84484; 85025; 87426; 87428; 93005; 97110; 97162; 97166; 97535; 99285; J7030; J7050; A4216; J1940

== ENCOUNTER → 2022-01-19 | Outpatient (CLI) | payer MEDICARE, BC, SELFPAY ==
[2022-01-19 12:14] LABS: Anion Gap 10 (5-15); BUN 25 mg/dL (7-18); BUN/Creat Ratio 19.4 RATIO (10-20); Calcium,Total 9.2 mg/dL (8.5-10.1); Chloride 107 mmol/L (98-107); Creatinine, Serum 1.29 mg/dL (0.55-1.02); EST Glomerular Filtration Rate 42 mL/min (>60); Est Glom Filt Rate - Afr Amer 50 mL/min (>60); Glucose 114 mg/dL (74-106); Potassium 4.8 mmol/L (3.5-5.1); Sodium Level 134 mmol/L (136-145)
== END | disposition home or self-care (01) ==
LOC: LAB 12:00
PROVIDERS: PCP Family Medicine; Visit Provider Family Medicine
DX: R53.81 Other malaise (principal); I50.21 Acute systolic (congestive) heart failure; I48.91 Unspecified atrial fibrillation; R06.09 Other forms of dyspnea; E55.9 Vitamin D deficiency, unspecified
CPT/HCPCS: 80048

== ENCOUNTER 2022-01-31 12:20 | Outpatient (RCR) | payer MEDICARE, BC, SELFPAY ==
[2022-01-31 12:46] LABS: Absolute Lymphocyte Count 1.85 X10^3/uL (0.83-4.51); Absolute Neutrophil Count 6.2 X10^3/uL (2.0-7.7); Basophil# 0.07 X10^3/uL; Basophil% 0.8 % (0-1); Eosinophil# 0.11 X10^3/uL; Eosinophils% 1.2 % (0-5); Hematocrit 41.8 % (37-47); Hemoglobin 14.1 g/dL (12.0-15.0); Lymphocyte # 1.85 X10^3/ul (0.83-4.51); Lymphocyte % 20.4 % (19-41); Mean Corp Hgb Conc 33.7 g/dL (32-36); Mean Corpuscular Hgb 29.6 pg (27.0-32.0); Mean Corpuscular Volume 87.6 fL (81-99); Mean Platelet Vol. 10.7 fl (6.2-12.0); Monocyte# 0.77 X10^3/uL; Monocyte% 8.5 % (0-10); NRBC Flagged by Analyzer 0 % (0-5); Neutrophil # 6.24 X10^3/uL (2.7-7.7); Neutrophil % 68.9 % (47-70); Platelet Count 264 K/mm3 (150-450); RBC Distribution Width CV 14.7 % (11.6-14.6); RBC Distribution Width SD 47.2 fl (35.1-43.9); Red Blood Count 4.77 M/mm3 (4.2-5.4); White Blood Count 9.1 K/mm3 (4.4-11.0)
[2022-01-31 13:15] LABS: ALB/GLOB Ratio 1.1 RATIO (0.9-2.4); AST(SGOT) 29 U/L (15-37); Alanine Aminotransfer ALT/SGPT 49 U/L (13-56); Albumin, Serum 3.1 g/dL (3.2-5.0); Alkaline Phosphatase 64 U/L (45-117); Anion Gap 9 (5-15); BUN 10 mg/dL (7-18); BUN/Creat Ratio 9.5 RATIO (10-20); Calcium,Total 8.8 mg/dL (8.5-10.1); Chloride 103 mmol/L (98-107); Creatinine, Serum 1.05 mg/dL (0.55-1.02); EST Glomerular Filtration Rate 53 mL/min (>60); Est Glom Filt Rate - Afr Amer 64 mL/min (>60); Globulin 2.7 g/dL (2.2-4.2); Glucose 126 mg/dL (74-106); Potassium 3.9 mmol/L (3.5-5.1); Protein, Total 5.8 g/dL (6.4-8.2); Sodium Level 134 mmol/L (136-145)
== END 2022-02-25 23:59 ==
LOC: HHLAB 12:20
PROVIDERS: PCP Family Medicine; Visit Provider Family Medicine
DX: I13.0 Hypertensive heart and chronic kidney disease with heart failure and stage 1 through stage 4 chronic kidney disease, or unspecified chronic kidney disease (principal); I50.22 Chronic systolic (congestive) heart failure; N18.9 Chronic kidney disease, unspecified
CPT/HCPCS: 80053; 85025

== ENCOUNTER → 2022-03-05 | Outpatient (CLI) | payer MEDICARE, BC, SELFPAY ==
--- NOTE | 2022-03-05 12:51 | ECHOL_ITS ---
Reason For Study: CHF Procedure This was a limited 2D transthoracic echocardiogram. The study was technically difficult. Exam performed in department. Left Ventricle Normal LV size. Severe global left ventricular systolic dysfunction. The estimated ejection fraction is 25 %. Unable to assess diastolic dysfunction. Right Ventricle Normal RV size. Normal systolic function. Atria The left atrium is moderately enlarged. The right atrium is severely enlarged. No doppler evidence for ASD. Mitral Valve There is mild mitral annular calcification. Mild diffuse mitral valve thickening. Moderate (2+) mitral valve insufficiency. 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 Moderately severe (3+) eccentric tricuspid valve insufficiency. Right ventricular systolic pressure estimated to be 57 mmHg. Aortic Valve Trisinus/trileaflet aortic valve. Mild focal aortic valve calcification. Pulmonic Valve The pulmonic valve is not well visualized. Great Vessels Calcified aortic root. Pericardium/Pleural No pericardial effusion. MMode/2D Measurements & Calculations LVIDd: 4.8 cm IVSd: 1.5 cm LA dimension: 4.4 cm LVIDs: 4.3 cm LVPWd: 1.1 cm FS: 12.0 % LAV(MOD-sp4): 75.5 ml LA A4 area: 24.6 cm2 RA A4 area: 31.4 cm2 Doppler Measurements & Calculations MV E max chelsea: 104.3 cm/sec TR max chelsea: 348.8 cm/sec TR max P.3 mmHg ECHO/Echo, Limited Study Interpretation Summary The study was technically difficult. Severe global left ventricular systolic dysfunction. The estimated ejection fraction is 25 %. The left atrium is moderately enlarged. The right atrium is severely enlarged. There is mild mitral annular calcification. Mild diffuse mitral valve thickening. Moderate (2+) mitral valve insufficiency. Ebsteins anomaly of the tricuspid valve. Moderately severe (3+) eccentric tricuspid valve insufficiency. Mild focal aortic valve calcification. Calcified aortic root. Right ventricular systolic pressure estimated to be 57 mmHg. Unable to assess diastolic dysfunction. Ordering Physician: Aristides Brooks Referring Physician: MD Ronda Alexys Performed By: Bret Douglass RCS
[2022-03-05 13:46] LABS: Hemoglobin 13.4 g/dL (12.0-15.0); Mean Corp Hgb Conc 33.5 g/dL (32-36); Mean Corpuscular Hgb 29.9 pg (27.0-32.0); Mean Corpuscular Volume 89.3 fL (81-99); Platelet Count 247 K/mm3 (150-450); RBC Distribution Width CV 15.9 % (11.6-14.6); RBC Distribution Width SD 51.2 fl (35.1-43.9); Red Blood Count 4.48 M/mm3 (4.2-5.4); White Blood Count 9.8 K/mm3 (4.4-11.0)
[2022-03-05 14:23] LABS: ALB/GLOB Ratio 1.2 RATIO (0.9-2.4); AST(SGOT) 12 U/L (15-37); Alanine Aminotransfer ALT/SGPT 30 U/L (13-56); Alkaline Phosphatase 61 U/L (45-117); Anion Gap 9 (5-15); BUN 14 mg/dL (7-18); BUN/Creat Ratio 11.2 RATIO (10-20); Calcium,Total 8.8 mg/dL (8.5-10.1); Chloride 100 mmol/L (98-107); Creatinine, Serum 1.25 mg/dL (0.55-1.02); EST Glomerular Filtration Rate 43 mL/min (>60); Est Glom Filt Rate - Afr Amer 52 mL/min (>60); Globulin 2.6 g/dL (2.2-4.2); Glucose 128 mg/dL (74-106); Potassium 4.4 mmol/L (3.5-5.1); Protein, Total 5.6 g/dL (6.4-8.2); Sodium Level 132 mmol/L (136-145)
== END | disposition home or self-care (01) ==
LOC: CVS 12:43
PROVIDERS: PCP Family Medicine; Referring Provider Nurse Practitioner Family; Visit Provider Nurse Practitioner Family
DX: I11.0 Hypertensive heart disease with heart failure (principal); I50.9 Heart failure, unspecified; D69.3 Immune thrombocytopenic purpura
CPT/HCPCS: 36415; 80053; 85027; 93308